=== PATIENT | female | born 1960 | race Two or more races ===

== ENCOUNTER 2016-09-01 18:25 | Emergency (ER) | payer MEDICAID ==
[2016-09-09 12:13] VITALS: BMI 26.9
== END 2016-09-01 22:44 | disposition home or self-care (01) ==
LOC: D.ER 18:25
DX: E11.65 Type 2 diabetes mellitus with hyperglycemia (principal); I10 Essential (primary) hypertension; R53.1 Weakness

== ENCOUNTER 2016-09-08 21:25 | Inpatient (IN) | payer MEDICAID ==
[~2016-09-08] VITALS: Ht 157.5 cm; Wt 62.9 kg
[2016-09-09 00:49] LABS: BASOPHILS 0.2 % (0.0-2.0); HEMATOCRIT 41.3 % (36.0-48.0); IMMATURE GRANULOCYTES 0.2 % (0-5); LYMPHOCYTES 39.2 % (15-50); MCH 30.8 pg (26.0-34.0); MCHC 33.9 g/dL (31.0-37.0); MCV 90.8 fL (80.0-100.0); MEAN PLATELET VOLUME 11.3 fL (7.4-10.4); MONOCYTES 6.6 % (2-11); NEUTROPHILS 52.8 % (40-80); PLATELET COUNT 222 10x3/uL (130-400); RBC 4.55 10x6/uL (4.00-5.40); RDW 13.9 % (11.5-14.5)
[2016-09-09 00:50] LABS: APPEARANCE CLEAR (CLEAR); BILIRUBIN NEGATIVE (NEGATIVE); COLOR YELLOW (YELLOW); GLUCOSE 50 mg/dL (NEGATIVE); KETONE NEGATIVE (NEGATIVE); LEUKOCYTE ESTERASE NEGATIVE (NEGATIVE); NITRITE NEGATIVE (NEGATIVE); PROTEIN NEGATIVE (NEGATIVE); SPECIFIC GRAVITY 1.015 (1.005-1.020); UROBILINOGEN NORMAL (NORMAL)
[2016-09-09 01:07] LABS: APTT 25.7 SECONDS (22.8-39.4); INR 0.89 (0.85-1.17); PROTIME 11.9 SECONDS (11.6-15.0)
[2016-09-09 01:13] LABS: ALBUMIN 3.3 g/dL (3.4-5.0); ALKALINE PHOSPHATASE 108 U/L (46-116); ALT (SGPT) 20 U/L (10-68); CALC OSMOLALITY 284 mosm/kg (275-300); CARBON DIOXIDE 26.5 mmol/L (21.0-32.0); CHLORIDE - SERUM 100 mmol/L (98-107); POTASSIUM - SERUM 3.8 mmol/L (3.5-5.1); PROTEIN - SERUM 7.5 g/dL (6.4-8.2); SODIUM 136 mmol/L (136-145); UREA NITROGEN 29 mg/dL (7-18); eGFR NON AFRICAN AMERICAN 61 mL/min (90-120)
[2016-09-09 01:18] LABS: CKMB 0.1 U/L (0.0-3.6); CREATINE KINASE 66 UL (21-215); GLUCOSE 223 mg/dL (74-106); TROPONIN-I < 0.017 ng/mL (0.000-0.060)
[2016-09-09 01:19] LABS: C-REACTIVE PROTEIN 1.4 mg/dL (0.0-0.9); MAGNESIUM - SERUM 1.9 mg/dL (1.8-2.4); THYROID STIMULATING HORMONE 1.49 uIU/mL (0.36-3.74)
[2016-09-09 02:17] VITALS: BP 153/61; BMI 26.9
[2016-09-09] MEDS ORDERED: NITROSTAT0.4 MG SL (03:18)
[2016-09-09] MEDS ORDERED: GLUCOTROL 5 MG T5 MG PO (03:19)
[2016-09-09] MEDS ORDERED: ZOCOR20 MG PO (03:20)
[2016-09-09] MEDS ORDERED: COREG25 MG PO (03:20)
[2016-09-09] MEDS ORDERED: PLAVIX75 MG PO (03:21)
[2016-09-09] MEDS ORDERED: NORVASC10 MG PO (03:25)
[2016-09-09] MEDS ORDERED: LIPITOR80 MG PO (03:26)
[2016-09-09] MEDS ORDERED: HYDROCHLOROTHIA25 MG PO (03:27)
[2016-09-09] MEDS ORDERED: LANTUS INSULIN10 ML SC (03:28)
[2016-09-09] MEDS ORDERED: NOVOLOG100 U/M1 SC (03:29)
[2016-09-09] MEDS ORDERED: WELLBUTRIN XL150 M1 PO (03:30)
[2016-09-09] MEDS ORDERED: BUPROPION HCL150 M1 PO (03:33)
[2016-09-09 04:57] VITALS: BP 151/61
--- NOTE | 2016-09-09 07:53 | NUR ---
LAYING ON LEFT SIDE, AROUSES EASILY. DENIES NEEDS AT PRESENT TIME. ON HEART MONITOR SHOWING SR, HR 64. LEFT HAND SEEN WITH SALINE LOCK. NPO STATUS FOR MRI. WILL CONTINUE TO MONITOR.
[2016-09-09 08:00] VITALS: BP 126/61
[2016-09-09 11:54] VITALS: BP 136/61
[2016-09-09 12:13] VITALS: Ht 157.5 cm; Wt 62.9 kg
--- NOTE | 2016-09-09 13:48 | NUR ---
TO MRI VIA WHEELCHAIR.
--- NOTE | 2016-09-09 14:26 | NUR ---
RETURNS FROM MRI.
--- NOTE | 2016-09-09 14:35 | NUR ---
RATIONALE FOR SCD'S EXPLAINED. REFUSES SCD'S
[2016-09-09 15:49] VITALS: BP 136/61
--- NOTE | 2016-09-09 19:39 | NUR ---
BEDSIDE REPORT COMPLETED NO DISTRESS OBSERVED PT EYES CLOSED AND PT APPERS TO BE SLEEPING BED LOW AND LOCKED AND CALL LIGHT IN REACH WILL MONITOR
--- NOTE | 2016-09-09 21:33 | NUR ---
PT ASSESSMENT COMPLETED PT LAYING IN BED TV ON PT PHONE IN PT HAND AND NO DISTRESS OBSERVED PT DENIES PAIN, NEEDS OR WANTS AT THIS TIME RESPERATIONS EVEN AND UNLABORED CALL LIGHT IN REACH SRX2 BE LOW AND LOCKED WILL MONITOR
[2016-09-09 22:37] VITALS: BP 150/58
[2016-09-10 01:38] VITALS: BP 146/46
--- NOTE | 2016-09-10 02:34 | NUR ---
PT LAYING IN BED NO DISTRESS OBSERVED CALL LIGHT IN [facility] SRX2 BED LOW AND LOCKED WILL MONITOR
--- NOTE | 2016-09-10 03:30 | NUR ---
PT LAYING IN BED NO DISTRES OBSERVED CALL LIGHT IN REACH SRX2 BED LOW AND LOCKED WILL MONITOR
[2016-09-10 05:55] VITALS: BP 148/47
--- NOTE | 2016-09-10 06:24 | NUR ---
T REFUSING LAB DRAW AT THIS TIME
--- NOTE | 2016-09-10 07:21 | NUR ---
RECEIVED PT REPORT. NO OTHER NEEDS AT THIS TIME. WILL CONTINUE PLAN OF CARE.,
[2016-09-10 07:49] VITALS: BP 146/64
--- NOTE | 2016-09-10 07:57 | NUR ---
PT IS ALERT. ASSESSMENT DONE PER FLOWSHEET. NO CO PAIN AT THIS TIME. WILL CONTINUE TO MNONTIOR
[2016-09-10 08:23] LABS: BASOPHILS 0.2 % (0.0-2.0); EOSINOPHILS 1.1 % (0-7); HEMATOCRIT 39.5 % (36.0-48.0); HEMOGLOBIN 13.1 g/dL (12-16); IMMATURE GRANULOCYTES 0.2 % (0-5); LYMPHOCYTES 31.7 % (15-50); MCH 30.4 pg (26.0-34.0); MCHC 33.2 g/dL (31.0-37.0); MCV 91.6 fL (80.0-100.0); MEAN PLATELET VOLUME 11.3 fL (7.4-10.4); MONOCYTES 9.7 % (2-11); NEUTROPHILS 57.1 % (40-80); PLATELET COUNT 215 10x3/uL (130-400); RBC 4.31 10x6/uL (4.00-5.40); RDW 13.6 % (11.5-14.5); WBC 9.1 10x3/uL (4.8-10.8)
[2016-09-10 08:52] LABS: ANION GAP 12.2 mmol/L (8-16); CALCIUM 9.2 mg/dL (8.5-10.1); CARBON DIOXIDE 26.7 mmol/L (21.0-32.0); CHOL - HDL RATIO 3.9 ratio (2.3-4.1); CREATININE - SERUM 1.2 mg/dL (0.6-1.3); POTASSIUM - SERUM 3.9 mmol/L (3.5-5.1)
[2016-09-10 11:47] VITALS: BP 134/62
--- NOTE | 2016-09-10 13:00 | NUR ---
PT IS ALERT. NO SS OF DISTRESS AT THIS TIME. WILL CONTINUE TO MONITOR.
[2016-09-10 15:54] VITALS: BP 155/57
--- NOTE | 2016-09-10 20:10 | NUR ---
REPORT RECEIVED AND CARE ASSUMED. PATIENT ALERT. ASSESSMENT COMPLETED PER FLOW SHEET. NO S/S OF DISTRESS NOTED. WILL CONTINUE TO MONITOR.
[2016-09-10 20:37] VITALS: BP 139/43
[2016-09-11 00:17] VITALS: BP 134/45
[2016-09-11 04:29] VITALS: BP 150/63
--- NOTE | 2016-09-11 07:27 | NUR ---
RECEIVED PT REPORT. NO OTHER NEEDS AT THIS TIME. WILL CONTINUE PLAN OF CARE. NO OTHER NEEDS AT THIS TIME. WILL CONTINUE TO MONITOR. L
[2016-09-11 07:45] VITALS: BP 123/55
[2016-09-11 11:57] VITALS: BP 125/46
--- NOTE | 2016-09-11 12:19 | NUR ---
PT IS ALERT. ASSESSMENT DONE PER FLOWSHEET. NO CO PAIN AT THIS TIME. WILL CONTINUE TO MONITOR.
[2016-09-11] MEDS ORDERED: BAYER ASPIRIN325 MG PO (12:31)
--- NOTE | 2016-09-11 15:17 | NUR ---
PT IS ALERT. DC TEACHING IS COMPLETE AND IV DC'D NO OTHER NEEDS.
--- NOTE | 2016-09-12 15:45 | EC ---
PATIENT:TJ CRAIG DATE OF SERVICE: 09/10/16 SEX: F MEDICAL RECORD: [id number] DATE OF : 60 LOCATION:D. D.211 AGE OF PATIENT: 56 ADMISSION DATE: 09/10/16 REFERRING PHYSICIAN: INTERPRETING PHYSICIAN: NELIDA DAMICO M.D. ECHOCARDIOGRAM REPORT ECHO CHARGES 4 ECHO COMPLETE CLINICAL DIAGNOSIS: TIA HX HTN ECHOCARDIOGRAPHIC MEASUREMENTS (adult normal given) AC root (d.<3.7cm) 3.1 LV Septum d (<1.2 cm> 1.6 Valve Excursion 1.9 LV Septum (systole) 1.9 Left Atria (s.<4.0cm> 3.6 LVPW d(<1.2cm) 1.5 RV (d.<2.3cm) 2.9 LVPW (sytole) 1.9 LV diastole(<5.6CM) 4.3 MV E-F(>70mm/sec) LV systole 2.8 LVOT Diameter 1.6 MV exc.(>10mm) 1.6 Est.ejection fraction (50-75%) Pericardial Effusion N DOPPLER: LVIT A 87.0 E 73.0 LA RVSP 15 LVOT 93 AOP1/2T Asc. Ao 133 RVOT 71 RA PA 86 AV Gradient Peak 7.04 AV Mean 4.0 AV Area 1.4 MV Gradient Peak 3.05 MV Mean 1.13 MV Area COMMENTS: Larry Car Operator: Mynor MARTINEZ Traffic Incident Management Manager:2 Dr. Damico TAPE# PACS DATE OF SERVICE: 09/10/2016 REFERRING PHYSICIAN: Blake Todd MD INDICATION: TIA. DESCRIPTION: Left ventricle demonstrates left ventricular hypertrophy. No wall motion abnormalities are noted. Estimated ejection fraction is 60%. There is no evidence of any mass or thrombus in the left ventricle apex. Mitral valve is structurally normal. There is no regurgitation or prolapse seen. Left atrium ECHOCARDIOGRAM REPORT [id number] TJ CRAIG is normal in size. The aortic valve is trileaflet. There is no stenosis or regurgitation seen. Right ventricle is mildly dilated. Tricuspid valve is structurally normal. There is trivial regurgitation seen. Right atrium is normal in size. There is no pericardial effusion noted. IMPRESSION: 1. Left ventricular hypertrophy with preserved ejection fraction of 60%. 2. Trivial tricuspid regurgitation. 3. No evidence of any mass or thrombus in the left ventricle apex. 4. No evidence of atrial septal defect, ventricular septal defect or patent foramen ovale. TRANSINT:[id number] Voice Confirmation ID: [id number] DOCUMENT ID: [id number] NELIDA DAMICO M.D. at 1545 CC: [id number] DICTATION DATE: 09/10/16 0959 EGG PACKER: 09/10/16 2144 DIS IN 09/11/16 [id number] [place] [address]
== END 2016-09-11 15:20 | disposition home or self-care (01) | DRG 66 ==
LOC: D.ER 21:25 → D.M2 09-09 01:15 → OBSVTIME 09-09 01:15 → D.M2 09-09 01:15
PROVIDERS: Family Medicine; ADMIT Family Medicine
DX: I63.8 Other cerebral infarction (principal); I65.02 Occlusion and stenosis of left vertebral artery; I25.10 Atherosclerotic heart disease of native coronary artery without angina pectoris; E11.9 Type 2 diabetes mellitus without complications; Z79.4 Long term (current) use of insulin; I10 Essential (primary) hypertension; R51 Headache; E78.5 Hyperlipidemia, unspecified; E86.0 Dehydration; Z95.5 Presence of coronary angioplasty implant and graft; Z72.0 Tobacco use

== ENCOUNTER 2016-12-04 02:56 | Observation (INO) | payer MEDICAID ==
[~2016-12-04] VITALS: Ht 157.5 cm; Wt 64.5 kg
--- NOTE | ~2016-12-04 | OP ---
PATIENT NAME: TJ CRAIG MEDICAL RECORD: [id number] :60 [facility] DATE:12/04/16 SURGEON: REYNOLD JOHNSON MD DATE OF OPERATION: 12/05/2016 PROCEDURE: Left heart catheterization, selective coronary angiography, right femoral artery approach. CATHETERS: A 5-Spanish sheath, 5/4 left and right Óscar, 5/4 pig. The procedure was tolerated. We proceeded with PTCA stenting of the right coronary. FINDINGS: Left ventriculography in the 30-degree CORD[place] view: Normal wall motion and normal systolic function. CORONARY ANATOMY: LEFT MAIN: Left main is free of disease. LAD: LAD has a 50% stenosis before takeoff of the diagonal. CIRCUMFLEX: Circumflex is free of disease. RIGHT CORONARY ARTERY: Has a 90% plus stenosis ____ takeoff of the RV branch. IMPRESSION: Acute coronary syndrome secondary to critical disease of the right coronary. PLAN: Intervention momentarily. DESCRIPTION OF PROCEDURE: A 5-Spanish sheath was exchanged for a 6-Spanish sheath. A hockey stick guiding catheter with side holes provided good guide catheter support followed by a 300 cm [place] XT wire was placed across the occluded right down its course of vessel followed by a 2.5 x 18 mm ____ Resolute drug-eluting stent was inflated up to 14 atmospheres for 45 seconds. Final injection shows excellent resolution of a 90% stenosis. No significant residual, good step down distally. MARY flow was 3 throughout the procedure. Heparin was used in the case. Sheath closed with ExoSeal device. TRANSINT:[id number] Voice Confirmation ID: [id number] DOCUMENT ID: [id number] REYNOLD JOHNSON MD CC: [id number] DICTATION DATE: 12/05/16 1447 TECHNICAL MARKETING CONSULTANT: 12/06/16 0004 DIS IN 12/05/16 [facility] [address] [id number]
--- NOTE | ~2016-12-04 | HEMODYNAMI ---
PATIENT:TJ CRAIG MEDICAL RECORD: [id number] : 60 LOCATION:[facility] [id number] ADMISSION DATE: 12/04/16 Generatedon:12/05/201614:50 Patient name: TJ CRAIG Patient #: [id number] : 1960 Date of study: 12/05/2016 Page: Of Hemodynamic Procedure Report Patient Data Patient Demographics Procedure consent was obtained First Name: TJ Gender: Female Last Name: KIARA : 1960 Patient #: [id number] Age: 56 year(s) Race: Other SSN: [id number] Additional ID: [id number] Contact details Address: [address] [place] [address] State: [place] City: [place] Zip code: [address] Admission Admission Data Admission Date: 12/04/2016 Admission Time: 5:49 Arrival Date: 12/04/2016 Arrival Time: 5:49 Admit Source: Other Insurance Payor: Private Room #: D.1220 health insurance Weight (lbs.): 143.3 Weight (kg.): 65 Lab Results Lab Result Date: 12/05/2016 Lab Result Time: 0:00 Biochemistry Name Units Result Min Max BUN mg/dl 22 --(----)-* 7 18 Creatinine mg/dl 1.2 --(---*)-- 0.6 1.3 CBC Name Units Result Min Max Hemoglobin g/dl 12 *-(----)-- 13.5 17.5 Procedure Procedure Types Cath Procedure Diagnostic Procedure LHC LHC w/Coronaries PCI Procedure Coronary Stent Initial Miscellaneous Procedures Moderate Sedation up to 15 minutes Procedure Description Procedure Date Procedure Date: 12/05/2016 Procedure Start Time: 14:13 Procedure End Time: 14:42 Procedure Staff Name Function Hood Martínez MD Performing Physician Seble Jefferson RT Scrub Carolina Bassett RN Nurse Brionna Rodriguez RT Monitor Indication Angina Procedure Data Cath Procedure Fluoroscopy Diagnostic fluoroscopy Total fluoroscopy Time: 4.9 time: 4.9 min min Diagnostic fluoroscopy Total fluoroscopy dose: 597 dose: 597 mGy mGy Contrast Material Contrast Material Type Amount (ml) Isovue 370 92 Entry Location Entry Primary Successful Side Size Upsize Upsize Entry Closure Succes sful Closure Location (Fr) 1 (Fr) 2 (Fr) Remarks Device Remarks Femoral Right 5 Fr 6 Fr Exoseal artery Short Estimated blood loss: 5 ml Diagnostic catheters Device Type Used For End Catheter Placement Cordis 5Fr JL 4.0 Left Coronary Catheter (MP) Angiography Cordis 5Fr 3DRC Catheter Right Coronary (MP) Angiography Cordis 5Fr Pigtail LV Angiography Catheter (MP) Procedure Complications No complications Procedure Medications Medication Administration Route Dosage Oxygen NC 2 l/min Heparin Flush Bag added to field 2 bags (1000units/500ml NS) 0.9% NaCl I.V. 100 ml/hr Versed I.V. 1 mg Fentanyl I.V. 50 mcg Versed I.V. 1 mg Fentanyl I.V. 50 mcg Versed I.V. 1 mg Fentanyl I.V. 50 mcg Heparin Bolus I.V. 4000 units Nitroglycerin IC/IA I.C. 150 mcg Hemodynamics Rest HGB: 12 (g/dl) Heart Rate: 68 (bpm) Pressure Samples Time Site Value (mmHg) Purpose Heart Use Rate(bpm) 14:25 LV 170/53,57 Snapshot 70 Gradients Valve Time Site Site Mean SEP/DFP Peak To Heart Use 1 2 (mmHg) (sec/min) Peak Rate (mmHg) (bpm) Aortic 14:26 LV AO 69 Snapshots Pre Cath Intra NCS Post Cath Vital Signs Time Heart Resp SPO2 etCO2 OX0zpis NIBP (mmHg) Rhythm Pain Sedation Rate (ipm) (%) (mmHg) (mmHg) Status Level (bpm) 14:06:14 67 17 94 0 0 171/76(125) NSR 0 (11) 10(A) , No pain 14:10:32 65 19 94 0 0 139/71(108) NSR 0 (11) 10(A) , No pain 14:14:52 65 17 93 0 0 138/68(100) NSR 0 (11) 10(A) , No pain 14:19:06 66 20 93 0 0 137/76(104) NSR 0 (11) 10(A) , No pain 14:23:22 66 16 94 0 0 147/69(125) NSR 0 (11) 9(A) , No pain 14:27:30 70 16 93 0 0 137/80(113) NSR 0 (11) 9(A) , No pain 14:31:36 69 17 94 0 0 124/74(117) NSR 0 (11) 9(A) , No pain 14:35:50 70 19 92 0 0 119/70(85) NSR 0 (11) 9(A) , No pain 14:39:59 72 17 94 0 0 127/73(108) NSR 0 (11) 10(A) , No pain Medications Time Medication Route Dose Verified Delivered Reason Notes Effectiveness by by 14:05:31 Oxygen NC 2 Hood Figueroa used for l/min St. Shamar Bassett RN procedure 14:05:48 Heparin Flush added 2 Hood Morataya used for Bag to bags [facility]. Shamar Day (1000units/500ml field MD GONZALEZ NS) 14:05:57 0.9% NaCl I.V. 100 Hood Figueroa Per physician ml/hr St. Shamar Bassett RN, MD 14:08:01 Fentanyl I.V. 50 Hood Figueroa for sedation mcg [facility]. Shamar Bassett RN, MD 14:08:56 Versed I.V. 1 mg Hood Figueroa for sedation St. Shamar Bassett RN, MD 14:14:28 Versed I.V. 1 mg Hood Figueroa for sedation St. Shamar Bassett RN, MD 14:14:32 Fentanyl I.V. 50 Hood Figueroa for sedation mcg St. Shamar Bassett RN, MD 14:23:41 Versed I.V. 1 mg Hood Figueroa for sedation St. Shamar Bassett RN, MD 14:23:46 Fentanyl I.V. 50 Hood Figueroa for sedation mcg St. Shamar Bassett RN, MD 14:27:24 Heparin Bolus I.V. 4000 Hood Figueroa for verifi ed units St. Shamar Bassett RN anticoagulation with dr MD schulte 14:38:22 Nitroglycerin I.C. 150 Hood Morataya for IC/IA mcg St. Shamar Chavis MD, MD Procedure Log Time Note 13:30:44 Diagnostic Cath Status : Elective 13:31:07 Carolina Bassett RN sent for patient. Start room use. 13:31:08 Time tracking: Regular hours 13:31:13 Plan of Care:Hemodynamics will remain stable., Cardiac rhythm will remain stable., Comfort level will be maintained., Respiratory function will remain adequate., Patient/ family verbilizes understanding of procedure., Procedure tolerated without complication., Recovers from procedure without complications.. 13:44:54 Informed consent obtained and on chart 13:45:01 Admit Source: Other 13:45:09 Arrival Date: 12/04/2016 5:49:00 AM 13:45:18 Insurance Payor : Private health insurance 13:47:05 Lab Result : Hemoglobin 12 g/dl 13:47:05 Lab Result : Creatinine 1.2 mg/dl 13:47:05 Lab Result : BUN 22 mg/dl 13:47:35 Indication : Angina 13:56:30 Patient received from Other to CCL 1 Alert and oriented. Tansferred to table in Supine position. 13:56:31 Warm blankets applied, and kingston hugger turned on for patient comfort. 13:56:32 Correct patient and procedure confirmed by team. 13:56:33 ECG and BP/O2 sat monitors applied to patient. 14:04:56 Baseline sample Acquired. 14:04:56 Vital chart was started 14:05:00 Rhythm: sinus rhythm 14:05:01 Full Disclosure recording started 14:05:05 H&P Date Dictated: 12/05/2016 New H&P dictated by physician.. 14:05:07 Pre-procedure instructions explained to patient. 14:05:07 Pre-op teaching completed and patient verbalized understanding. 14:05:08 Family in waiting room. 14:05:11 Patient NPO since Midnight. 14:05:15 Is the patient allergic to Iodine/contrast media? No. 14:05:17 Was the patient premedicated? No 14:05:19 Is patient on blood thinner?Yes 14:05:23 Patient diabetic? Yes. 14:05:24 If diabetic: On Metformin? Yes 14:05:28 If on Metformin: Last Dose? 12/04/2016 14:05:31 Oxygen 2 l/min NC was administered by Carolina Bassett RN; used for procedure; 14:05:33 Previous problem with sedation/anesthesia? No ? 14:05:41 Snore? Yes 14:05:42 Sleep apnea? No 14:05:43 Deviated septum? No 14:05:44 Opens mouth fully? Yes 14:05:45 Sticks out tongue? Yes 14:05:47 Airway obstruction? No ? 14:05:48 Heparin Flush Bag (1000units/500ml NS) 2 bags added to field was administered by Hood Martínez MD; used for procedure; 14:05:50 Dentures? No ? 14:05:56 Pre procedure: right dorsailis pedis pulse 1+ Palpable, but thready & weak; easily obliterated 14:05:57 0.9% NaCl 100 ml/hr I.V. was administered by Carolina Bassett RN; Per physician; 14:05:58 Patient pain scale 0/10 ?. 14:06:05 IV patent on arrival in right antecubital with 0.9% NaCl at [facility]. 14:06:07 Lab results completed and on chart. 14:06:13 Right groin area was prepped with chlora-prep and draped in sterile fashion 14:06:14 Alarms reviewed by R. N. 14:06:14 Sharps counted by scrub and verified by R.N. 14:06:16 Physician arrived 14:06:17 --------ALL STOP TIME OUT------ 14:06:17 Final Timeout: patient, procedure, and site verified with staff and physician. All members of the team are in agreement. 14:06:20 Right groin site verified by team. 14:06:24 Physical assessment completed. ASA score P 2 - A patient with mild systemic disease as per Hood Martínez MD. 14:06:27 Sedation plan: IV Moderate Sedation Versed, Fentanyl 14:06:31 Use device set Femoral Dx 14:06:32 Acist Syringe opened to sterile field. 14:06:33 Bag Decanter opened to sterile field. 14:06:33 Medline Cath Pack opened to sterile field. 14:06:33 Terumo 5Fr Verbena Sheath opened to sterile field. 14:06:34 St Remy 260cm J .035 wire opened to sterile field. 14:06:35 Acist Hand Control opened to sterile field. 14:06:35 Acist Manifold opened to sterile field. 14:06:36 Diagnostic Infinity 5Fr Multipack catheter opened to sterile field. 14:06:36 Tegaderm 4 x 4 opened to sterile field. 14:07:07 Patient Weight : 143.3 kg 14:08:01 Fentanyl 50 mcg I.V. was administered by Carolina Bassett RN; for sedation; 14:08:56 Versed 1 mg I.V. was administered by Carolina Bassett RN; for sedation; 14:13:07 Procedure started. 14:13:10 Local anesthetic to right femoral artery with Lidocaine 2% by Hood Martínez MD.INITIAL ACCESS ONLY 14:13:22 A 5 Fr sheath was inserted into the Right Femoral artery 14:13:32 A Cordis 5Fr JL 4.0 Catheter (MP) was advanced over the wire and used for Left Coronary Angiography. 14:14:28 Versed 1 mg I.V. was administered by Carolina Bassett RN; for sedation; 14:14:32 Fentanyl 50 mcg I.V. was administered by Carolina Bassett RN; for sedation; 14:20:12 LCA angiography performed. 14:20:17 Injector settings: Ml/sec: 3, Volume: 6, 14:23:08 Catheter removed. 14:23:13 A Cordis 5Fr 3DRC Catheter (MP) was advanced over the wire and used for Right Coronary Angiography. 14:23:41 Versed 1 mg I.V. was administered by Carolina Bassett RN; for sedation; 14:23:43 RCA angiography performed. 14:23:46 Fentanyl 50 mcg I.V. was administered by Carolina Bassett RN; for sedation; 14:23:47 Injector settings: Ml/sec: 3, Volume: 6, 14:24:21 Catheter removed. 14:24:30 A Cordis 5Fr Pigtail Catheter (MP) was advanced over the wire and used for LV Angiography. 14:24:43 Bionostratronic Launcher 6Fr HS I SH guide catheter opened to sterile field. 14:25:08 Langhar BasixCompak Inflation Kit opened to sterile field. 14:25:09 Zamudio Whisper J 300cm 0.014 guide wire opened to sterile field. 14:26:11 LV hemodynamics recorded. 14:26:12 LV gram done using CORDOVA 14:26:36 EF : 55 % 14:26:48 Terumo 6Fr Verbena Sheath opened to sterile field. 14:26:48 Zamudio Whisper J 300cm 0.014 guide wire opened to sterile field. 14:27:16 Catheter removed. 14:27:24 Heparin Bolus 4000 units I.V. was administered by Carolina Bassett RN; for anticoagulation; verified with dr schulte 14::24 Sheath upsized to a 6 Fr Short. 14:27:32 6 Fr hs 1 sh guide catheter was inserted over the wire 14:27:38 whisper wire advanced. 14:32:03 Wire advanced across lesion. 14:32:27 Wire removed. 14:32:37 Zamudio [place] 300cm 0.014 guide wire opened to sterile field. 14:33:18 cougar wire advanced. 14:35:03 Wire advanced across lesion. 14:36:47 Inflation Number: 1 A Medtronic Resolute 2.5 X 18 stent was prepped and advanced across the Mid RCA. The stent was deployed at 10 LEA for 0:45 (min:sec). 14:38:22 Nitroglycerin IC/IA 150 mcg I.C. was administered by Hood Martínez MD; for vasodilation; 14:38:38 Stent catheter was removed intact over wire. 14:38:39 Wire removed. 14:38:40 Guide catheter removed. 14:38:54 Cordis 6Fr Exoseal opened to sterile field. 14:39:09 Sheath removed intact; hemostasis achieved with Exoseal to the Right Femoral artery. 14:39:21 Procedure ended.(Physican Out) 14:39:42 Fluoroscopy time 04.90 minutes. 14:39:48 Fluoroscopy dose: 597 mGy 14:39:48 Flurop Dose total: 597 14:40:00 Contrast amount:Isovue 370 92ml. 14:40:03 Sharps counted by scrub and verified by R.N. 14:40:05 Insertion/operative site no bleeding no hematoma. 14:40:09 Post-op/insertion site Right Femoral artery dressed using a 4 x 4 and Tegaderm. 14:40:12 Post right femoral artery:stable 14:40:14 Post Procedure Pulses reassessed and unchanged 14:40:18 Post procedure rhythm: unchanged. 14:40:21 Estimated blood loss: 5 ml 14:40:23 Post procedure instruction explained to patient.Patient verbalizes understanding. 14:40:24 Patient needs reinforcement of post procedure teaching. 14:40:38 Procedure type changed to Cath procedure, Diagnostic procedure, LHC, LHC w/Coronaries, PCI procedure, Coronary Stent Initial, Miscellaneous Procedures, Moderate Sedation up to 15 minutes 14:41:42 Procedure and supply charges have been captured, reviewed, submitted and are correct. 14:41:54 Procedure Complication : No complications 14:42:02 Vital chart was stopped 14:42:03 See physician's report for complete and final results. 14:42:08 Report given to Other. 14:42:12 Patient transfered to Other with Stretcher. 14:42:15 Procedure ended. 14:42:15 Full Disclosure recording stopped 14:42:46 ACC-PCI Only Patient was given prescriptions, or instructed by Hood Martínez MD to start/continue the following medications upon discharge: Plavix 14:42:48 End room use (Document Last) Intervention Summary Intervention Notes Time ActionType Lesion and Equipment Action# Pressure Duration Attributes Used 14:36:47 Place stent Mid RCA Medtronic 1 10 00:45 Resolute 2.5 X 18 stent Device Usage Item Name Manufacture Quantity Catalog Hospital Part Current Minimal Lot# / Number Charge Number Stock Stock Serial# Code Acist Acist 1 49002 195749 134710 009734 20 Syringe Medical Systems Inc Bag Microtek 1 2002S 211752 45036 513793 5 [employer] Medline Cardinal 1 [id number] 047956 10623 044911 5 Cath Pack Health Terumo 5Fr Terumo 1 [id number] 535425 043327 719102 [address] Remy St Remy 1 200934 241535 936168 623422 30 260cm J .035 wire Acist Hand Acist 1 64600 624660 334386 271029 5 Control Medical Systems Inc Acist Acist 1 77999 638197 103389 542903 5 Manifold Medical Systems Inc Diagnostic Cardinal 1 [id number] 893140 14154 967326 30 Infinity Health 5Fr Multipack catheter Tegaderm 4 3M 1 1626W 990776 564295 098552 5 x 4 Cordis 5Fr Cardinal 1 113034 5 JL 4.0 Health Catheter (MP) Cordis 5Fr Cardinal 1 519051 5 3DRC Health Catheter (MP) Cordis 5Fr Cardinal 1 899947 5 Pigtail Health Catheter (MP) Medtronic Medtronic 1 [id number] 623100 74826 958634 1 Launcher 6Fr HS I SH guide catheter Merit Merit 1 [id number] 202472 884201 449559 15 BasixCompak Medical Inflation Kit Zamudio Zamudio 2 [id number] 538555 795624 316950 5 Whisper J Vascular 300cm 0.014 guide wire Terumo 6Fr Terumo 1 [id number] 839116 874235 064464 40 Verbena Sheath Zamudio Zamudio 1 [id number] 021458 169861 769702 1 [place] Vascular 300cm 0.014 guide wire Medtronic Medtronic 1 [id number] 808765 862659 5 [id number] Resolute 2.5 X 18 stent Cordis 6Fr Cardinal 1 [id number] 321642 031469 317713 10 [facility] Signature Audit [place] Stage Time Signature Unsigned Intra-Procedure 12/05/2016 Brionna Rodriguez 2:50:26 PM RT(R) Signatures Monitor : Brionna Rodriguez RT Signature : Date : Time : [facility] [address] [place] [place] [address]
[~2016-12-04 02:56] MED LIST: BAYER ASPIRIN325 MG PO; BUPROPION HCL150 M1 PO; COREG25 MG PO; GLUCOTROL 5 MG T5 MG PO; HYDROCHLOROTHIA25 MG PO; LANTUS INSULIN10 ML SC; LIPITOR80 MG PO; NITROSTAT0.4 MG SL; NORVASC10 MG PO; NOVOLOG100 U/M1 SC; PLAVIX75 MG PO; WELLBUTRIN XL150 M1 PO; ZOCOR20 MG PO
[2016-12-04 03:36] LABS: BASOPHILS 0.2 % (0.0-2.0); EOSINOPHILS 3.5 % (0-7); HEMATOCRIT 39.2 % (36.0-48.0); HEMOGLOBIN 13.1 g/dL (12-16); IMMATURE GRANULOCYTES 0.2 % (0-5); LYMPHOCYTES 36.5 % (15-50); MCH 30.8 pg (26.0-34.0); MCHC 33.4 g/dL (31.0-37.0); MEAN PLATELET VOLUME 11.3 fL (7.4-10.4); MONOCYTES 6.6 % (2-11); PLATELET COUNT 259 10x3/uL (130-400); RBC 4.26 10x6/uL (4.00-5.40); RDW 14.5 % (11.5-14.5); WBC 10.3 10x3/uL (4.8-10.8)
[2016-12-04 03:44] LABS: INR 0.87 (0.85-1.17); PROTIME 11.7 SECONDS (11.6-15.0)
[2016-12-04 03:45] LABS: APTT 28.7 SECONDS (22.8-39.4)
[2016-12-04 03:50] LABS: ALBUMIN 3.5 g/dL (3.4-5.0); ALKALINE PHOSPHATASE 123 U/L (46-116); ALT (SGPT) 20 U/L (10-68); CALC OSMOLALITY 288 mosm/kg (275-300); CALCIUM 8.9 mg/dL (8.5-10.1); CARBON DIOXIDE 27.7 mmol/L (21.0-32.0); CHLORIDE - SERUM 102 mmol/L (98-107); CREATININE - SERUM 1.5 mg/dL (0.6-1.3); GLUCOSE 247 mg/dL (74-106); POTASSIUM - SERUM 3.7 mmol/L (3.5-5.1); PROTEIN - SERUM 7.9 g/dL (6.4-8.2); SODIUM 139 mmol/L (136-145); UREA NITROGEN 20 mg/dL (7-18); eGFR NON AFRICAN AMERICAN 38 mL/min (90-120)
[2016-12-04 03:53] LABS: BILIRUBIN - TOTAL 0.09 mg/dL (0.2-1.3)
[2016-12-04 04:01] LABS: CHOL - HDL RATIO 5.9 ratio (2.3-4.1); CHOLESTEROL, TOTAL 223 mg/dL (0-200); CKMB 0.6 U/L (0.0-3.6); CREATINE KINASE 49 UL (21-215); HDL CHOLESTEROL 38 mg/dL (32-96); LDL CHOLESTEROL 112 mg/dL (0-100); LDL-HDL RATIO 2.9 ratio (1.5-3.5); TRIGLYCERIDE 365 mg/dL (30-200)
[2016-12-04 04:06] LABS: TROPONIN-I < 0.017 ng/mL (0.000-0.060)
--- NOTE | 2016-12-04 08:17 | NUR ---
RECEIVED PT VIA STRETCHER FROM ED, PT TRANSFERS SELF TO BED WITH NO DIFFICULTY, ADMITTING ASSESSMENT AND HISTORY STARTED, SEE FLOW SHEET
[2016-12-04 08:38] VITALS: BP 150/67; Ht 157.5 cm; Wt 64.5 kg
--- NOTE | 2016-12-04 09:03 | NUR ---
ADMITTING ASSESSMENT AND HISTORY COMPLETED, SALINE LOCK IN RIGHT AC INTACT, CONVERTED TO IV, NS HUNG IV INFUSING VIA PUMP AT 50 ML/HR, SEE EMAR, PT ORIENTED TO ROOM, BED IN LOW POSITION, SIDE RAILS X 2, CALL LIGHT IN REACH, PT DENIES NEEDS AT THIS TIME
--- NOTE | 2016-12-04 09:40 | NUR ---
DR LEDBETTER TO ROOM FOR EVALUATION
--- NOTE | 2016-12-04 10:04 | NUR ---
LAB TO ROOM FOR BLOOD DRAW
--- NOTE | 2016-12-04 10:30 | NUR ---
PT RESTING WITH EYES CLOSED, RESP QUIET, NO DISTRESS NOTED, LEFT UNDISTURBED AT THIS TIME
--- NOTE | 2016-12-04 11:03 | NUR ---
PT RESTING WITH EYES CLOSED, AROUSES WITH SOFT VERBAL STIMULATION, TELEMETRY PLACED ON, PT DENIES NEEDS OR PAIN AT THIS TIME
--- NOTE | 2016-12-04 12:13 | NUR ---
PT JUST FINISHED LUNCH, DENIES NEEDS OR PAIN AT THIS TIME, REPORTS "FEELING BETTER", LUNCH TRAY REMOVED
[2016-12-04 13:00] VITALS: BP 166/71
--- NOTE | 2016-12-04 13:00 | NUR ---
PT VISITING WITH SPOUSE, VS OBTAINED, DENIES NEEDS OR PAIN
--- NOTE | 2016-12-04 13:13 | NUR ---
DR JOHNSON NOTIFIED FOR CONSULTATION
--- NOTE | 2016-12-04 15:12 | NUR ---
PT RESTING WITH EYES CLOSED, RESP QUIET, NO DISTRESS NOTED, LEFT UNDISTURBED AT THIS TIME, S/O AT BEDSIDE
[2016-12-04 16:15] VITALS: BP 178/79
--- NOTE | 2016-12-04 16:15 | NUR ---
PT AWAKE, VISITING WITH S/O, VS OBTAINED, PT REQUESTED AND SERVED DIET COLA, PT DENIES FURTHER NEEDS OR PAIN AT THIS TIME
--- NOTE | 2016-12-04 17:24 | NUR ---
PT FINISHED EATING DINNER, DINNER TRAY REMOVED, PUMP CLEARED, PT REPORTS VOIDING ONCE TODAY, ENC PT TO DRINK MORE FLUIDS AND VOID AT LEAST EVERY 2-3 HOURS, PT VERBALIZES UNDERSTANDING, REQUESTED REGULAR COLA, BUT INFORMED PT SINCE SHE IS DIABETIC, I HAD TO SERVE DIET TO HER, PT VERBALIZES UNDERSTANDING, DENIES FURTHER NEEDS, S/O AT BEDSIDE
--- NOTE | 2016-12-04 19:00 | NUR ---
SHIFT REPORT TO GABRIEL MALIN RN
[2016-12-04 19:43] VITALS: BP 139/67
--- NOTE | 2016-12-04 19:43 | NUR ---
PT RECEIVED LYING IN BED RESTING QUIETLY WITH EYES CLOSED AT THIS TIME. AROUSED EASILY. VSS. IV NOTED TO RIGHT A/C INFUSING NS @ 50 CC/HR. PATENT. DRESSING CDI. HEART RRR PT 72 SINUS RHYTHM WITH PVCS ON TELEMETRY AT THIS TIME. LUNG SOUNDS CLEAR BILATERALLY. BOWEL SOUNDS ACTIVE X4 QUADRENTS. PT STATES SHE HAS A HEADACHE AT THIS TIME THAT SHE RATES 10/10. PEDAL PULSES EQUAL BILATERALLY. PT REQUESTS MEDICATION FOR HEADACHE AT THIS TIME. DENIES OTHER NEEDS. BED LOW. PHONE AND CALL LIGHT IN REACH. SRX2.
--- NOTE | 2016-12-04 20:53 | NUR ---
SPOKE WITH DR. LEDBETTER CONCERNING PT HOME MEDS AND PT WANTING MEDICATION FOR HEADACHE AT THIS TIME. DR. LEDBETTER STATES SHE WILL RESTART HOME MEDS AT THIS TIME AND PUT IN MEDICATION FOR PAIN.
--- NOTE | 2016-12-04 21:12 | NUR ---
PT RESTING QUIETLY AT THIS TIME WITH EYES CLOSED. AROUSED EASILY. PT FSBS 93 AT THIS TIME. PT DENIES NEEDS. BED LOW. PHONE AND CALL LIGHT IN REACH. SRX2.
--- NOTE | 2016-12-04 22:24 | NUR ---
NORCO PO PER ORDER GIVEN AT THIS TIME FOR PAIN PT RATES 10/10. STATES IT IS A BAD HEADACHE. PT DENIES OTHER NEEDS. BED LOW. PHONE AND CALL LIGHT IN REACH. SRX2.
[2016-12-04 23:27] VITALS: BP 147/83
--- NOTE | 2016-12-04 23:27 | NUR ---
PT SITTING UP IN BED WATCHING TV AT THIS TIME. PM MEDS GIVEN. PT GIVEN SANDWICH TRAY AT THIS TIME AND REQUESTS ICE WATER. DENIES OTHER NEEDS. VSS. BED IN LOWEST. PHONE AND CALL LIGHT IN REACH. SRX2.
--- NOTE | 2016-12-05 00:39 | NUR ---
PT RESTING QUIETLY AT THIS TIME WITH EYES CLOSED. RESPIRATIONS EVEN, NON-LABORED. NO ACUTE DISTRESS NOTED AT THIS TIME. BED IN LOWEST. PHONE AND CALL LIGHT IN REACH. SRX2.
--- NOTE | 2016-12-05 02:05 | NUR ---
PT RESTING QUIETLY AT THIS TIME WITH EYES CLOSED. RESPIRATIONS EVEN, NON-LABORED. NO ACUTE DISTRESS NOTED AT THIS TIME. BED LOW. PHONE AND CALL LIGHT IN REACH. SRX2.
[2016-12-05 03:41] VITALS: BP 122/70
--- NOTE | 2016-12-05 03:41 | NUR ---
PT RESTING QUIETLY AT THIS TIME WITH EYES CLOSED. AROUSED EASILY. VSS. PT DENIES NEEDS AT THIS TIME. BED LOW. PHONE AND CALL LIGHT IN REACH. SRX2.
--- NOTE | 2016-12-05 05:55 | NUR ---
PT REEL SLITTER LIGHT AT THIS TIME. C/O DIAPHORESIS. FSBS AT THIS TIME IS 64. GAVE PT A COKE TO DRINK AND PEANUT BUTTER WITH JOHN [employer]ERS. WILL CONTINUE TO MONITOR.
--- NOTE | 2016-12-05 06:03 | NUR ---
RECHECKED PT BLOOD SUGAR AT THIS TIME. FSBS 79.
--- NOTE | 2016-12-05 06:14 | NUR ---
RECHECKED PT BLOOD SUGAR AT THIS TIME. FSBS 128.
--- NOTE | 2016-12-05 06:42 | NUR ---
PT RESTING QUIETLY AT THIS TIME WATCHING TV. STATES SHE FEELS MUCH BETTER. DENIES NEEDS AT THIS TIME. BED LOW. PHONE AND CALL LIGHT IN REACH. SRX2.
--- NOTE | 2016-12-05 07:58 | NUR ---
CHERELLE WAS RESTING ON HER RIGHT SIDE WITH DEEP EVEN RESPIRATIONS. TV ON AND LIGHTS OUT. BREAKFAST IS ON THE BEDSIDE TABLE. SHE AWOKE EASILY TO VOICE. STATED THAT SHE FORGOT HER TRAY IS HERE. ASSISTED WITH POSITION FOR COMFORT/ EATING.
[2016-12-05 08:00] VITALS: BP 159/71
[2016-12-05 10:10] LABS: ANION GAP 12.9 mmol/L (8-16); CALCIUM 8.3 mg/dL (8.5-10.1); CARBON DIOXIDE 25.1 mmol/L (21.0-32.0); CREATININE - SERUM 1.2 mg/dL (0.6-1.3)
--- NOTE | 2016-12-05 10:30 | NUR ---
MALE VISITOR AT [facility] BEDSIDE. SHE DENIES NEEDS.
[2016-12-05 10:39] LABS: BASOPHILS 0.2 % (0.0-2.0); HEMATOCRIT 36.3 % (36.0-48.0); IMMATURE GRANULOCYTES 0.1 % (0-5); LYMPHOCYTES 23.7 % (15-50); MCH 30.5 pg (26.0-34.0); MCHC 33.1 g/dL (31.0-37.0); MCV 92.4 fL (80.0-100.0); MEAN PLATELET VOLUME 11.6 fL (7.4-10.4); MONOCYTES 8.1 % (2-11); NEUTROPHILS 65.9 % (40-80); PLATELET COUNT 233 10x3/uL (130-400); RBC 3.93 10x6/uL (4.00-5.40); RDW 14.7 % (11.5-14.5); WBC 8.5 10x3/uL (4.8-10.8)
--- NOTE | 2016-12-05 12:15 | NUR ---
DISCUSSED THE PLANNED PROCEED AND BLOOD CONSENT WITH THE PATIENT. SHE STATES HTAT SHE HAS HAD AN ANGIOGRAM BEFORE AND IS FAMILIAR WITH PRE AND POST PROCEDURE CARE. SHE HAS REMOVED HER JEWELRY AND WILL PLACE IT IN HER PURSE. SHE DECLINES OFFER TO PLACE THESE THINGS IN THE SAFE. INFORMED HER OF NEED TO REMOVE UNDERWEAR WHEN SHE GOES TO THE RESTROOM NEXT. SHE VOICED UNDERSTANDING AND IS CALLING FAMILY ON HER PERSONAL PHONE. SHE EXPECTS SOME TO COME UP FOR A VISIT.
--- NOTE | 2016-12-05 12:30 | NUR ---
ASSISTED OOB. TO THE RESTROOM. DENIED OTHER NEEDS.
--- NOTE | 2016-12-05 12:53 | NUR ---
PATIENT RESTING QUIETLY WITH EYES CLOSED, HOB UP 45 DEGREES.
--- NOTE | 2016-12-05 12:59 | NUR ---
PATIENT GIVEN HER MORNING MEDICATONS. HELD HER LANTUS SINCE SHE WILL BE NPO THROUGH LUNCH. SHE VOICES UNDERSTANDING. SHE WAS ASLEEP WHEN I ENTERED BUT AWOKE EASILY. SHE FELL BACK TO SLEEP WHILE I PREPARED HER MEDICATIONS AND COVERED HER HEAD WHEN I LEFT.
--- NOTE | 2016-12-05 13:20 | NUR ---
PATIENT PREOPED FOR HEART CATH. MALE VISITOR AT THE [facility]. WE DO NOT HAVE TOPICAL NOTRO ON THIS UNIT. WILL REPORT TO TRANSPORTER.
--- NOTE | 2016-12-05 14:02 | NUR ---
patient off the unit to laborer wood preserving plant. transporter aware of patient not having nitro to wrist.
--- NOTE | 2016-12-05 15:20 | NUR ---
RECEIVED REPORT THAT SHE WILL NOT BE RETURNING TO THIS UNIT.
--- NOTE | 2016-12-05 15:50 | NUR ---
1515-right groin-cdi, no hematoma or bleeding noted at site.
--- NOTE | 2016-12-05 15:55 | NUR ---
1545-NO CHANGES, RIGHT GROIN CDI, DENIES CHEST PAIN
--- NOTE | 2016-12-05 18:11 | NUR ---
181-UP TO REST ROOM TO VOID- NO DIFFICULTY, FRIEND AT SIDE, RIGHT GROIN-CDI AFTER, NO HEMATOMA OR BLEEDING NOTED CONTINUES SOFT TO TOUCH.
--- NOTE | 2016-12-05 19:01 | NUR ---
1850-IV D'C WITH CATH TIP INTACT, WRITTEN AND VERBAL INSTRUCTIONS GIVEN TO PT, DENIES CHEST PAIN, RIGHT GROIN- NO HEMATOMA OR BLEEDING NOTED, D'C VIA WC TO FRONT DOOR OF HOSPITAL WITH FRIEND.
== END 2016-12-05 19:00 | disposition home or self-care (01) ==
LOC: D.ER 02:56 → OBSVTIME 05:49 → D.WS 05:49
PROVIDERS: Emergency Medicine; Internal Medicine Interventional Cardiology; ADMIT Emergency Medicine
DX: I25.119 Atherosclerotic heart disease of native coronary artery with unspecified angina pectoris (principal); Z95.5 Presence of coronary angioplasty implant and graft; I10 Essential (primary) hypertension; E11.9 Type 2 diabetes mellitus without complications; Z79.4 Long term (current) use of insulin; Z86.73 Personal history of transient ischemic attack (TIA), and cerebral infarction without residual deficits; E78.5 Hyperlipidemia, unspecified; I73.9 Peripheral vascular disease, unspecified; Z72.0 Tobacco use

== ENCOUNTER 2016-12-15 23:46 | Observation (INO) | payer MEDICAID ==
[2016-12-16 00:24] LABS: BASOPHILS 0.2 % (0-2); EOSINOPHILS 2.5 % (0-7); HEMATOCRIT 37.4 % (36.0-48.0); HEMOGLOBIN 12.3 g/dL (12-16); IMMATURE GRANULOCYTES 0.2 % (0-5); LYMPHOCYTES 31.2 % (15-50); MCH 30.4 pg (26.0-34.0); MCHC 32.9 g/dL (31.0-37.0); MCV 92.6 fL (80.0-100.0); MEAN PLATELET VOLUME 10.7 fL (7.4-10.4); MONOCYTES 6.3 % (2-11); NEUTROPHILS 59.6 % (40-80); PLATELET COUNT 248 10x3/uL (130-400); RBC 4.04 10x6/uL (4.00-5.40); RDW 14.4 % (11.5-14.5); WBC 11.8 10x3/uL (4.8-10.8)
[2016-12-16 00:35] LABS: ALBUMIN 3.4 g/dL (3.4-5.0); ALKALINE PHOSPHATASE 110 U/L (46-116); ALT (SGPT) 23 U/L (10-68); BILIRUBIN - TOTAL 0.15 mg/dL (0.2-1.3); CALC OSMOLALITY 289 mosm/kg (275-300); CALCIUM 8.6 mg/dL (8.5-10.1); CARBON DIOXIDE 28.9 mmol/L (21.0-32.0); CHLORIDE - SERUM 104 mmol/L (98-107); CREATININE - SERUM 1.3 mg/dL (0.6-1.3); GLUCOSE 238 mg/dL (74-106); POTASSIUM - SERUM 3.8 mmol/L (3.5-5.1); PROTEIN - SERUM 7.6 g/dL (6.4-8.2); SODIUM 139 mmol/L (136-145); UREA NITROGEN 23 mg/dL (7-18); eGFR NON AFRICAN AMERICAN 45 mL/min (90-120)
[2016-12-16 00:47] LABS: CKMB 0.6 U/L (0.0-3.6); CREATINE KINASE 59 UL (21-215)
[2016-12-16 00:49] LABS: TROPONIN-I < 0.017 ng/mL (0.000-0.060)
[2016-12-16 06:53] LABS: CREATINE KINASE 48 UL (21-215); TROPONIN-I < 0.017 ng/mL (0.000-0.060)
== END 2016-12-16 14:55 | disposition home or self-care (01) ==
LOC: D.ER 23:46 → D.M2 12-16 02:32
PROVIDERS: Emergency Medicine; ADMIT Internal Medicine Interventional Cardiology
DX: I25.110 Atherosclerotic heart disease of native coronary artery with unstable angina pectoris (principal); Z95.5 Presence of coronary angioplasty implant and graft; I73.9 Peripheral vascular disease, unspecified; T82.856A Stenosis of peripheral vascular stent, initial encounter; Y83.8 Other surgical procedures as the cause of abnormal reaction of the patient, or of later complication, without mention of misadventure at the time of the procedure; I10 Essential (primary) hypertension; E78.5 Hyperlipidemia, unspecified; E11.9 Type 2 diabetes mellitus without complications; Z79.4 Long term (current) use of insulin

== ENCOUNTER 2016-12-18 00:11 | Emergency (ER) | payer MEDICAID ==
[2016-12-16 13:22] VITALS: BMI 25.6
== END 2016-12-18 01:35 | disposition home or self-care (01) ==
LOC: D.ER 00:11
DX: E11.40 Type 2 diabetes mellitus with diabetic neuropathy, unspecified (principal); Z79.4 Long term (current) use of insulin; I10 Essential (primary) hypertension; I73.9 Peripheral vascular disease, unspecified; Z86.73 Personal history of transient ischemic attack (TIA), and cerebral infarction without residual deficits

== ENCOUNTER 2016-12-21 07:24 | Outpatient (CLI) | payer MEDICAID ==
[~2016-12-21] VITALS: Ht 157.5 cm; Wt 64.5 kg
--- NOTE | ~2016-12-21 | OP ---
PATIENT NAME: TJ CRAIG MEDICAL RECORD: [id number] :60 LOCATION:D.CAT ADMISSION DATE: SURGEON: TRAE FORD MD DATE OF OPERATION: 12/21/2016 PROCEDURES: 1. PTCA stent LAD. 2. Selective coronary angiography. INDICATIONS: Angina and coronary artery disease. PROCEDURE IN DETAIL: After informed consent was obtained and after detailed explanation of risks, benefits as well as alternative therapies, the patient elected to proceed with angiogram and angioplasty. The right femoral area was prepped and draped in normal sterile fashion. The right femoral artery was cannulated via modified Seldinger technique with placement of 6-Guatemalan sheath. All catheters exchanged through this sheath. FINDINGS: The left anterior descending has a long area of 70%-80% stenosis proximally. This was addressed with a 3.0 x 38 mm Resolute stent. Result was 0% residual stenosis. OVERALL IMPRESSION: Successful percutaneous transluminal coronary angioplasty stent of the left anterior descending going from 70% to 80% initial stenosis to 0% residual. TRANSINT:[id number] Voice Confirmation ID: [id number] DOCUMENT ID: [id number] TRAE FORD MD CC: [id number] DICTATION DATE: 12/21/16 1141 REGIONAL TRAINER: 12/21/16 1537 [facility] [address] [place] [address]
--- NOTE | ~2016-12-21 | OP ---
PATIENT NAME: TJ CRAIG MEDICAL RECORD: [id number] :60 LOCATION:D.CAT ADMISSION DATE: SURGEON: TRAE FORD MD DATE OF OPERATION: 12/21/2016 PROCEDURES: 1. Stent placement left SFA. 2. TRANSITION ASSISTANT left SFA. 3. Unilateral extremity angiography. INDICATIONS: Claudication and peripheral vascular disease. PROCEDURE IN DETAIL: After informed consent was obtained and after detailed explanation of risks, benefits as well as alternative therapies, the patient elected to proceed with angiogram and angioplasty. The right femoral area was prepped and draped in normal sterile fashion. The right femoral artery was cannulated via modified Seldinger technique with placement of 6-Tristanian [id number] sheath. All catheters exchanged through this sheath. FINDINGS: The left SFA has a 99% stenosis in the mid vessel. This was addressed with a 5.0 balloon yielding suboptimal result with severe intimal dissection. Stenting was undertaken with a 6 x 40 SMART stent. Result was 0% residual stenosis, no further dissection, sabianism of brisk distal flow. IMPRESSION: Successful percutaneous transluminal angioplasty stent of the left superficial femoral artery going from 99% initial stenosis to 0% residual. TRANSINT:[id number] Voice Confirmation ID: [id number] DOCUMENT ID: [id number] TRAE FORD MD CC: [id number] DICTATION DATE: 12/21/16 1141 DESTATICIZER FEEDER: 12/21/16 1537 [facility] [address] [place] [id number]
--- NOTE | ~2016-12-21 | HEMODYNAMI ---
PATIENT:TJ CRAIG MEDICAL RECORD: [id number] : 60 LOCATION:D.CAT ADMISSION DATE: 12/21/16 Generatedon:12/21/201611:47 Patient name: TJ CRAIG Patient #: [id number] : 1960 Date of study: 12/21/2016 Page: Of Hemodynamic Procedure Report Patient Data Patient Demographics Procedure consent was obtained First Name: TJ Gender: Female Last Name: KIARA : 1960 Patient #: [id number] Age: 56 year(s) Race: Other SSN: [id number] Additional ID: [id number] Contact details [address]: [address] [place] [address] State: [place] City: [place] Zip code: [address] Past Medical History Allergies Allergen Reaction Date Comments Reported Other allergy 12/21/2016 steroids Admission Admission Data Admission Date: 12/21/2016 Admission Time: 7:24 Arrival Date: 12/21/2016 Arrival Time: 10:00 Admit Source: Other Insurance Payor: Private health insurance Height (in.): 62 BSA: 1.65 (m2) Height (cm.): 157.48 BMI: 25.97 (kg/m2) Weight (lbs.): 142 Weight (kg.): 64.41 Lab Results Lab Result Date: 12/16/2016 Lab Result Time: 0:00 Biochemistry Name Units Result Min Max CK-MB ng/ml 0.6 --(*---)-- 0 3.6 Creatinine mg/dl 1.3 --(---*)-- 0.6 1.3 Creatinine l 48 --(*---)-- 21 215 Kinase Troponin l ng/ml 0.017 --(-*--)-- 0 0.06 CBC Name Units Result Min Max Hemoglobin g/dl 12.3 *-(----)-- 13.5 17.5 Procedure Procedure Types Cath Procedure PCI Procedure Coronary Stent Initial Miscellaneous Procedures Peripheral Cath Diagnostic Procedure Abd/Extremity Extremities Left Lower Ext Arterio Peripheral vascular Intervention Stent Stent-Fem/Popw/plasty Procedure Description Procedure Date Procedure Date: 12/21/2016 Procedure Start Time: 11:11 Procedure End Time: 11:43 Procedure Staff Name Function Pelon Sy MD Performing Physician Brionna Rodriguez RT Scrub Carolina Bassett RN Nurse Seble Jefferson RT Monitor Procedure Data Cath Procedure Fluoroscopy Diagnostic fluoroscopy Total fluoroscopy Time: 6.1 time: 6.1 min min Diagnostic fluoroscopy Total fluoroscopy dose: 323 dose: 323 mGy mGy Contrast Material Contrast Material Type Amount (ml) Isovue 300 91 Entry Location Entry Primary Successful Side Size Upsize Upsize Entry Closure Succes sful Closure Location (Fr) 1 (Fr) 2 (Fr) Remarks Device Remarks Femoral Right 6 Fr 6 Fr Exoseal artery Short Long Estimated blood loss: 10 ml Diagnostic catheters Device Type Used For End Catheter Placement Diagnostic 5Fr IMT Procedure Catheter Procedure Complications No complications Procedure Medications Medication Administration Route Dosage Oxygen NC 2 l/min Lidocaine 2% added to field 20 Heparin Flush Bag added to field 2 bags (1000units/500ml NS) 0.9% NaCl I.V. 100 ml/hr Versed I.V. 2 mg Fentanyl I.V. 100 mcg Heparin Bolus I.V. 4000 units Fentanyl I.V. 100 mcg Plavix P.O. 75 mg Hemodynamics Rest BSA: 1.65 (m2) HGB: 12.3 (g/dl) O2 Consumption: Estimated: 162.68 (ml/min) O2 Co nsumption indexed: Estimated:98.59 (ml/min/m) Heart Rate: 77 (bpm) Snapshots Pre Cath Intra NCS Post Cath Vital Signs Time Heart Resp SPO2 NIBP (mmHg) Rhythm Pain Sedation Rate (ipm) (%) Status Level (bpm) 10:43:26 76 19 100 166/77(113) NSR 0 (11) 10(A) , No pain 10:47:53 73 16 100 171/65(113) NSR 0 (11) 10(A) , No pain 10:52:13 74 19 100 152/65(106) NSR 0 (11) 10(A) , No pain 10:56:31 76 16 100 149/70(108) NSR 0 (11) 10(A) , No pain 11:00:43 78 17 100 129/75(103) NSR 0 (11) 10(A) , No pain 11:04:57 77 18 100 132/71(106) NSR 0 (11) 10(A) , No pain 11:10:06 76 17 100 124/70(112) NSR 0 (11) 10(A) , No pain 11:15:05 82 17 98 Measuring NSR 0 (11) 9(A) , No pain 11:21:26 88 18 98 178/76(0) NSR 0 (11) 9(A) , No pain 11:25:21 89 15 100 162/79(119) NSR 0 (11) 9(A) , No pain 11:29:44 87 16 100 178/86(139) NSR 0 (11) 9(A) , No pain 11:34:12 88 17 100 194/87(137) NSR 0 (11) 9(A) , No pain 11:39:44 89 19 100 212/92(143) NSR 0 (11) 10(A) , No pain Medications Time Medication Route Dose Verified Delivered Reason Notes Effectiveness by by 10:13:19 0.9% NaCl I.V. 100 Pelon Buffie Per physician ml/hr Yossi Bassett RN 10:44:00 Oxygen NC 2 Pelon Buffie used for l/min Yossi Bassett RN procedure 10:44:06 Lidocaine 2% added 20ml Pelon Buffie used for to vial Yossi Bassett RN procedure field 10:44:11 Heparin Flush added 2 Pelon Buffie used for Bag to bags Yossi Bassett RN procedure (1000units/500ml field NS) 11:12:26 Versed I.V. 2 mg Pelon Buffie for sedation Yossi Bassett RN 11:12:32 Fentanyl I.V. 100 Pelon Buffie for sedation mcg Yossi Bassett RN 11:15:30 Heparin Bolus I.V. 4000 Pelon Buffie for units Yossi Bassett RN anticoagulation 11:22:28 Fentanyl I.V. 100 Pelon Buffie for sedation mcg Yossi Bassett RN 11:45:48 Plavix P.O. 75 mg Pelon Buffie for Yossi Bassett RN antiplatelet therapy Procedure Log Time Note 10:13:19 0.9% NaCl 100 ml/hr I.V. was administered by Carolina Bassett RN; Per physician; 10:20:09 Carolina Bassett RN sent for patient. Start room use. 10:22:38 Informed consent obtained and on chart 10:25:25 Diagnostic Cath Status : Elective 10:30:24 Admit Source: Other 10:30:26 Arrival Date: 12/21/2016 10:00:00 AM 10:30:58 Insurance Payor : Private health insurance 10:35:16 Time tracking: Regular hours 10:35:19 Plan of Care:Hemodynamics will remain stable., Cardiac rhythm will remain stable., Comfort level will be maintained., Respiratory function will remain adequate., Patient/ family verbilizes understanding of procedure., Procedure tolerated without complication., Recovers from procedure without complications.. 10:35:28 Patient received from Pre/Post Procedure Room to [facility] 2 Alert and oriented. Tansferred to table in Supine position. 10:35:29 Warm blankets applied, and kingston hugger turned on for patient comfort. 10:35:29 Correct patient and procedure confirmed by team. 10:35:30 ECG and BP/O2 sat monitors applied to patient. 10:42:06 Vital chart was started 10:42:07 Baseline sample Acquired. 10:42:10 Rhythm: sinus rhythm 10:42:11 Full Disclosure recording started 10:42:15 H&P Date Dictated: 12/21/2016 Within 30 days and on chart., H&P Addendum completed by physician on day of procedure. (MUST COMPLETE FOR ALL OUTPATIENTS). 10:42:17 Pre-procedure instructions explained to patient. 10:42:17 Pre-op teaching completed and patient verbalized understanding. 10:42:19 Family in waiting room. 10:42:20 Patient NPO since Midnight. 10:43:55 Patient allergic to Other allergysteroids 10:43:59 Is the patient allergic to Iodine/contrast media? No. 10:44:00 Oxygen 2 l/min NC was administered by Carolina Bassett RN; used for procedure; 10:44:06 Lidocaine 2% 20ml vial added to field was administered by Carolina Bassett RN; used for procedure; 10:44:11 Heparin Flush Bag (1000units/500ml NS) 2 bags added to field was administered by Carolina Bassett RN; used for procedure; 10:44:49 Was the patient premedicated? Yes 10:44:52 Is patient on blood thinner?Yes 10:44:58 ACC The patient was administered the following blood thiners within the last 24 hours: ACCPlavix 10:45:00 Patient diabetic? Yes. 10:45:02 If diabetic: On Metformin? Yes 10:45:05 If on Metformin: Last Dose? 12/20/2016 10:45:10 Snore? No 10:45:12 Sleep apnea? No 10:45:15 Sticks out tongue? Yes 10:45:25 Patient pain scale 0/10 ?. 10:45:32 IV patent on arrival in left forearm with 0.9% NaCl at [facility]. 10:45:51 Lab results completed and on chart. 10:45:58 Bilateral groins area was prepped with chlora-prep and draped in sterile fashion 10:45:59 Alarms reviewed by R. N. 10:45:59 Sharps counted by scrub and verified by R.N. 10:46:01 Physician paged 10:47:22 Use device set Femoral PCI 10:47:25 Acist Syringe opened to sterile field. 10:47:26 Acist Hand Control opened to sterile field. 10:47:26 Bag Decanter opened to sterile field. 10:47:27 Medline Cath Pack opened to sterile field. 10:47:27 Terumo 6Fr [place] Sheath opened to sterile field. 10:47:28 St Remy 260cm J .035 wire opened to sterile field. 10:47:28 Merit BasixCompak Inflation Kit opened to sterile field. 10:47:29 Acist Manifold opened to sterile field. 10:47:29 Tegaderm 4 x 4 opened to sterile field. 10:54:09 Dentures? No ? 10:55:55 Patient Height : 157.48 cm 10:56:11 Patient Weight : 64.41 kg 11:11:03 Physician arrived 11:11:03 --------ALL STOP TIME OUT------ 11:11:04 Final Timeout: patient, procedure, and site verified with staff and physician. All members of the team are in agreement. 11:11:08 Bilateral groins site verified by team. 11:11:14 Sedation plan: IV Moderate Sedation Versed, Fentanyl 11:11:22 Procedure started. 11:11:42 Local anesthetic to right femoral artery with Lidocaine 2% by Pelon Sy MD.INITIAL ACCESS ONLY 11:11:53 A 6 Fr Short sheath was inserted into the Right Femoral artery 11:12:26 Versed 2 mg I.V. was administered by Carolina Bassett RN; for sedation; 11:12:32 Fentanyl 100 mcg I.V. was administered by Carolina Bassett RN; for sedation; 11:15:30 Heparin Bolus 4000 units I.V. was administered by Carolina Bassett RN; for anticoagulation; 11:15:49 6 Fr XBLAD 3.5 guide catheter was inserted over the wire 11:16:03 Cordis 6FR XBLAD 3.5 guide catheter opened to sterile field. 11:16:31 Zamudio Whisper J 300cm 0.014 guide wire opened to sterile field. 11:16:49 Whisper wire advanced. 11:18:34 Inflation Number: 1 A J2D BioMedicaltronic Resolute 3.0 X 38 stent was prepped and advanced across the Mid LAD. The stent was deployed at 17 LEA for 0:24 (min:sec). 11:18:45 Stent catheter was removed intact over wire. 11:18:46 Wire removed. 11:18:46 Guide catheter removed. 11:20:00 A Diagnostic 5Fr IMT Catheter was advanced over the wire and used for Procedure.advanced over glide wire. 11:20:11 A 5 FrFr IM catheter was inserted over the wire. 11:21:09 IMT removed 11:21:13 Terumo ANGLE 260cm glide wire opened to sterile field. 11:21:14 Terumo TORQUE DEVICE PLASTIC .038 opened to sterile field. 11:21:17 Terumo 6Fr [place] Destination Sheath opened to sterile field. 11:21:53 Sheath upsized to a 6 Fr Long. 11:22:28 Fentanyl 100 mcg I.V. was administered by Carolina Bassett RN; for sedation; 11:23:09 [place] Sci Choice PT Extra Support J 300cm .014 gu opened to sterile field. 11:29:49 PT extra support across lesion. 11:30:43 Left leg runoff performed. 11:32:19 Inflation number: 1 A Saber 5.0 X 4 X 150 balloon was prepped and advanced across the Distal Femoral, Left, then inflated to 13 LEA for 0:14 (min:sec). 11:34:00 Balloon removed 11:35:23 Cordis SMART 6 X 40 X 120 stent was deployed across Distal Femoral, Left . 11:36:57 Cordis 6Fr Exoseal opened to sterile field. 11:37:29 stent removed 11:37:44 Sheath removed intact; hemostasis achieved with Exoseal to the Right Femoral artery. 11:37:52 Procedure ended.(Physican Out) 11:39:43 Fluoroscopy time 06.10 minutes. 11:39:51 Fluoroscopy dose: 323 mGy 11:39:51 Flurop Dose total: 323 11:39:56 Contrast amount:Isovue 300 91ml. 11:39:58 Sharps counted by scrub and verified by R.N. 11:40:00 Insertion/operative site no bleeding no hematoma. 11:40:07 Post right femoral artery:stable 11:40:09 Post Procedure Pulses reassessed and unchanged 11:40:13 Post procedure rhythm: unchanged. 11:40:38 Estimated blood loss: 10 ml 11:40:40 Post procedure instruction explained to patient.Patient verbalizes understanding. 11:41:44 Procedure type changed to Cath procedure, PCI procedure, Coronary Stent Initial, Miscellaneous Procedures, Peripheral Cath Diagnostic Procedure, Abd/Extremity, Extremities, Left Lower Ext Arterio, Peripheral vascular Intervention, Stent, Stent-Fem/Popw/plasty 11:41:49 Procedure and supply charges have been captured, reviewed, submitted and are correct. 11:42:51 Procedure Complication : No complications 11:42:53 Vital chart was stopped 11:42:54 See physician's report for complete and final results. 11:42:56 Report given to Pre/Post Procedure Room. 11:43:00 Patient transfered to Pre/Post Procedure Room with Stretcher. 11:43:02 Procedure ended. 11:43:02 Full Disclosure recording stopped 11:43:07 End room use (Document Last) 11:45:48 Plavix 75 mg P.O. was administered by Carolina Bassett RN; for antiplatelet therapy; Intervention Summary Intervention Notes Time ActionType Lesion and Equipment Action# Pressure Duration Attributes Used 11:18:34 Place stent Mid LAD Medtronic 1 17 00:24 Resolute 3.0 X 38 stent 11:32:19 Inflate Distal Saber 5.0 1 13 00:15 balloon Femoral, X 4 X 150 Left balloon 11:35:23 Deploy self Distal Cordis 1 15 expanding Femoral, SMART 6 X stent Left 40 X 120 stent Device Usage Item Name Manufacture Quantity Catalog Number Hospital Part Current Minim al Lot# / Charge Number Stock Stock Serial# Code Acist Acist 1 [id number] 319483 [id number] 20 Syringe Medical Systems Inc Acist Hand Acist 1 10373 019015 283249 134694 5 Control Medical Systems Inc Bag Microtek 1 2002S 443643 46534 373569 5 DecEmtrics Medical Inc. Medline Cardinal 1 [id number] 213874 60617 296766 5 Cath Pack Health Terumo 6Fr Terumo 1 [id number] 039722 300418 453514 [address] [place] [address] Remy 1 456622 596377 472605 282852 30 260cm J .035 wire Merit Merit 1 [id number] 108944 369252 353214 15 BasixSilver Tail Systemsk Medical Inflation Kit Acist Acist 1 15281 798130 924746 891851 5 Wise[employer] Inc Tegaderm 4 3M 1 1626W 602837 338263 907391 5 x 4 Cordis 6FR Cardinal 1 [id number] 757096 039008 821122 10 XBLAD 3.5 Health guide catheter Zamudio Zamudio 1 [id number] 431849 415590 960037 5 Whisper J Vascular 300cm 0.014 guide wire Medtronic Medtronic 1 [id number] 145153 734713 0 [id number] Resolute 3.0 X 38 stent Diagnostic [place] 1 [id number] 249427 237156 45777 5 5Fr IMT Scientific Catheter Terumo Terumo 1 [id number] 729326 315479 180005 5 ANGLE 260cm glide wire Terumo [place] 1 TD01 473687 460222 043667 5 TORQUE Scientific DEVICE PLASTIC .038 Terumo 6Fr Terumo 1 [id number] 248071 92442 475602 5 [place] Destination Sheath [place] Sci [place] 1 [id number] 914223 279516 994383 5 Choice PT Scientific Extra Support J 300cm .014 gu Saber 5.0 X Cardinal 1 [id number] 611519 280482 5 4 X 150 Health balloon Cordis Cardinal 1 [id number] 360337 841526 415440 0 [id number] SMART 6 X Health 40 X 120 stent Cordis 6Fr Cardinal 1 [id number] 383762 595197 252403 10 [facility] Signature Audit [place] Stage Time Signature Unsigned Intra-Procedure 12/21/2016 Seble Jefferson 11:47:02 AM RT(R) Signatures Monitor : Seble Jefferson Signature : RT Date : Time : [place] [id number] [place] [address]
--- NOTE | ~2016-12-21 | HP ---
PATIENT: TJ CRAIG MEDICAL RECORD: [id number] ACCOUNT: [id number] LOCATION:[facility] : 60 ADMISSION DATE: 12/21/16 HISTORY AND PHYSICAL EXAMINATION ADMITTING DIAGNOSES: 1. Angina. 2. Coronary artery disease. 3. Recent percutaneous transluminal coronary angioplasty stent of the right coronary artery with concomitant disease in left anterior descending. 4. Claudication. 5. Peripheral vascular disease. HISTORY OF PRESENT ILLNESS: Mrs. Craig presents with continued anginal symptomatology. She has significant disease of the LAD. She as well has claudication in both legs. She has significant disease in both legs. She is now being brought back for PTCA stent of the LAD and left SFA. PHYSICAL EXAMINATION: GENERAL APPEARANCE: Well-nourished, well-developed, appears stated age. Level of distress, comfortable. PSYCHIATRIC: Mental status, alert, normal affect. Orientation, oriented to time, place and person. EYES: Lids and conjunctiva, noninjected. No discharge, no pallor. ENT: Lips, teeth, gums, normal dentition. Oropharynx, no cyanosis, no pallor. NECK: Carotid arteries, bilateral normal upstroke, no bruits, no thrills. JUGULAR VEINS: No jugular venous pressure or distention. CERVICAL LYMPH NODES: Nontender, nonenlarged. THYROID: Not enlarged. Nontender. No nodules. LUNGS: Respiratory effort, unlabored. CHEST: Normal curvature. No thoracic deformity. No chest wall tenderness. Percussion, resonant. Auscultation, clear. No wheezes, no rales, no rhonchi. CARDIOVASCULAR: Precordial exam, nondisplaced. No heaves or pericardial thrills. Rate and rhythm, regular. Heart sounds, normal S1, normal S2. No S3, no gallop, no rub. Systolic murmur, not heard. Diastolic murmur, not heard. EXTREMITIES: No cyanosis, no edema. Peripheral pulses, full and equal in all extremities, except as noted. No bruits appreciated. ABDOMEN: Soft, nondistended. Normal aorta. No bruit. Nontender. No masses. Liver, nontender, no hepatomegaly. Spleen, nontender, no splenomegaly. MUSCULOSKELETAL: No joint tenderness. No joint swelling. No erythema. NEUROLOGICAL: Normal gait, normal strength, normal tone. SKIN: Warm and dry. REVIEW OF SYSTEMS: The patient reports easy bruising but reports no swollen glands. The patient reports no fever, no night sweats, no significant weight gain, no significant weight loss. No significant exercise tolerance. The patient reports no dry eyes, no irritation, no vision change. Patient reports no difficulty hearing and no ear pain. Patient reports no frequent nose bleeds or nose and sinus problems. Patient reports on arm pain on exertion. No shortness of breath while lying down. No history of heart murmur. Patient reports no cough, no wheezing or coughing up blood. Patient reports no abdominal pain, no vomiting. Normal appetite. No diarrhea and not vomiting blood. No nausea and no constipation. Patient reports no incontinence. No difficulty urinating. No hematuria. No increased frequency. Patient reports no muscle aches. No weakness, no arthralgias, no back pain. No swelling of the HISTORY AND PHYSICAL [id number] CRAIG,TJ extremities. Patient reports no abnormal mole, no jaundice, no rashes. Reports no loss of consciousness. No weakness and no numbness. No seizures, dizziness, or headaches. The patient reports no depression, no sleep disturbance, feeling safe in a relationship and no alcohol abuse. Patient reports on fatigue. Reports no runny nose or sinus pressure. No itching, no hives, and no frequent sneezing. OVERALL IMPRESSION: Chest pain compatible with angina, claudication, probable peripheral vascular disease. We will proceed with transcatheter revascularization of the LAD and left SFA. TRANSINT:[id number] Voice Confirmation ID: [id number] DOCUMENT ID: [id number] TRAE FORD MD CC: [id number] DICTATION DATE: 12/21/16 114 PROCUREMENT SPECIALIST: 12/21/16 1222 [facility] [address] [place] [address]
[2016-12-21] MEDS ORDERED: NEURONTIN 300300 MG PO (08:19)
[2016-12-21 08:22] VITALS: BP 176/68; Ht 157.5 cm; Wt 64.5 kg
[2016-12-21 08:25] LABS: BASOPHILS 0.4 % (0-2); EOSINOPHILS 3.4 % (0-7); HEMATOCRIT 37.7 % (36.0-48.0); HEMOGLOBIN 12.4 g/dL (12-16); IMMATURE GRANULOCYTES 0.2 % (0-5); LYMPHOCYTES 29.5 % (15-50); MCH 30.4 pg (26.0-34.0); MCHC 32.9 g/dL (31.0-37.0); MCV 92.4 fL (80.0-100.0); MEAN PLATELET VOLUME 10.8 fL (7.4-10.4); MONOCYTES 7.1 % (2-11); NEUTROPHILS 59.4 % (40-80); PLATELET COUNT 288 10x3/uL (130-400); RBC 4.08 10x6/uL (4.00-5.40); RDW 14.3 % (11.5-14.5); WBC 11.1 10x3/uL (4.8-10.8)
[2016-12-21 08:42] LABS: ANION GAP 13.3 mmol/L (8-16); CARBON DIOXIDE 21.7 mmol/L (21.0-32.0); CREATININE - SERUM 1.1 mg/dL (0.6-1.3)
--- NOTE | 2016-12-21 14:59 | NUR ---
1215-CONTINUES TO C/O PAIN- MORPHINE 4MG SIVP GIVEN, LEFT HAND IV CDI, RIGHT GROIN CDI, NO HEMATOMA OR BLEEDING 1245-RIGHT GROIN CDI, PAIN BETTER- RESTING
--- NOTE | 2016-12-21 16:30 | NUR ---
1545-IV D'C WITH CATH TIP INTACT,WRITTEN AND VERBAL INSTRUCTIONS GIVEN TO PT, AT SIDE-DOES NOT SPEAK GUYANESE, DENIES FURTHUR NEEDS AT THIS TIME. PAIN IN ARM AND NECK BETTER
== END 2016-12-21 16:00 | disposition home or self-care (01) ==
LOC: D.CATH 07:24
PROVIDERS: Internal Medicine Interventional Cardiology
DX: I25.119 Atherosclerotic heart disease of native coronary artery with unspecified angina pectoris (principal); Z95.5 Presence of coronary angioplasty implant and graft; I70.212 Atherosclerosis of native arteries of extremities with intermittent claudication, left leg
CPT/HCPCS: 37226; C9600

== ENCOUNTER 2016-12-22 00:38 | Observation (INO) | payer MEDICAID ==
[~2016-12-22] VITALS: Ht 157.5 cm; Wt 64.4 kg
[2016-12-22] VITALS (7 sets, daily range): BP systolic 143–172; BP diastolic 53–64; BMI 26.0
--- NOTE | ~2016-12-22 | HEMODYNAMI ---
PATIENT:TJ CRAIG MEDICAL RECORD: [id number] : 60 LOCATION:[address] ADMISSION DATE: 12/22/16 Generatedon:12/23/201610:06 Patient name: TJ CRAIG Patient #: [id number] : 1960 Date of study: 12/23/2016 Page: Of Hemodynamic Procedure Report Patient Data Patient Demographics Procedure consent was obtained First Name: TJ Gender: Female Last Name: KIARA : 1960 Patient #: [id number] Age: 56 year(s) Race: Other SSN: [id number] Additional ID: [id number] Contact details [address]: [address] [place] [address] State: [place] City: [place] Zip code: [address] Past Medical History Allergies Allergen Reaction Date Comments Reported Other allergy 12/21/2016 steroids Admission Admission Data Admission Date: 12/22/2016 Admission Time: 2:35 Room #: 2117 Procedure Procedure Types Cath Procedure Diagnostic Procedure [facility] w/Coronaries PCI Procedure Coronary Stent Initial Miscellaneous Procedures Moderate Sedation up to 45 minutes Procedure Description Procedure Date Procedure Date: 12/23/2016 Procedure Start Time: 9:07 Procedure End Time: 10:04 Procedure Staff Name Function Akin Hua MD Performing Physician Nelia López RN Nurse Mazin Villalobos RT Monitor Gurpreet Waterman RT Scrub Procedure Data Cath Procedure Fluoroscopy Diagnostic fluoroscopy Total fluoroscopy Time: time: 11.4 min 11.4 min Diagnostic fluoroscopy Total fluoroscopy dose: dose: 1229 mGy 1229 mGy Contrast Material Contrast Material Type Amount (ml) Isovue 300 162 Entry Location Entry Primary Successful Side Size Upsize Upsize Entry Closure Succes sful Closure Location (Fr) 1 (Fr) 2 (Fr) Remarks Device Remarks Femoral Left 5 Fr 6 Fr Exoseal artery Short Estimated blood loss: 10 ml Diagnostic catheters Device Type Used For End Catheter Placement Cordis 5Fr JL 4.0 Procedure Catheter (MP) Cordis 5Fr 3DRC Catheter Procedure (MP) Cordis 5Fr Pigtail Procedure Catheter (MP) Procedure Complications No complications Procedure Medications Medication Administration Route Dosage Oxygen NC 2 l/min Heparin Flush Bag added to field 2 bags (1000units/500ml NS) Lidocaine 2% added to field 20 Versed I.V. 1 mg Fentanyl I.V. 50 mcg Versed I.V. 0.5 mg Fentanyl I.V. 25 mcg Versed I.V. 0.5 mg Fentanyl I.V. 25 mcg Fentanyl I.V. 50 mcg Heparin Bolus I.V. 6500 units Fentanyl I.V. 50 mcg Nitroglycerin IC/IA I.C. 100 mcg Hemodynamics Rest HGB: 12.3 (g/dl) Heart Rate: 75 (bpm) Pressure Samples Time Site Value (mmHg) Purpose Heart Use Rate(bpm) 9:38 LV 147/2,22 Snapshot 82 9:39 AO 161/59(96) Pullback 78 9:39 LV 150/2,22 Pullback 78 9:43 AO 125/53(77) Snapshot 79 Gradients Valve Time Site 1 Site 2 Mean SEP/DFP Peak To Heart Use (mmHg) (sec/min) Peak Rate (mmHg) (bpm) Aortic 9:39 LV AO 0 7 0 78 150/2,22 161/59(96) Calculations Valve P-P Mean Valve Index Valve Source Name Gradient Area Flow (cm2) Aortic 0 0 0 0 Snapshots Pre Cath Intra NCS Post Cath Vital Signs Time Heart Resp SPO2 etCO2 [id number] NIBP (mmHg) Rhythm Pain Sedation Rate (ipm) (%) (mmHg) (mmHg) Status Level (bpm) 8:50:46 75 18 96 0 0 151/66(100) NSR 0 (11) 10(A) , No pain 8:55:45 75 14 96 0 0 Measuring NSR 0 (11) 10(A) , No pain 8:56:04 75 16 96 0 0 152/62(100) NSR 0 (11) 10(A) , No pain 9:00:28 75 19 98 0 0 147/63(102) NSR 0 (11) 10(A) , No pain 9:04:44 76 17 98 0 0 142/75(116) NSR 0 (11) 9(A) , No pain 9:09:04 75 18 98 0 0 146/74(100) NSR 0 (11) 9(A) , No pain 9:14:03 77 18 97 0 0 Measuring NSR 0 (11) 9(A) , No pain 9:14:23 75 18 97 0 0 147/58(109) NSR 0 (11) 9(A) , No pain 9:19:23 77 19 97 0 0 Measuring NSR 0 (11) 9(A) , No pain 9:19:49 77 19 98 0 0 127/70(93) NSR 0 (11) 9(A) , No pain 9:24:48 78 18 98 0 0 Measuring NSR 0 (11) 9(A) , No pain 9:25:03 77 18 98 0 0 132/66(93) NSR 0 (11) 9(A) , No pain 9:30:02 73 19 98 0 0 Measuring NSR 0 (11) 9(A) , No pain 9:30:16 80 19 98 0 0 144/57(114) NSR 0 (11) 9(A) , No pain 9:34:38 79 19 98 0 0 144/63(97) NSR 0 (11) 9(A) , No pain 9:39:37 85 18 100 0 0 Measuring NSR 0 (11) 9(A) , No pain 9:39:58 83 18 100 0 0 131/61(94) NSR 0 (11) 9(A) , No pain 9:44:14 79 19 95 0 0 132/59(104) NSR 0 (11) 9(A) , No pain 9:48:30 79 18 98 0 0 132/67(105) NSR 0 (11) 9(A) , No pain 9:52:50 79 18 98 0 0 147/67(101) NSR 0 (11) 9(A) , No pain 9:57:12 82 18 98 0 0 138/61(100) NSR 0 (11) 9(A) , No pain 9:59:39 80 18 98 0 0 132/69(98) NSR 0 (11) 9(A) , No pain 10:03:57 79 7 98 0 0 139/71(100) NSR 0 (11) 9(A) , No pain Medications Time Medication Route Dose Verified Delivered Reason Notes Effectiveness by by 8:49:36 Oxygen NC 2 Akin Nelia Per physician l/min Mookie López RN 8:49:43 Heparin Flush added 2 Akin Akin used for Bag to bags Mookie Hua MD procedure (1000units/500ml field NS) 8:50:06 Lidocaine 2% added 20ml Akin Akin used for to vial Mookie Hua MD procedure field 8:56:37 Versed I.V. 1 mg Akin Nelia for sedation Mookie López RN 8:56:42 Fentanyl I.V. 50 Akin Nelai for sedation mcg Mookie López RN 9:00:44 Versed I.V. 0.5 Akin Nelia for sedation mg Mookie López RN 9:00:53 Fentanyl I.V. 25 Akin Nelia for sedation mcg Mookie López RN 9:03:37 Versed I.V. 0.5 Akin Nelia for sedation mg Mookie López RN 9:03:59 Fentanyl I.V. 25 Akin Nelia for sedation mcg Mookie López RN 9:40:47 Fentanyl I.V. 50 Akin Nelia for sedation mcg Mookie López RN 9:43:50 Heparin Bolus I.V. 6500 Akin Nelia for dose units Mookie López RN anticoagulation verified wtih dr hua 9:47:16 Fentanyl I.V. 50 Akin Nelia for sedation mcg Mookie López RN 9:53:45 Nitroglycerin I.C. 100 Akin Akin for IC/IA mcg Mookie Hua MD vasodilation Procedure Log Time Note 8:30:29 Time tracking: Regular hours 8:30:33 Plan of Care:Hemodynamics will remain stable., Cardiac rhythm will remain stable., Comfort level will be maintained., Respiratory function will remain adequate., Patient/ family verbilizes understanding of procedure., Procedure tolerated without complication., Recovers from procedure without complications.. 8:30:45 Gurpreet Waterman RT(R) sent for patient. Start room use. 8:41:24 Patient received from PCU to CCL 1 Alert and oriented. Tansferred to table in Supine position. 8:41:26 Warm blankets applied, and kingston hugger turned on for patient comfort. 8:41:26 Correct patient and procedure confirmed by team. 8:41:27 Signed procedure consent form obtained from patient. 8:41:28 ECG and BP/O2 sat monitors applied to patient. 8:49:24 Vital chart was started 8:49:36 Oxygen 2 l/min NC was administered by Nelia López RN; Per physician; 8:49:43 Heparin Flush Bag (1000units/500ml NS) 2 bags added to field was administered by Akin Hua MD; used for procedure; 8:50:06 Lidocaine 2% 20ml vial added to field was administered by Akin Hua MD; used for procedure; 8:50:30 Baseline sample Acquired. 8:50:44 Rhythm: sinus rhythm 8:50:46 Full Disclosure recording started 8:50:53 H&P Date Dictated: 12/22/2016 Within 30 days and on chart.. 8:50:54 Pre-procedure instructions explained to patient. 8:50:55 Pre-op teaching completed and patient verbalized understanding. 8:50:56 Family in waiting room. 8:50:58 Patient NPO since Midnight. 8:50:59 Is the patient allergic to Iodine/contrast media? No. 8:51:01 Is patient on blood thinner?Yes 8:51:03 ACC The patient was administered the following blood thiners within the last 24 hours: ACCPlavix 8:51:06 Patient diabetic? Yes. 8:51:07 If diabetic: On Metformin? Yes 8:51:09 If on Metformin: Last Dose? 12/19/2016 8:51:29 Patient not . Patient is over age 55. 8:51:32 Previous problem with sedation/anesthesia? No ? 8:51:33 Snore? Yes 8:51:34 Sleep apnea? No 8:51:34 Deviated septum? No 8:51:35 Opens mouth fully? Yes 8:51:36 Sticks out tongue? Yes 8:51:37 Airway obstruction? No ? 8:51:39 Dentures? No ? 8:51:43 Pre procedure: left dorsailis pedis pulse 1+ Palpable, but thready & weak; easily obliterated 8:51:45 Patient pain scale 0/10 ?. 8:51:48 Heparin Dc'd upon arrival to [facility]. 8:51:49 IV patent on arrival in left antecubital with 0.9% NaCl at [facility]. 8:51:50 Lab results completed and on chart. 8:51:55 Left groin area was prepped with chlora-prep and draped in sterile fashion 8:51:57 Alarms reviewed by R. N. 8:51:57 Sharps counted by scrub and verified by R.N. 8:52:00 Use device set Femoral Dx 8:52:02 Tegaderm 4 x 4 opened to sterile field. 8:52:03 Acist Hand Control opened to sterile field. 8:52:03 Acist Manifold opened to sterile field. 8:52:04 Acist Syringe opened to sterile field. 8:52:04 Bag Decanter opened to sterile field. 8:52:05 Medline Cath Pack opened to sterile field. 8:52:05 Terumo 5Fr [place] Sheath opened to sterile field. 8:52:06 St Remy 260cm J .035 wire opened to sterile field. 8:52:07 Diagnostic Infinity 5Fr Multipack catheter opened to sterile field. 8:55:33 --------ALL STOP TIME OUT------ 8:55:34 Final Timeout: patient, procedure, and site verified with staff and physician. All members of the team are in agreement. 8:55:36 Left groin site verified by team. 8:55:40 Physical assessment completed. ASA score P 2 - A patient with mild systemic disease as per Akin Hua MD. 8:55:45 Sedation plan: IV Moderate Sedation Versed, Fentanyl 8:56:37 Versed 1 mg I.V. was administered by Nelia López RN; for sedation; 8:56:42 Fentanyl 50 mcg I.V. was administered by Nelia López RN; for sedation; 9:00:44 Versed 0.5 mg I.V. was administered by Nelia López RN; for sedation; 9:00:53 Fentanyl 25 mcg I.V. was administered by Nelia López RN; for sedation; 9:03:37 Versed 0.5 mg I.V. was administered by Nelia López RN; for sedation; 9:03:59 Fentanyl 25 mcg I.V. was administered by Nelia López RN; for sedation; 9:07:05 Procedure started. 9:07:18 Local anesthetic to left femerol artery with Lidocaine 2% by Akin Hua MD.INITIAL ACCESS ONLY 9:09:12 Zero performed for pressure channel P1 9:19:21 A 5 Fr sheath was inserted into the Left Femoral artery 9:25:04 A Cordis 5Fr JL 4.0 Catheter (MP) was advanced over the wire and used for Procedure. 9:26:12 LCA angiography performed. 9:28:01 Catheter exchanged over wire. 9:28:06 A Cordis 5Fr 3DRC Catheter (MP) was advanced over the wire and used for Procedure. 9:28:33 RCA angiography performed. 9:36:48 Catheter exchanged over wire. 9:36:59 A Cordis 5Fr Pigtail Catheter (MP) was advanced over the wire and used for Procedure. 9:38:05 Terumo 6Fr [place] Sheath opened to sterile field. 9:38:05 [employer] BMW [place] 2 J-tip 300cm 0.014 guide wir opened to sterile field. 9:38:05 High Pressure Extension Tubing (Mookie) opened to sterile field. 9:38:06 [employer] Launcher 6Fr AR 1.0 guide catheter opened to sterile field. 9:38:14 [employer] BasixCompak Inflation Kit opened to sterile field. 9:40:12 LV angiography performed. 9:40:13 LV gram done using CORDOVA 9:40:19 EF : 55 % 9:40:20 LV hemodynamics recorded. 9:40:24 Injector settings: Ml/sec: 10, Volume: 20, 9:40:26 Catheter exchanged over wire. 9:40:36 Sheath upsized to a 6 Fr Short. 9:40:47 Fentanyl 50 mcg I.V. was administered by Nelia López RN; for sedation; 9:41:50 6 Fr AR 1 guide catheter was inserted over the wire 9:43:50 Heparin Bolus 6500 units I.V. was administered by Nelia López RN; for anticoagulation; dose verified wtih dr hua 9:44:27 BMW wire advanced. 9:45:49 Wire advanced across lesion. 9:47:16 Fentanyl 50 mcg I.V. was administered by Nelia López RN; for sedation; 9:50:31 Inflation Number: 1 A Medtronic Integrity 2.25 X 12 stent was prepped and advanced across the Dist RCA. The stent was deployed at 10 LEA for 0:10 (min:sec). 9:51:35 Inflation number: 2 The stent balloon was then re-inflated across the Dist RCA to 14 LEA for 0:10 (min:sec). 9:53:45 Nitroglycerin IC/IA 100 mcg I.C. was administered by Akin Hua MD; for vasodilation; 9:55:34 Stent catheter was removed intact over wire. 9:55:35 Wire removed. 9:55:36 Guide catheter removed. 9:55:46 Cordis 6Fr Exoseal opened to sterile field. 9:56:59 Sheath removed intact; hemostasis achieved with Exoseal to the Left Femoral artery. 9:57:01 Procedure ended.(Physican Out) 9:57:45 Fluoroscopy time 11.40 minutes. 9:57:49 Fluoroscopy dose: 1229 mGy 9:57:49 Flurop Dose total: 1229 9:57:54 Contrast amount:Isovue 300 162ml. 9:57:56 Sharps counted by scrub and verified by R.N. 9:57:58 Insertion/operative site no bleeding no hematoma. 9:58:01 Post-op/insertion site Right Femoral artery dressed using a 4 x 4 and Tegaderm. 9:58:02 Post Procedure Pulses reassessed and unchanged 9:58:05 Post-procedure physical assessment completed. ASA score P 2 - A patient with mild systemic disease as per Akin Hua MD. 9:58:08 Post procedure rhythm: unchanged. 9:58:11 Estimated blood loss: 10 ml 9:58:12 Post procedure instruction explained to patient.Patient verbalizes understanding. 9:58:13 Patient needs reinforcement of post procedure teaching. 9:58:29 Procedure type changed to Cath procedure, Diagnostic procedure, LHC, LHC w/Coronaries, PCI procedure, Coronary Stent Initial, Miscellaneous Procedures, Moderate Sedation up to 45 minutes 9:59:02 Procedure and supply charges have been captured, reviewed, submitted and are correct. 9:59:04 Procedure Complication : No complications 10:03:38 Vital chart was stopped 10:03:39 See physician's report for complete and final results. 10:04:00 Report given to PCU. 10:04:05 Patient transfered to PCU with Bed. 10:04:07 Procedure ended. 10:04:07 Full Disclosure recording stopped 10:04:27 End room use (Document Last) Intervention Summary Intervention Notes Time ActionType Lesion and Equipment Action# Pressure Duration Attributes Used 9:50:31 Place stent Dist RCA Medtronic 1 10 00:10 Integrity 2.25 X 12 stent 9:51:35 Reinflate Dist RCA Medtronic 2 14 00:10 stent Integrity balloon 2.25 X 12 stent Device Usage Item Name Manufacture Quantity Catalog Hospital Part Current Minimal L ot# / Number Charge Number Stock Stock Serial# Code Tegaderm 4 1 [id number] [id number] [id number] 633858 5 x 4 Acist Hand Acist 1 47963 984282 735174 177601 5 Control Medical Systems [employer] Acist Acist 1 60005 568184 185326 998156 5 Manifold Medical Systems Inc Acist Acist 1 11031 978319 045545 300806 20 Syringe Medical Systems [employer] Bag Microtek 1 2002S 452040 16399 008958 5 [employer] Medline Cardinal 1 [id number] 823285 01540 274584 5 Cath Pack Health Terumo 5Fr Terumo 1 [id number] 646827 197807 939241 [address] Remy 1 814875 624855 675555 329464 30 260cm J .035 wire Diagnostic Cardinal 1 [id number] 977275 74828 541292 30 Infinity Health 5Fr Multipack catheter Cordis 5Fr Cardinal 1 [id number] 5 JL 4.0 Health Catheter (MP) Cordis 5Fr Cardinal 1 495219 5 3DRC Health Catheter (MP) Cordis 5Fr Cardinal 1 995222 5 Pigtail Health Catheter (MP) Terumo 6Fr Terumo 1 [id number] 888520 472377 261770 40 [place] Sheath Zamudio BMW Zamudio 1 [id number] 380086 211953 648902 5 [place] 2 Vascular J-tip 300cm 0.014 guide wir High Merit 1 [id number] 944497 14581 690289 10 Pressure Medical Extension Tubing (Hua) Medtronic Medtronic 1 [id number] 120547 28703 080993 1 Launcher 6Fr AR 1.0 guide catheter Merit Merit 1 TZ3891 366296 582727 868223 15 [employer] Medical Inflation Kit Medtronic Medtronic 1 [id number] 566931 951432 996054 1 0 [id number] Integrity 2.25 X 12 stent Cordis 6Fr Cardinal 1 [id number] 788692 237183 659463 10 [employer] Signature Audit [place] Stage Time Signature Unsigned Intra-Procedure 12/23/2016 Mazin Villalobos 10:06:35 AM RT(R) Signatures Monitor : Mazin Villalobos RT Signature : Date : Time : [id number] [place] [address]
[~2016-12-22 00:38] MED LIST changes: +NEURONTIN 300300 MG PO
[2016-12-22 01:11] LABS: BASOPHILS 0.2 % (0-2); EOSINOPHILS 2.3 % (0-7); HEMATOCRIT 36.3 % (36.0-48.0); HEMOGLOBIN 11.9 g/dL (12-16); IMMATURE GRANULOCYTES 0.3 % (0-5); LYMPHOCYTES 21.4 % (15-50); MCH 30.5 pg (26.0-34.0); MCHC 32.8 g/dL (31.0-37.0); MCV 93.1 fL (80.0-100.0); MONOCYTES 6.4 % (2-11); NEUTROPHILS 69.4 % (40-80); PLATELET COUNT 271 10x3/uL (130-400); RDW 14.5 % (11.5-14.5); WBC 10.4 10x3/uL (4.8-10.8)
[2016-12-22 01:25] LABS: ALBUMIN 3.1 g/dL (3.4-5.0); ALKALINE PHOSPHATASE 174 U/L (46-116); ALT (SGPT) 99 U/L (10-68); BILIRUBIN - TOTAL 0.19 mg/dL (0.2-1.3); CALC OSMOLALITY 285 mosm/kg (275-300); CALCIUM 8.5 mg/dL (8.5-10.1); CARBON DIOXIDE 27.4 mmol/L (21.0-32.0); CHLORIDE - SERUM 104 mmol/L (98-107); CREATININE - SERUM 1.2 mg/dL (0.6-1.3); GLUCOSE 251 mg/dL (74-106); POTASSIUM - SERUM 4.3 mmol/L (3.5-5.1); PROTEIN - SERUM 7.6 g/dL (6.4-8.2); SODIUM 138 mmol/L (136-145); UREA NITROGEN 17 mg/dL (7-18); eGFR NON AFRICAN AMERICAN 49 mL/min (90-120)
[2016-12-22 01:41] LABS: CHOL - HDL RATIO 6.4 ratio (2.3-4.1); CHOLESTEROL, TOTAL 225 mg/dL (0-200); CKMB 30.1 U/L (0.0-3.6); CREATINE KINASE 228 UL (21-215); HDL CHOLESTEROL 35 mg/dL (32-96); LDL CHOLESTEROL 136 mg/dL (0-100); LDL-HDL RATIO 3.9 ratio (1.5-3.5); TRIGLYCERIDE 271 mg/dL (30-200)
[2016-12-22 01:42] LABS: TROPONIN-I 4.096 ng/mL (0.000-0.060)
[2016-12-22 10:48] LABS: TROPONIN-I 6.584 ng/mL (0.000-0.060)
--- NOTE | 2016-12-22 19:42 | NUR ---
RAPID RESPONSE CALLED FOR STROKE LIKE SYMPTOMS. DIFFICULTY SPEAKING, WEAKENED VOICER FROM PREVIOUS ASSESSMENT. CT OF HEAD ORDERED, AWAITING RESULTS. 172/63, 80 SR. FAMILY AT BEDSIDE, CALL LIGHT IN REACH. WILL CONTINUE TO MONITOR.
--- NOTE | 2016-12-22 20:36 | NUR ---
BACK FROM CT, AWAITING RESULTS.
--- NOTE | 2016-12-22 21:07 | NUR ---
CT RESULTS CALLED TO DR. ZAMAN, NO NEW ORDERS RECEIVED. WILL CONTINUE TO MONITOR.
--- NOTE | 2016-12-23 05:49 | NUR ---
NO CHANGES FROM PREVIOUS ASSESSMENT, REMAINS NPO. CALL LIGHT IN REACH. WILL CONTINUE TO MONITOR.
[2016-12-23 06:42] VITALS: BP 145/54
[2016-12-23 08:05] LABS: BASOPHILS 0.3 % (0-2); EOSINOPHILS 3.3 % (0-7); HEMATOCRIT 33.6 % (36.0-48.0); HEMOGLOBIN 10.8 g/dL (12-16); IMMATURE GRANULOCYTES 0.1 % (0-5); LYMPHOCYTES 33.6 % (15-50); MCH 30.4 pg (26.0-34.0); MCHC 32.1 g/dL (31.0-37.0); MCV 94.6 fL (80.0-100.0); MEAN PLATELET VOLUME 11.3 fL (7.4-10.4); NEUTROPHILS 52.7 % (40-80); PLATELET COUNT 260 10x3/uL (130-400); RBC 3.55 10x6/uL (4.00-5.40); RDW 14.5 % (11.5-14.5); WBC 9.9 10x3/uL (4.8-10.8)
[2016-12-23 08:13] LABS: ANION GAP 9.8 mmol/L (8-16); CALCIUM 8.7 mg/dL (8.5-10.1); CARBON DIOXIDE 29.3 mmol/L (21.0-32.0); CREATININE - SERUM 1.3 mg/dL (0.6-1.3); POTASSIUM - SERUM 4.1 mmol/L (3.5-5.1)
[2016-12-23 08:44] VITALS: BP 151/48
--- NOTE | 2016-12-23 08:46 | NUR ---
PRE-OPS GIVEN. TO URINALYSIS TECHNICIAN BY BED.
[2016-12-23 09:47] VITALS: Ht 157.5 cm; Wt 64.4 kg
--- NOTE | 2016-12-23 10:34 | NUR ---
BACK FROM METAL ROOFER. VS WNL. RIGHT GROIN STABLE WITHOUT BLEEDING OR HEMATOMA NOTED. WILL MONITOR.
[2016-12-23 12:26] VITALS: BP 115/55
--- NOTE | 2016-12-23 14:33 | NUR ---
BED REST UP. GROIN STABLE. IV AND TELEMETRY DCD. DC PLANS GIVEN. UNDERSTANDING VOICED.
--- NOTE | 2016-12-23 14:40 | NUR ---
ESCORTED TO CAR BY W/C.
--- NOTE | 2016-12-26 14:16 | OP ---
PATIENT NAME: TJ CRAIG MEDICAL RECORD: [id number] :60 LOCATION:[address] ADMISSION DATE:12/22/16 SURGEON: NELIDA ZAMAN M.D. DATE OF OPERATION: 12/23/2016 PROCEDURES PERFORMED: 1. Selective coronary angiography. 2. Left heart catheterization with ventriculogram. 3. PTCA and stent placed in the right coronary artery. INDICATION: A 56-year-old woman status post stent in the right coronary artery presents with recurrent chest pain and abnormal enzymes. EQUIPMENT USED: Diagnostic 5-Cypriot JL4, Eliazar right, pigtail catheter. INTERVENTION: A 6-Cypriot AR1 guide, BMW guide wire, 2.25 x 12 mm Integrity stent. TECHNIQUE: A 5-Cypriot sheath was inserted in retrograde fashion in the left common femoral artery. Next, selective coronary angiography was performed in standard views using 5-Cypriot JL4 and Eliazar right. Left heart catheterization was performed using pigtail catheter. CORONARY ANATOMY: 1. Left main: Left main trunk is moderate in caliber. It gives rise to the LAD and circumflex. There is no obstruction. 2. LAD: This is a moderate caliber vessel extending to the apex. The proximal mid vessel has been stented. The stents are widely patent. There is no evidence of restenosis. 3. Circumflex: This vessel is moderate in caliber. It has mild irregularities throughout its course, but nothing worse than 30%. 4. Right coronary artery: This vessel is large in caliber and dominant. The proximal, mid and distal vessels have been stented. The stents are all widely patent. However, at the edge of the last stent, there appears to be an edge dissection with a ruptured plaque. 5. Left ventricle: Left ventricle is normal in size and function. No wall motion abnormalities are seen. Estimated ejection fraction is 55%. DESCRIPTION OF INTERVENTION: A 6-Cypriot sheath was inserted in retrograde fashion in the left common femoral artery. Next, 100 units per kilogram of heparin was infused. A 6-Cypriot AR1 guide was advanced and engaged in the right coronary artery. Next, a BMW guide wire was placed in the distal vessel. A 2.25 x 12 mm Integrity stent was advanced and placed across the edge dissection of the distal stent. The stent was then deployed at 12 atmospheres. Injection reveals stent to be widely patent with 0% residual stenosis. This resulted in resolution of the edge dissection. There is no evidence of any flow abnormalities or haziness in the distal right coronary artery. At this point, the wire and guide were removed. IMPRESSION: Successful percutaneous transluminal coronary angioplasty stent of the right coronary artery with 0% residual stenosis. TRANSINT:[id number] Voice Confirmation ID: [id number] DOCUMENT ID: [id number] OPERATIVE REPORT [id number] TJ CRAIG TIMOTHY E M.D. at 1416 CC: [id number] DICTATION DATE: 12/23/16 1004 OCCUPATIONAL HEALTH COORDINATOR: 12/23/161916 DIS IN 12/23/16 [facility] [address] [place] [address]
== END 2016-12-23 14:41 | disposition home or self-care (01) ==
LOC: D.ER 00:38 → D.M2 02:35 → OBSVTIME 02:35 → D.M2 12-23 14:41
PROVIDERS: Emergency Medicine; ADMIT Internal Medicine Cardiovascular Disease
DX: I21.4 Non-ST elevation (NSTEMI) myocardial infarction (principal); I25.110 Atherosclerotic heart disease of native coronary artery with unstable angina pectoris; I73.9 Peripheral vascular disease, unspecified; I10 Essential (primary) hypertension; Z86.73 Personal history of transient ischemic attack (TIA), and cerebral infarction without residual deficits; E11.9 Type 2 diabetes mellitus without complications; I70.1 Atherosclerosis of renal artery

== ENCOUNTER 2017-01-06 12:49 | Emergency (ER) | payer MEDICAID ==
[2016-12-23 09:47] VITALS: BMI 25.9
[2017-01-06 14:16] LABS: BASOPHILS 0.4 % (0-2); EOSINOPHILS 3.4 % (0-7); HEMATOCRIT 38.1 % (36.0-48.0); HEMOGLOBIN 12.7 g/dL (12-16); IMMATURE GRANULOCYTES 0.1 % (0-5); LYMPHOCYTES 32.2 % (15-50); MCH 30.9 pg (26.0-34.0); MCHC 33.3 g/dL (31.0-37.0); MCV 92.7 fL (80.0-100.0); MEAN PLATELET VOLUME 10.5 fL (7.4-10.4); MONOCYTES 6.8 % (2-11); NEUTROPHILS 57.1 % (40-80); PLATELET COUNT 337 10x3/uL (130-400); RBC 4.11 10x6/uL (4.00-5.40); RDW 14.1 % (11.5-14.5)
[2017-01-06 14:30] LABS: ALBUMIN 3.5 g/dL (3.4-5.0); ALKALINE PHOSPHATASE 155 U/L (46-116); ALT (SGPT) 33 U/L (10-68); BILIRUBIN - TOTAL 0.09 mg/dL (0.2-1.3); CALC OSMOLALITY 277 mosm/kg (275-300); CALCIUM 9.1 mg/dL (8.5-10.1); CARBON DIOXIDE 23.7 mmol/L (21.0-32.0); CHLORIDE - SERUM 102 mmol/L (98-107); CREATININE - SERUM 1.5 mg/dL (0.6-1.3); GLUCOSE 141 mg/dL (74-106); POTASSIUM - SERUM 4.3 mmol/L (3.5-5.1); PROTEIN - SERUM 8.1 g/dL (6.4-8.2); SODIUM 135 mmol/L (136-145); UREA NITROGEN 30 mg/dL (7-18); eGFR NON AFRICAN AMERICAN 38 mL/min (90-120)
[2017-01-06 14:41] LABS: CHOLESTEROL, TOTAL 169 mg/dL (0-200); CKMB 0.7 U/L (0.0-3.6); CREATINE KINASE 91 UL (21-215); HDL CHOLESTEROL 42 mg/dL (32-96); LDL CHOLESTEROL 78 mg/dL (0-100); LDL-HDL RATIO 1.9 ratio (1.5-3.5); TRIGLYCERIDE 245 mg/dL (30-200); TROPONIN-I 0.021 ng/mL (0.000-0.060)
== END 2017-01-06 15:45 | disposition home or self-care (01) ==
LOC: D.ER 12:49
PROVIDERS: Emergency Medicine
DX: R07.9 Chest pain, unspecified (principal); R11.10 Vomiting, unspecified; E86.0 Dehydration; S37.009A Unspecified injury of unspecified kidney, initial encounter; X58.XXXA Exposure to other specified factors, initial encounter; Y93.89 Activity, other specified; Y92.89 Other specified places as the place of occurrence of the external cause; I10 Essential (primary) hypertension; I25.10 Atherosclerotic heart disease of native coronary artery without angina pectoris; E11.9 Type 2 diabetes mellitus without complications; Z86.73 Personal history of transient ischemic attack (TIA), and cerebral infarction without residual deficits

== ENCOUNTER 2017-01-11 22:42 | Emergency (ER) | payer MEDICAID ==
[2016-12-23 09:47] VITALS: BMI 25.9
[2017-01-12 00:26] LABS: BASOPHILS 0.2 % (0-2); EOSINOPHILS 2.5 % (0-7); HEMATOCRIT 35.5 % (36.0-48.0); HEMOGLOBIN 11.9 g/dL (12-16); IMMATURE GRANULOCYTES 0.1 % (0-5); MCHC 33.5 g/dL (31.0-37.0); MCV 92.4 fL (80.0-100.0); MEAN PLATELET VOLUME 9.8 fL (7.4-10.4); MONOCYTES 5.7 % (2-11); NEUTROPHILS 56.5 % (40-80); PLATELET COUNT 277 10x3/uL (130-400); RBC 3.84 10x6/uL (4.00-5.40); WBC 10.3 10x3/uL (4.8-10.8)
[2017-01-12 00:37] LABS: ALBUMIN 3.2 g/dL (3.4-5.0); ALKALINE PHOSPHATASE 124 U/L (46-116); ALT (SGPT) 23 U/L (10-68); BILIRUBIN - TOTAL 0.12 mg/dL (0.2-1.3); CALC OSMOLALITY 285 mosm/kg (275-300); CALCIUM 8.7 mg/dL (8.5-10.1); CARBON DIOXIDE 29.5 mmol/L (21.0-32.0); CHLORIDE - SERUM 102 mmol/L (98-107); CREATININE - SERUM 1.3 mg/dL (0.6-1.3); GLUCOSE 241 mg/dL (74-106); POTASSIUM - SERUM 3.7 mmol/L (3.5-5.1); PROTEIN - SERUM 7.6 g/dL (6.4-8.2); SODIUM 138 mmol/L (136-145); UREA NITROGEN 17 mg/dL (7-18); eGFR NON AFRICAN AMERICAN 45 mL/min (90-120)
[2017-01-12 00:45] LABS: CREATINE KINASE 51 UL (21-215); PRO BNP 1230 pg/mL (0-125)
[2017-01-12 01:41] LABS: TROPONIN-I < 0.017 ng/mL (0.000-0.060)
== END 2017-01-12 03:11 | disposition home or self-care (01) ==
LOC: D.ER 22:42
PROVIDERS: Emergency Medicine
DX: R06.00 Dyspnea, unspecified (principal); I50.9 Heart failure, unspecified; I10 Essential (primary) hypertension; Z86.73 Personal history of transient ischemic attack (TIA), and cerebral infarction without residual deficits

== ENCOUNTER 2017-01-18 01:41 | Emergency (ER) | payer MEDICAID ==
[2016-12-23 09:47] VITALS: BMI 25.9
--- NOTE | 2017-01-20 07:36 | DS ---
PATIENT:TJ CRAIG :60 MEDICAL RECORD: [id number] DISCHARGE SUMMARY ADMISSION DATE: 01/18/17 DISCHARGE DATE: 01/18/17 DISCHARGE DIAGNOSES: 1. Angina. 2. Coronary artery disease. 3. Percutaneous transluminal coronary angioplasty stent right coronary artery this admission. HOSPITAL COURSE: This is a woman who presents with anginal symptomatology, found to have disease of the RCA and LAD, underwent successful PTCA stent of the RCA, was discharged home with the addition of aspirin and Plavix to her medical regimen. We will follow up in the near future for PTCA stent of the LAD. TRANSINT:[id number] Voice Confirmation ID: [id number] DOCUMENT ID: [id number] TRAE FORD MD at 0736 CC: [id number] DICTATION DATE: 01/19/17 0906 REAL ESTATE COORDINATOR: 01/20/17 0401 DEP ER 01/18/17 [id number] [place] [address]
== END 2017-01-18 02:30 | disposition home or self-care (01) ==
LOC: D.ER 01:41
DX: S91.104A Unspecified open wound of right lesser toe(s) without damage to nail, initial encounter (principal); X58.XXXA Exposure to other specified factors, initial encounter; Y93.9 Activity, unspecified; I10 Essential (primary) hypertension; I50.9 Heart failure, unspecified; E11.9 Type 2 diabetes mellitus without complications

== ENCOUNTER 2017-02-16 09:43 | Outpatient (CLI) | payer MEDICAID ==
[~2017-02-16] VITALS: Ht 157.5 cm; Wt 66.8 kg
--- NOTE | ~2017-02-16 | HEMODYNAMI ---
PATIENT:TJ CRAIG MEDICAL RECORD: [id number] : 60 LOCATION:[facility] ADMISSION DATE: 02/16/17 Generatedon:02/16/201712:54 Patient name: TJ CRAIG Patient #: [id number] : 1960 Date of study: 02/16/2017 Page: Of Hemodynamic Procedure Report Patient Data Patient Demographics Procedure consent was obtained First Name: TJ Gender: Female Last Name: KIARA : 1960 Middle Initial: ALTA Age: 57 year(s) Patient #: [id number] Race: Other SSN: [id number] Additional ID: [id number] Contact details Address: [address] [place] [address] [address] State: [place] City: [place] Zip code: [address] Past Medical History Allergies Allergen Reaction Date Comments Reported Other allergy 12/21/2016 steroids Other allergy 02/16/2017 Cortico-Steroids Admission Admission Data Admission Date: 02/16/2017 Admission Time: 9:43 Height (in.): 62 BSA: 1.68 (m2) Height (cm.): 157.48 BMI: 26.89 (kg/m2) Weight (lbs.): 147 Weight (kg.): 66.68 Lab Results Lab Result Date: 02/16/2017 Lab Result Time: 0:00 Biochemistry Name Units Result Min Max BUN mg/dl 18 --(---*)-- 7 18 Creatinine mg/dl 0.7 --(*---)-- 0.6 1.3 CBC Name Units Result Min Max Hematocrit % 40.7 -*(----)-- 42 54 Hemoglobin g/dl 13.8 --(*---)-- 13.5 17.5 Procedure Procedure Types Cath Procedure Diagnostic Procedure LHC LHC w/Coronaries Miscellaneous Procedures Moderate Sedation up to 45 minutes Peripheral vascular Intervention Stent Stent-Fem/Pop w/ather w/plasty Procedure Description Procedure Date Procedure Date: 02/16/2017 Procedure Start Time: 12:17 Procedure End Time: 12:54 Procedure Staff Name Function Pelon Sy MD Performing Physician Scooter Wilson RT Scrub Kim Rasmussen RT Monitor Nelia López RN Nurse Procedure Data Cath Procedure Fluoroscopy Diagnostic fluoroscopy Total fluoroscopy Time: time: 11.2 min 11.2 min Diagnostic fluoroscopy Total fluoroscopy dose: 483 dose: 483 mGy mGy Contrast Material Contrast Material Type Amount (ml) Isovue 300 139 Entry Location Entry Primary Successful Side Size Upsize Upsize Entry Closure Succes sful Closure Location (Fr) 1 (Fr) 2 (Fr) Remarks Device Remarks Femoral Left 6 Fr 6 Fr 6 Fr Exoseal artery Short Long Short Estimated blood loss: 10 ml Diagnostic catheters Device Type Used For End Catheter Placement Cordis 5Fr Pigtail LV Angiography Catheter (MP) Cordis 5Fr JL 4.0 Left Coronary Catheter (MP) Angiography Cordis 5Fr 3DRC Catheter Right Coronary (MP) Angiography Diagnostic 5Fr IMT Procedure Catheter Procedure Complications No complications Procedure Medications Medication Administration Route Dosage Oxygen NC 2 l/min Heparin Flush Bag added to field 2 bags (1000units/500ml NS) Lidocaine 2% added to field 20 Versed I.V. 1 mg Fentanyl I.V. 50 mcg Versed I.V. 1 mg Fentanyl I.V. 50 mcg Fentanyl I.V. 50 mcg Versed I.V. 1 mg Fentanyl I.V. 50 mcg Versed I.V. 1 mg Fentanyl I.V. 25 mcg Heparin Bolus I.V. 4000 units Fentanyl I.V. 25 mcg Hemodynamics Rest BSA: 1.68 (m2) HGB: 13.8 (g/dl) O2 Consumption: Estimated: 163.71 (ml/min) O2 Co nsumption indexed: Estimated:97.45 (ml/min/m) Heart Rate: 75 (bpm) Snapshots Pre Cath Intra NCS Post Cath Vital Signs Time Heart Resp SPO2 NIBP (mmHg) Rhythm Pain Sedation Rate (ipm) (%) Status Level (bpm) 11:52:37 75 15 100 165/75(106) NSR 0 (11) 10(A) , No pain 11:56:59 74 19 100 170/77(120) NSR 0 (11) 10(A) , No pain 12:01:17 70 19 100 143/73(107) NSR 0 (11) 10(A) , No pain 12:05:37 75 18 100 143/67(98) NSR 0 (11) 10(A) , No pain 12:10:04 73 15 100 141/56(94) NSR 0 (11) 10(A) , No pain 12:15:03 73 14 100 Measuring NSR 0 (11) 10(A) , No pain 12:15:27 72 16 100 141/60(94) NSR 0 (11) 10(A) , No pain 12:19:43 74 17 100 154/75(136) NSR 0 (11) 10(A) , No pain 12:24:42 83 15 99 Measuring NSR 0 (11) 9(A) , No pain 12:26:04 82 15 98 92/79(77) NSR 0 (11) 9(A) , No pain 12:29:29 83 15 98 Time NSR 0 (11) 9(A) Exceeded , No pain 12:33:55 84 14 99 100/87(93) NSR 0 (11) 9(A) , No pain 12:38:54 85 16 99 Measuring NSR 0 (11) 9(A) , No pain 12:40:18 81 16 98 103/78(60) NSR 0 (11) 9(A) , No pain 12:43:39 86 16 97 120/83(111) NSR 0 (11) 9(A) , No pain 12:48:38 82 18 97 Measuring NSR 0 (11) 9(A) , No pain 12:50:02 83 14 97 Time NSR 0 (11) 9(A) Exceeded , No pain 12:52:46 82 17 99 123/86(102) NSR 0 (11) 9(A) , No pain Medications Time Medication Route Dose Verified Delivered Reason Notes Effectiveness by by 11:57:12 Oxygen NC 2 Pelon Nelia Per physician l/min Yossi López RN 11:57:19 Heparin Flush added 2 Pelon Bird used for Bag to bags Yossi Sy MD procedure (1000units/500ml field NS) 11:57:27 Lidocaine 2% added 20ml Pelon Bird used for to vial Yossi Sy MD procedure field 12:16:15 Versed I.V. 1 mg Pelon Nelia for sedation Yossi López RN 12:16:20 Fentanyl I.V. 50 Pelon Nelia for sedation mcg Yossi López RN 12:18:21 Fentanyl I.V. 50 Pelon Nelia for sedation mcg Yossi López RN 12:18:35 Versed I.V. 1 mg Pelon Nelia for sedation Yossi López RN 12:20:11 Fentanyl I.V. 50 Pelon Nelia for sedation mcg Yossi López RN 12:20:26 Versed I.V. 1 mg Pelon Nelia for sedation Yossi López RN 12:22:15 Fentanyl I.V. 50 Pelon Nelia for sedation mcg Yossi López RN 12:22:22 Versed I.V. 1 mg Pelon Nelia for sedation Yossi López RN 12:24:07 Fentanyl I.V. 25 Pelon Nelia for sedation mcg Yossi López RN 12:24:10 Heparin Bolus I.V. 4000 Pelon Nelia for dose units Yossi López RN anticoagulation verified with dr sy 12:33:13 Fentanyl I.V. 25 Pelon Nelia for sedation mcg Yossi López RN Procedure Log Time Note 11:37:55 Diagnostic Cath Status : Elective 11:38:37 Time tracking: Regular hours 11:38:41 Plan of Care:Hemodynamics will remain stable., Cardiac rhythm will remain stable., Comfort level will be maintained., Respiratory function will remain adequate., Patient/ family verbilizes understanding of procedure., Procedure tolerated without complication., Recovers from procedure without complications.. 11:44:19 Lab Result : Hemoglobin 13.8 g/dl 11:44:19 Lab Result : Hematocrit 40.7 % 11:44:19 Lab Result : BUN 18 mg/dl :44:19 Lab Result : Creatinine 0.7 mg/dl 11:45:25 Patient received from Pre/Post Procedure Room to CCL 2 Alert and oriented. Tansferred to table in Supine position. 11:45:28 Warm blankets applied, and kingston hugger turned on for patient comfort. 11:45:29 Correct patient and procedure confirmed by team. 11:45:30 Signed procedure consent form obtained from patient. 11:45:31 ECG and BP/O2 sat monitors applied to patient. 11:51:20 Vital chart was started 11:56:53 Baseline sample Acquired. 11:57:00 Rhythm: sinus rhythm 11:57:02 Full Disclosure recording started 11:57:12 Oxygen 2 l/min NC was administered by Nelia López RN; Per physician; 11:57:19 Heparin Flush Bag (1000units/500ml NS) 2 bags added to field was administered by Pelon Sy MD; used for procedure; 11:57:27 Lidocaine 2% 20ml vial added to field was administered by Pelon Sy MD; used for procedure; 11:59:06 H&P Date Dictated: 02/09/2017 Within 30 days and on chart., H&P Addendum completed by physician on day of procedure. (MUST COMPLETE FOR ALL OUTPATIENTS). 11:59:09 Pre-procedure instructions explained to patient. 11:59:10 Pre-op teaching completed and patient verbalized understanding. 11:59:12 Family in patients room. 11:59:15 Patient NPO since Midnight. 11:59:35 Patient allergic to Other allergyCortico-Steroids 11:59:37 Is the patient allergic to Iodine/contrast media? No. 11:59:39 Is patient on blood thinner?Yes 11:59:41 ACC The patient was administered the following blood thiners within the last 24 hours: ACCPlavix 11:59:51 Patient diabetic? No. 11:59:55 Previous problem with sedation/anesthesia? No ? 11:59:56 Snore? Yes 11:59:57 Sleep apnea? No 11:59:58 Deviated septum? No 11:59:59 Opens mouth fully? Yes 12:00:00 Sticks out tongue? Yes 12:00:03 Airway obstruction? No ? 12:00:05 Dentures? No ? 12:00:09 Pre procedure: right dorsailis pedis pulse 0-Absent 12:00:15 Pre procedure: left dorsailis pedis pulse 2+ Normal; easily identifiable; not easily obliterated 12:00:17 Patient pain scale 0/10 ?. 12:00:27 IV patent on arrival in left hand with 0.9% NaCl at O. 12:00:52 Lab results completed and on chart. 12:00:56 Bilateral groins area was prepped with chlora-prep and draped in sterile fashion 12:00:56 Alarms reviewed by R. N. 12:00:57 Sharps counted by scrub and verified by R.N. 12:01:02 Use device set Femoral Dx 12:01:03 Acist Syringe opened to sterile field. 12:01:03 Bag Decanter opened to sterile field. 12:01:04 Medline Cath Pack opened to sterile field. 12:01:04 Terumo 5Fr [place] Sheath opened to sterile field. 12:01:05 St Remy 260cm J .035 wire opened to sterile field. 12:01:06 Acist Hand Control opened to sterile field. 12:01:06 Acist Manifold opened to sterile field. 12:01:07 Diagnostic Infinity 5Fr Multipack catheter opened to sterile field. 12:01:07 Tegaderm 4 x 4 opened to sterile field. 12:04:41 Patient Height : 157.48 cm 12:04:44 Patient Weight : 66.68 kg 12:06:38 Physician paged 12:16:05 Final Timeout: patient, procedure, and site verified with staff and physician. All members of the team are in agreement. 12:16:07 Right groin site verified by team. 12:16:10 Physical assessment completed. ASA score P 2 - A patient with mild systemic disease as per Pelon Sy MD. 12:16:13 Sedation plan: IV Moderate Sedation Versed, Fentanyl 12:16:15 Versed 1 mg I.V. was administered by Nelia López RN; for sedation; 12:16:20 Fentanyl 50 mcg I.V. was administered by Nelia López RN; for sedation; 12:17:38 Procedure started. 12:17:44 Local anesthetic to left femerol artery with Lidocaine 2% by Pelon Sy MD.INITIAL ACCESS ONLY 12:18:21 Fentanyl 50 mcg I.V. was administered by Nelia López RN; for sedation; 12:18:35 Versed 1 mg I.V. was administered by Nelia López RN; for sedation; 12:19:08 A 6 Fr Short sheath was inserted into the Left Femoral artery 12:19:18 A Cordis 5Fr Pigtail Catheter (MP) was advanced over the wire and used for LV Angiography. 12:19:44 LV gram done using CORDOVA 12:19:48 Injector settings: Ml/sec: 10, Volume: 20, 12:19:52 EF : 60 % 12:19:59 Catheter removed. 12:20:11 Fentanyl 50 mcg I.V. was administered by Nelia López RN; for sedation; 12:20:26 Versed 1 mg I.V. was administered by Nelia López RN; for sedation; 12:20:40 Terumo 6Fr [place] Destination Sheath opened to sterile field. 12:20:40 Terumo ANGLE 260cm glide wire opened to sterile field. 12:22:15 Fentanyl 50 mcg I.V. was administered by Nelia López RN; for sedation; 12::22 Versed 1 mg I.V. was administered by Nelia López RN; for sedation; 12::22 A Cordis 5Fr JL 4.0 Catheter (MP) was advanced over the wire and used for Left Coronary Angiography. 12:24:06 Catheter removed. 12:24:07 Fentanyl 25 mcg I.V. was administered by Nelia López RN; for sedation; 12:24:10 Heparin Bolus 4000 units I.V. was administered by Nelia López RN; for anticoagulation; dose verified with dr sy 12:24:11 A Cordis 5Fr 3DRC Catheter (MP) was advanced over the wire and used for Right Coronary Angiography. 12:25:18 Catheter removed. 12:25:43 Exchange [place]oden wire advanced. 12:27:02 A Diagnostic 5Fr IMT Catheter was advanced over the wire and used for Procedure. 12:31:03 Catheter exchanged over wire. 12:31:10 Sheath upsized to a 6 Fr Long. 12:31:30 Terumo 5FR STRAIGHT 100CM glide catheter opened to sterile field. 12:32:14 Straight glide catheter advanced to Rt Popliteal artery 12:33:13 Fentanyl 25 mcg I.V. was administered by Nelia López RN; for sedation; 12:35:16 [facility] [employer] Choice PT Extra Support J 300cm .014 gu opened to sterile field. 12:36:28 Choice PT ES wire advanced. 12:36:43 Catheter exchanged over wire. 12:37:24 Procedure type changed to Cath procedure, Diagnostic procedure, LHC, LHC w/Coronaries, Miscellaneous Procedures, Moderate Sedation up to 45 minutes, Peripheral vascular Intervention, Stent, Stent-Fem/Pop w/ather w/plasty 12:37:45 Inflation number: 1 A Saber 4.0 x 8 x 150 balloon was prepped and advanced across the Popliteal, Right, then inflated to 9 LEA for 0:06 (min:sec). 12:38:14 Inflation number: 2 The Saber 4.0 x 8 x 150 balloon was reinflated across the Popliteal, Right, to 9 LEA for 0:14 (min:sec). 12:40:49 Balloon removed over the wire. 12:41:44 Cordis SMART Flex 5 X 100 X 120 stent was deployed across Popliteal, Right . 12:42:12 Stent catheter was removed intact over wire. 12:43:07 Inflation number: 3 The Saber 4.0 x 8 x 150 balloon was reinflated across the Popliteal, Right, to 13 LEA for 0:10 (min:sec). 12:43:30 Inflation number: 4 The Saber 4.0 x 8 x 150 balloon was reinflated across the Popliteal, Right, to 13 LEA for 0:11 (min:sec). 12:43:34 Balloon removed over the wire. 12:45:54 Sheath upsized to a 6 Fr Short. 12:46:00 Sheath removed intact; hemostasis achieved with Exoseal to the Left Femoral artery. 12:48:32 Procedure ended.(Physican Out) 12:48:39 Fluoroscopy time 11.20 minutes. 12:48:42 Flurop Dose total: 483 12:48:42 Fluoroscopy dose: 483 mGy 12:48:49 Contrast amount:Isovue 300 139ml. 12:48:50 Sharps counted by scrub and verified by R.N. 12:48:52 Insertion/operative site no bleeding no hematoma. 12:48:56 Post-op/insertion site Left Femoral artery dressed using a 4 x 4 and Tegaderm. 12:49:00 Post left femerol artery:stable, clean and dry 12:49:03 Post Procedure Pulses reassessed and unchanged 12:49:05 Post-procedure physical assessment completed. ASA score P 2 - A patient with mild systemic disease as per Pelon Sy MD. 12:49:08 Post procedure rhythm: unchanged. 12:49:10 Estimated blood loss: 10 ml 12:49:11 Post procedure instruction explained to patient.Patient verbalizes understanding. 12:49:11 Patient needs reinforcement of post procedure teaching. 12:49:16 Procedure Complication : No complications 12:49:19 See physician's report for complete and final results. 12:49:51 Cordis 6Fr Exoseal opened to sterile field. 12:50:24 Terumo TORQUE DEVICE PLASTIC .038 opened to sterile field. 12:50:57 Merit BasixCompak Inflation Kit opened to sterile field. 12:52:05 Procedure and supply charges have been captured, reviewed, submitted and are correct. 12:54:13 Vital chart was stopped 12:54:15 Report given to Pre/Post Procedure Room. 12:54:19 Patient transfered to Pre/Post Procedure Room with Stretcher. 12:54:31 Procedure ended. 12:54:31 Full Disclosure recording stopped 12:54:35 End room use (Document Last) Intervention Summary Intervention Notes Time ActionType Lesion and Equipment Action# Pressure Duration Attributes Used 12:37:45 Inflate Popliteal, Saber 4.0 1 9 00:06 balloon Right x 8 x 150 balloon 12:38:14 Reinflate Popliteal, Saber 4.0 2 9 00:14 balloon Right x 8 x 150 balloon 12:41:44 Deploy self Popliteal, Cordis 1 expanding Right SMART stent Flex 5 X 100 X 120 stent 12:43:07 Reinflate Popliteal, Saber 4.0 3 13 00:10 balloon Right x 8 x 150 balloon 12:43:30 Reinflate Popliteal, Saber 4.0 4 13 00:11 balloon Right x 8 x 150 balloon Device Usage Item Name Manufacture Quantity Catalog Number Hospital Part Current Minim al Lot# / Charge Number Stock Stock Serial# Code Acist Acist 1 26972 [id number] 777876 [id number] 20 Syringe [employer] Inc Bag Microtek 1 2002S [id number] 03857 712877 5 DecPrizeBox™ Inc. Medline Cardinal 1 [id number] 170839 95307 741636 5 1Ring Terumo 5Fr Terumo 1 [id number] 445463 345816 167341 [address] Remy 1 489321 636230 142754 448916 30 260cm J .035 wire Acist Hand Acist 1 39039 903304 446769 639673 5 Control Medical Systems Inc Acist Acist 1 29876 328405 443842 618240 5 Manifold Medical Systems Inc Diagnostic Cardinal 1 [id number] 951893 23713 358781 30 Infinity Health 5Fr Multipack catheter Tegaderm 4 3M 1 1626W 115089 883990 748721 5 x 4 Cordis 5Fr Cardinal 1 [id number] 5 Pigtail Health Catheter (MP) Terumo 6Fr Terumo 1 RSR01 327497 24749 108751 5 [place] Destination Sheath Terumo Terumo 1 [id number] 717183 836515 534004 5 ANGLE 260cm glide wire Cordis 5Fr Cardinal 1 266258 5 JL 4.0 Health Catheter (MP) Cordis 5Fr Cardinal 1 007087 5 3DRC Health Catheter (MP) Diagnostic [facility] 1 [id number] 847906 519814 85793 5 5Fr IMT Scientific Catheter Terumo 5FR Terumo 1 CG506 960364 73530 624518 4 STRAIGHT 100CM glide catheter [facility] Sci [facility] 1 [id number] 507115 338652 060616 5 Choice PT Scientific Extra Support J 300cm .014 gu Saber 4.0 x Cardinal 1 [id number] 992359 824131 357173 5 8 x 150 Health balloon Cordis Cardinal 1 [id number] 813895 433219 0 83687 SMART Flex Health 5 X 100 X 120 stent Cordis 6Fr Cardinal 1 EX600 416559 146659 035074 10 Exoseal Health Terumo [facility] 1 TD01 111182 726718 495287 5 TORQUE Scientific DEVICE PLASTIC .038 Merit Merit 1 SD8381 769707 056508 895487 15 [facility] Medical Inflation Kit Signature Audit [place] Stage Time Signature Unsigned Intra-Procedure 02/16/2017 Kim 12:54:49 PM Counts RT(R) Signatures Monitor : Kim Signature : Counts RT Date : Time : [facility] [address] [facility], [place] [address]
[2017-02-16] MEDS ORDERED: GLUCOPHAGE1000 MG PO (10:19)
[2017-02-16 10:22] LABS: BASOPHILS 0.1 % (0-2); EOSINOPHILS 1.4 % (0-7); HEMATOCRIT 40.7 % (36.0-48.0); HEMOGLOBIN 13.8 g/dL (12-16); IMMATURE GRANULOCYTES 0.3 % (0-5); LYMPHOCYTES 29.6 % (15-50); MCH 31.3 pg (26.0-34.0); MCHC 33.9 g/dL (31.0-37.0); MCV 92.3 fL (80.0-100.0); MEAN PLATELET VOLUME 11.2 fL (7.4-10.4); MONOCYTES 6.7 % (2-11); NEUTROPHILS 61.9 % (40-80); PLATELET COUNT 241 10x3/uL (130-400); RBC 4.41 10x6/uL (4.00-5.40); RDW 13.8 % (11.5-14.5); WBC 9.3 10x3/uL (4.8-10.8)
[2017-02-16] MEDS ORDERED: ISOSORBIDE MONO60 M1 PO (10:22)
[2017-02-16] MEDS ORDERED: IBUPROFEN800 MG PO (10:23)
[2017-02-16] MEDS ORDERED: GLIMEPIRIDE4 MG PO (10:23)
[2017-02-16] MEDS ORDERED: TYLENOL W/CODEI1 TAB PO (10:24)
[2017-02-16] MEDS ORDERED: ASPIRIN81 MG PO (10:27)
[2017-02-16 10:37] LABS: CALC OSMOLALITY 280 mosm/kg (275-300); CALCIUM 9.1 mg/dL (8.5-10.1); CARBON DIOXIDE 23.2 mmol/L (21.0-32.0); CHLORIDE - SERUM 104 mmol/L (98-107); CREATININE - SERUM 0.7 mg/dL (0.6-1.3); GLUCOSE 194 mg/dL (74-106); POTASSIUM - SERUM 4.5 mmol/L (3.5-5.1); SODIUM 137 mmol/L (136-145); UREA NITROGEN 18 mg/dL (7-18); eGFR NON AFRICAN AMERICAN > 90 mL/min (90-120)
[2017-02-16 10:39] VITALS: BP 141/67; Ht 157.5 cm; Wt 66.8 kg
--- NOTE | 2017-02-16 13:15 | NUR ---
LEFT GROIN CDI, NO HEMATOMA OR BLEEDING NOTED AT SITE, AT SIDE
--- NOTE | 2017-02-16 13:45 | NUR ---
NO CHANGES IN LEFT GROIN, AT SIDE
--- NOTE | 2017-02-16 16:50 | NUR ---
PEDAL PULSES PALPATED BILATERAL-REG RATE,BILATERAL FEET WARM TO TOUCH AND PINK.
--- NOTE | 2017-02-24 10:09 | PRO ---
PATIENT:TJ CRAIG MEDICAL RECORD: [id number] : 60 LOCATION:D.CAT ADMISSION DATE: 02/16/17 PROCEDURE PERFORMED BY: TRAE FORD MD PROCEDURE DATE: 02/16/17 DATE OF PROCEDURE: 02/16/17 PROCEDURES: 1. Left heart catheterization. 2. Selective coronary angiography. 3. Left ventriculogram. INDICATIONS: Chest pain compatible with angina, coronary disease, previous multivessel PTCA and stenting. PROCEDURE IN DETAIL: After informed consent was obtained and after detailed Explanation of risks, benefits as well as alternative therapies, the patient Elected to proceed with angiogram and angioplasty. The left femoral area was Prepped and draped in normal sterile fashion. The left femoral artery was Cannulated via modified Seldinger technique with placement of 6-Wallisian sheath. All catheters exchanged through this sheath. FINDINGS: Left ventriculogram was performed in standard 30-degree CORDOVA view, reveals good cardiac wall motion throughout all segments. Overall ejection fraction estimated 60%. Selective coronary angiography: 1. Left main no significant angiographic disease. 2. LAD has previously placed stents. These are widely patent with no significant restenosis noted. No disease otherwise throughout the LAD or its branches. 3. Left circumflex has mild irregularities, but no flow limiting stenosis. 4. RCA has previously placed stents. These are widely patent with no significant restenosis noted. No disease otherwise throughout RCA or its branches. OVERALL IMPRESSION: Wide patency of the previously placed stents with preserved left ventricular function. No disease otherwise. Continue medical management of the coronary disease and cardiac risk factors. TRAE FORD MD at 1009 CC: [id number] DICTATION DATE: 02/16/17 1121 FOLDING MACHINE OPERATOR: TC 02/18/17 1121 DEP CLI 02/16/17 [facility] [address] [place] [id number]
== END 2017-02-16 17:00 | disposition home or self-care (01) ==
LOC: D.CATH 09:43
PROVIDERS: Internal Medicine Interventional Cardiology
DX: I25.10 Atherosclerotic heart disease of native coronary artery without angina pectoris (principal); Z95.5 Presence of coronary angioplasty implant and graft; Z01.812 Encounter for preprocedural laboratory examination

== ENCOUNTER 2017-02-20 22:58 | Emergency (ER) | payer MEDICAID ==
[2017-02-16 10:39] VITALS: BMI 26.9
[~2017-02-20 22:58] MED LIST changes: +ASPIRIN81 MG PO; +GLIMEPIRIDE4 MG PO; +GLUCOPHAGE1000 MG PO; +IBUPROFEN800 MG PO; +ISOSORBIDE MONO60 M1 PO; +TYLENOL W/CODEI1 TAB PO
== END 2017-02-21 01:53 | disposition home or self-care (01) ==
LOC: D.ER 22:58
DX: I73.9 Peripheral vascular disease, unspecified (principal); I10 Essential (primary) hypertension; I50.9 Heart failure, unspecified; E11.9 Type 2 diabetes mellitus without complications; F17.200 Nicotine dependence, unspecified, uncomplicated

== ENCOUNTER 2017-03-06 23:38 | Emergency (ER) | payer MEDICAID ==
[2017-02-16 10:39] VITALS: BMI 26.9
[2017-03-07 00:19] LABS: HEMATOCRIT 40.5 % (36.0-48.0); HEMOGLOBIN 13.7 g/dL (12-16); LYMPHOCYTES 43.2 % (15-50); MCH 30.2 pg (26.0-34.0); MCHC 33.8 g/dL (31.0-37.0); MCV 89.2 fL (80.0-100.0); MEAN PLATELET VOLUME 10.8 fL (7.4-10.4); NEUTROPHILS 48.9 % (40-80); PLATELET COUNT 243 10x3/uL (130-400); RBC 4.54 10x6/uL (4.00-5.40); RDW 13.6 % (11.5-14.5); WBC 9.6 10x3/uL (4.8-10.8)
[2017-03-07 00:26] LABS: ALBUMIN 3.2 g/dL (3.4-5.0); ANION GAP 14.1 mmol/L (8-16); BILIRUBIN - TOTAL 0.15 mg/dL (0.2-1.3); CALCIUM 8.5 mg/dL (8.5-10.1); CARBON DIOXIDE 23.6 mmol/L (21.0-32.0); POTASSIUM - SERUM 3.7 mmol/L (3.5-5.1); PROTEIN - SERUM 7.7 g/dL (6.4-8.2)
== END 2017-03-07 01:58 | disposition home or self-care (01) ==
LOC: D.ER 23:38
PROVIDERS: Emergency Medicine
DX: K29.00 Acute gastritis without bleeding (principal); I10 Essential (primary) hypertension; E11.9 Type 2 diabetes mellitus without complications; Z95.5 Presence of coronary angioplasty implant and graft; F17.200 Nicotine dependence, unspecified, uncomplicated

== ENCOUNTER 2017-04-06 21:04 | Emergency (ER) | payer MEDICAID ==
[2017-02-16 10:39] VITALS: BMI 26.9
[2017-04-06 23:00] LABS: CKMB 0.2 U/L (0.0-3.6)
[2017-04-06 23:01] LABS: TROPONIN-I < 0.017 ng/mL (0.000-0.060)
== END 2017-04-06 23:21 | disposition home or self-care (01) ==
LOC: D.ER 21:04
PROVIDERS: Nurse Practitioner Family
DX: R07.9 Chest pain, unspecified (principal); I10 Essential (primary) hypertension; E11.9 Type 2 diabetes mellitus without complications

== ENCOUNTER 2017-04-21 21:20 | Emergency (ER) | payer MEDICAID ==
[2017-02-16 10:39] VITALS: BMI 26.9
[2017-04-21 22:03] LABS: BASOPHILS 0.2 % (0-2); EOSINOPHILS 1.2 % (0-7); HEMATOCRIT 41.1 % (36.0-48.0); IMMATURE GRANULOCYTES 0.2 % (0-5); LYMPHOCYTES 36.3 % (15-50); MCH 30.5 pg (26.0-34.0); MCHC 34.1 g/dL (31.0-37.0); MCV 89.5 fL (80.0-100.0); MEAN PLATELET VOLUME 11.9 fL (7.4-10.4); MONOCYTES 7.2 % (2-11); NEUTROPHILS 54.9 % (40-80); RBC 4.59 10x6/uL (4.00-5.40); RDW 13.9 % (11.5-14.5); WBC 9.4 10x3/uL (4.8-10.8)
[2017-04-21 22:06] LABS: PLATELET COUNT 192 10x3/uL (130-400)
[2017-04-21 22:18] LABS: ALBUMIN 3.2 g/dL (3.4-5.0); ALKALINE PHOSPHATASE 119 U/L (46-116); ALT (SGPT) 19 U/L (10-68); BILIRUBIN - TOTAL 0.14 mg/dL (0.2-1.3); CALC OSMOLALITY 288 mosm/kg (275-300); CALCIUM 8.6 mg/dL (8.5-10.1); CARBON DIOXIDE 23.6 mmol/L (21.0-32.0); CHLORIDE - SERUM 101 mmol/L (98-107); CREATININE - SERUM 1.1 mg/dL (0.6-1.3); GLUCOSE 384 mg/dL (74-106); POTASSIUM - SERUM 3.6 mmol/L (3.5-5.1); PROTEIN - SERUM 7.5 g/dL (6.4-8.2); SODIUM 135 mmol/L (136-145); UREA NITROGEN 21 mg/dL (7-18); eGFR NON AFRICAN AMERICAN 54 mL/min (90-120)
[2017-04-21 22:29] LABS: CHOLESTEROL, TOTAL 252 mg/dL (0-200); CKMB 0.4 U/L (0.0-3.6); CREATINE KINASE 50 UL (21-215); HDL CHOLESTEROL 42 mg/dL (32-96); LDL CHOLESTEROL 173 mg/dL (0-100); LDL-HDL RATIO 4.1 ratio (1.5-3.5); TRIGLYCERIDE 189 mg/dL (30-200); TROPONIN-I < 0.017 ng/mL (0.000-0.060)
== END 2017-04-22 01:38 | disposition home or self-care (01) ==
LOC: D.ER 21:20
PROVIDERS: Emergency Medicine
DX: R07.9 Chest pain, unspecified (principal); E11.9 Type 2 diabetes mellitus without complications; I10 Essential (primary) hypertension; F17.200 Nicotine dependence, unspecified, uncomplicated

== ENCOUNTER 2017-05-04 20:45 | Emergency (ER) | payer MEDICAID ==
[2017-02-16 10:39] VITALS: BMI 26.9
== END 2017-05-05 00:44 | disposition home or self-care (01) ==
LOC: D.ER 20:45
DX: R51 Headache (principal); R42 Dizziness and giddiness; I10 Essential (primary) hypertension; E11.9 Type 2 diabetes mellitus without complications

== ENCOUNTER 2017-05-17 23:12 | Inpatient (IN) | payer MEDICAID ==
--- NOTE | ~2017-05-17 | OP ---
PATIENT NAME: TJ CRAIG MEDICAL RECORD: [id number] :60 LOCATION:D.M2 D.2129 ADMISSION DATE:05/19/17 SURGEON: TRAE FORD MD DATE OF OPERATION: 05/19/2017 PROCEDURES: 1. Stent placement, popliteal right. 2. INDUSTRIAL PSYCHOLOGY PROFESSOR, popliteal right. INDICATION: Claudication and peripheral vascular disease. PROCEDURE IN DETAIL: After informed consent was obtained and after a detailed explanation of risks, benefits as well as alternative therapies, the patient elected to proceed with angiogram and angioplasty. The left femoral area was prepped and draped in normal sterile fashion. Left femoral artery was cannulated via modified Seldinger technique with placement of a 6-Wolof [id number] sheath. All catheters exchanged through this sheath. FINDINGS: The right popliteal is 100% occluded. This is a chronic total occlusion. We were able to traverse this with a glide catheter and Glidewire combination. We ballooned this with a 5.0 balloon. This yielded suboptimal result with continued greater than 80% stenosis and no discernible distal flow. Stenting was undertaken with a 5 x 100 SMART stent. Result was 0% residual stenosis. OVERALL IMPRESSION: Successful percutaneous transluminal angioplasty, stent of the right popliteal going from 100% initial stenosis to 0% residual stenosis. EDITED PROCEDURE DATE, [place] 08/19/17 TRANSINT:[id number] Voice Confirmation ID: [id number] DOCUMENT ID: [id number] TRAE FORD MD CC: [id number] DICTATION DATE: 05/18/17 1249 CANDY SEPARATOR ENROBING: 05/18/17 1314 DIS IN 05/20/17 [facility] [address] [place] [address]
--- NOTE | ~2017-05-17 | HEMODYNAMI ---
PATIENT:TJ CRAIG MEDICAL RECORD: [id number] : 60 [id number] ADMISSION DATE: 05/19/17 Generatedon:05/20/20179:28 Patient name: TJ CRAIG Patient #: [id number] : 1960 Date of study: 05/20/2017 Page: Of Hemodynamic Procedure Report Patient Data Patient Demographics Procedure consent was obtained First Name: TJ Gender: Female Last Name: KIARA : 1960 [facility] Initial: ALTA Age: 57 year(s) Patient #: [id number] Race: Other SSN: [id number] Additional ID: [id number] Contact details Address: [address] [place] [address] [address] State: [place] City: [place] Zip code: [address] Past Medical History Allergies Allergen Reaction Date Comments Reported Other allergy 12/21/2016 steroids Other allergy 02/16/2017 Cortico-Steroids Admission Admission Data Admission Date: 05/19/2017 Admission Time: 16:02 Arrival Date: 05/18/2017 Arrival Time: 6:45 Admit Source: Other Insurance Payor: Private Room #: [id number] health insurance Height (in.): 67 BSA: 1.8 (m2) Height (cm.): 170.18 BMI: 23.81 (kg/m2) Weight (lbs.): 152 Weight (kg.): 68.95 Lab Results Lab Result Date: 05/20/2017 Lab Result Time: 0:00 Biochemistry Name Units Result Min Max BUN mg/dl 19 --(----)*- 7 18 Creatinine mg/dl 1.3 --(---*)-- 0.6 1.3 CBC Name Units Result Min Max Hemoglobin g/dl 13.8 --(*---)-- 13.5 17.5 Procedure Procedure Types Cath Procedure Diagnostic Procedure [facility] w/Coronaries PCI Procedure Coronary Stent Initial Miscellaneous Procedures Moderate Sedation up to 15 minutes Moderate Sedation up to 45 minutes Peripheral Cath Diagnostic Procedure Cath Peripheral Renal Arteriogram Peripheral vascular Intervention Stent Stent-Arterial Inititial Procedure Description Procedure Date Procedure Date: 05/20/2017 Procedure Start Time: 8:11 Procedure End Time: 9:15 Procedure Staff Name Function Maurisio Guthrie MD Performing Physician Everardo Fraga RN Nurse Mazin Villalobos RT Scrub Brionna Rodriguez RT Monitor Procedure Data Cath Procedure Fluoroscopy Diagnostic fluoroscopy Total fluoroscopy Time: time: 15.5 min 15.5 min Diagnostic fluoroscopy Total fluoroscopy dose: dose: 1557 mGy 1557 mGy Contrast Material Contrast Material Type Amount (ml) Isovue 300 172 Entry Location Entry Primary Successful Side Size Upsize Upsize Entry Closure Succes sful Closure Location (Fr) 1 (Fr) 2 (Fr) Remarks Device Remarks Femoral Right 5 Fr 6 Fr Exoseal artery Short Estimated blood loss: 5 ml Diagnostic catheters Device Type Used For End Catheter Placement Cordis 5Fr JL 4.0 Left Coronary Catheter (MP) Angiography Cordis 5Fr 3DRC Catheter Right Coronary (MP) Angiography Cordis 5Fr Pigtail LV Angiography Catheter (MP) Procedure Complications No complications Procedure Medications Medication Administration Route Dosage 0.9% NaCl I.V. 100 ml/hr Oxygen NC 2 l/min Heparin Flush Bag added to field 2 bags (1000units/500ml NS) Lidocaine 2% added to field 20 Versed I.V. 2 mg Fentanyl I.V. 50 mcg Fentanyl I.V. 25 mcg Versed I.V. 1 mg Angiomax (bolus) I.V. 10.5 ml Angiomax Drip (250mg/50ml NS) (Standard) Nitroglycerin IC/IA I.C. 200 mcg Hydralizine I.V. 10 mg Versed I.V. 1 mg Fentanyl I.V. 25 mcg Lopressor I.V. 5 mg Nitroglycerin IC/IA I.C. 200 mcg Fentanyl I.V. 50 mcg Plavix P.O. 300 mg Hemodynamics Rest BSA: 1.8 (m2) HGB: 13.8 (g/dl) O2 Consumption: Estimated: 167.73 (ml/min) O2 Con sumption indexed: Estimated:93.18 (ml/min/m) Heart Rate: 63 (bpm) Pressure Samples Time Site Value (mmHg) Purpose Heart Use Rate(bpm) 8:26 LV 175/-7,11 EDP 64 Gradients Valve Time Site Site Mean SEP/DFP Peak To Heart Use 1 2 (mmHg) (sec/min) Peak Rate (mmHg) (bpm) Aortic 8:27 LV AO 64 Snapshots Pre Cath Intra NCS Post Cath Vital Signs Time Heart Resp SPO2 etCO2 PS2bild NIBP (mmHg) Rhythm Pain Sedation Rate (ipm) (%) (mmHg) (mmHg) Status Level (bpm) 8:01:23 66 15 100 0 0 214/74(113) NSR 0 (11) 10(A) , No pain 8:06:18 58 14 98 0 0 176/64(104) NSR 0 (11) 10(A) , No pain 8:11:54 58 16 99 0 0 167/64(102) NSR 0 (11) 10(A) , No pain 8:16:43 60 16 98 0 0 172/68(120) NSR 0 (11) 10(A) , No pain 8:21:32 62 14 98 0 0 162/62(104) NSR 0 (11) 9(A) , No pain 8:26:21 65 14 99 0 0 156/63(110) NSR 0 (11) 9(A) , No pain 8:31:11 60 14 99 0 0 162/58(109) NSR 0 (11) 9(A) , No pain 8:36:00 61 16 100 0 0 170/63(99) NSR 0 (11) 10(A) , No pain 8:40:59 66 16 100 0 0 Measuring NSR 0 (11) 10(A) , No pain 8:42:39 68 15 99 0 0 213/75(132) NSR 0 (11) 9(A) , No pain 8:47:32 66 14 99 0 0 193/79(118) NSR 0 (11) 9(A) , No pain 8:52:23 70 14 100 0 0 173/69(113) NSR 0 (11) 9(A) , No pain 8:57:16 71 14 100 0 0 179/67(115) NSR 0 (11) 9(A) , No pain 9:02:05 70 15 100 0 0 172/66(118) NSR 0 (11) 9(A) , No pain 9:06:52 69 13 100 0 0 162/73(109) NSR 0 (11) 9(A) , No pain 9:11:45 70 15 100 0 0 175/59(109) NSR 0 (11) 10(A) , No pain Medications Time Medication Route Dose Verified Delivered Reason Notes Effectiveness by by 7:58:50 0.9% NaCl I.V. 100 Maurisio Everardo Per physician ml/hr Jerri Fraga MD RN 7:59:06 Oxygen NC 2 Everardo Everardo Per physician l/min Flakito Fraga RN RN 8:00:42 Heparin Flush added 2 Everardo Everardo used for Bag to bags Lorigan Lorigan procedure (1000units/500ml field RN RN NS) 8:00:58 Lidocaine 2% added 20ml Everardo Everardo for local to vial Lorigan Lorigan anesthetic field RN RN 8:06:21 Versed I.V. 2 mg Everardo Everardo for sedation Flakito Fraga RN RN 8:06:37 Fentanyl I.V. 50 Everardo Everardo for sedation mcg Flakito Fraga RN RN 8:16:20 Fentanyl I.V. 25 Everardo Everardo for sedation mcg Lorroger Fraga RN RN 8:16:30 Versed I.V. 1 mg Everardo Everardo for sedation Flakito Fraga RN RN 8:34:22 Angiomax (bolus) I.V. 10.5 Everardo Everardo for ml Lorigan Lorigan anticoagulation RN RN 8:35:03 Angiomax Drip Everardo Everardo (250mg/50ml NS) Flakito Fraga (Standard) RN RN 8:45:18 Nitroglycerin I.C. 200 Everardo Maurisio for IC/IA mcg Flakito Guthrie MD vasodilation RN 8:45:38 Hydralizine I.V. 10 mg Everardo Everardo for Lorigan Lorigan hypertension RN RN 8:45:52 Versed I.V. 1 mg Everardo Everardo for sedation Flakito Fraga RN RN 8:45:59 Fentanyl I.V. 25 Everardo Everardo for sedation mcg Flakito Fraga RN RN 9:02:32 Lopressor I.V. 5 mg Everardo Everardo for Lorigan Lorroger hypertension RN RN 9:11:27 Nitroglycerin I.C. 200 Everardo Maurisio for IC/IA mcg Flakito Guthrie MD vasodilation RN 9:14:37 Fentanyl I.V. 50 Everardo Maurisio for sedation mcg Flakito Guthrie MD RN 9:22:34 Plavix P.O. 300 Everardo Mcgee for mg Flakito Fraga antiplatelet RN RN therapy Procedure Log Time Note 7:31:26 Informed consent obtained and on chart 7:31:36 Diagnostic Cath Status : Elective 7:32:54 Everardo Fraga RN sent for patient. Start room use. 7:33:29 Time tracking: Regular hours 7:33:43 Plan of Care:Hemodynamics will remain stable., Cardiac rhythm will remain stable., Comfort level will be maintained., Respiratory function will remain adequate., Patient/ family verbilizes understanding of procedure., Procedure tolerated without complication., Recovers from procedure without complications.. 7:43:37 Patient received from Med II to CCL 1 Alert and oriented. Tansferred to table in Supine position. 7:43:38 Warm blankets applied, and kingston hugger turned on for patient comfort. 7:43:39 Correct patient and procedure confirmed by team. 7:43:40 ECG and BP/O2 sat monitors applied to patient. 7:46:03 Admit Source: Other 7:46:12 Arrival Date: 05/18/2017 6:45:00 AM 7:46:24 Insurance Payor : Private health insurance 7:46:43 Patient Height : 67 inches 7:46:49 Patient Weight : 152 lbs 7:47:48 Previous problem with sedation/anesthesia? No \ 7:47:51 Snore? Yes 7:47:52 Sleep apnea? No 7:47:59 Deviated septum? No 7:48:00 Opens mouth fully? Yes 7:48:01 Sticks out tongue? Yes 7:48:04 Airway obstruction? No ? 7:48:09 Dentures? No ? 7:48:17 Is the patient allergic to Iodine/contrast media? No. 7:48:19 Was the patient premedicated? No 7:48:30 Patient diabetic? Yes. 7:48:50 Is patient on blood thinner?Yes 7:48:54 ACC The patient was administered the following blood thiners within the last 24 hours: ACCPlavix 7:49:04 Full Disclosure recording started 7:49:10 H&P Date Dictated: 05/20/2017 New H&P dictated by physician.. 7:49:12 Pre-procedure instructions explained to patient. 7:49:13 Pre-op teaching completed and patient verbalized understanding. 7:49:17 Family unavailable. 7:49:19 Patient NPO since Midnight. 7:58:30 Vital chart was started 7:58:50 0.9% NaCl 100 ml/hr I.V. was administered by Everardo Fraga RN; Per physician; 7:59:06 Oxygen 2 l/min NC was administered by Everardo Fraga RN; Per physician; 7:59:16 IV started by Everardo Fraga RN inright hand with a 20 gauge IV catheter with 0.9% NaCl at KVO. 8:00:42 Heparin Flush Bag (1000units/500ml NS) 2 bags added to field was administered by Everardo Fraga RN; used for procedure; 8:00:58 Lidocaine 2% 20ml vial added to field was administered by Everardo Fraga RN; for local anesthetic; 8:02:35 Lab Result : BUN 19 mg/dl 8:02:35 Lab Result : Creatinine 1.3 mg/dl 8:02:35 Lab Result : Hemoglobin 13.8 g/dl 8:02:43 Pre procedure: right dorsailis pedis pulse 1+ Palpable, but thready & weak; easily obliterated 8:02:45 Pre procedure: left dorsailis pedis pulse 1+ Palpable, but thready & weak; easily obliterated 8:02:47 Patient pain scale 0/10 ?. 8:02:53 Lab results completed and on chart. 8:02:58 Right groin area was prepped with chlora-prep and draped in sterile fashion 8:02:59 Alarms reviewed by R. N. 8:03:02 Sharps counted by scrub and verified by R.N. 8:03:04 Physician arrived 8:03:04 --------ALL STOP TIME OUT------ 8:03:05 Final Timeout: patient, procedure, and site verified with staff and physician. All members of the team are in agreement. 8:03:07 Right groin site verified by team. 8:03:09 Physical assessment completed. ASA score P 2 - A patient with mild systemic disease as per Maurisio Guthrie MD. 8:03:13 Sedation plan: IV Moderate Sedation Versed, Fentanyl 8:03:17 Use device set Femoral Dx 8:03:18 Acist Syringe opened to sterile field. 8:03:18 Bag Decanter opened to sterile field. 8:03:19 Medline Cath Pack opened to sterile field. 8:03:19 Terumo 5Fr [place] Sheath opened to sterile field. 8:03:20 St Remy 260cm J .035 wire opened to sterile field. 8:03:21 Acist Hand Control opened to sterile field. 8:03:21 Acist Manifold opened to sterile field. 8:03:22 Diagnostic Infinity 5Fr Multipack catheter opened to sterile field. 8:03:22 Tegaderm 4 x 4 opened to sterile field. 8:05:33 Baseline sample Acquired. 8:06:21 Versed 2 mg I.V. was administered by Everardo Fraga RN; for sedation; 8:06:37 Fentanyl 50 mcg I.V. was administered by Everardo Fraga RN; for sedation; 8:10:50 Procedure started. 8:11:28 Local anesthetic to right femoral artery with Lidocaine 2% by Maurisio Guthrie MD.INITIAL ACCESS ONLY 8:11:58 Cook 4Fr Micropuncture Set ([id number]) opened to sterile field. 8:12:59 A 5 Fr sheath was inserted into the Right Femoral artery 8:16:20 Fentanyl 25 mcg I.V. was administered by Everardo Fraga RN; for sedation; 8:16:30 Versed 1 mg I.V. was administered by Everardo Fraga RN; for sedation; 8:17:33 A Cordis 5Fr JL 4.0 Catheter (MP) was advanced over the wire and used for Left Coronary Angiography. 8:18:25 Injector settings: Ml/sec: 3, Volume: 6, 8:21:18 Catheter removed. 8:21:28 A Cordis 5Fr 3DRC Catheter (MP) was advanced over the wire and used for Right Coronary Angiography. 8:22:09 RCA angiography performed. 8:22:15 Injector settings: Ml/sec: 3, Volume: 6, 8:24:32 Bilateral renal angiography performed. 8:24:41 Injector settings: Ml/sec: 3, Volume: 6, 8:25:18 Catheter removed. 8:25:24 A Cordis 5Fr Pigtail Catheter (MP) was advanced over the wire and used for LV Angiography. 8:26:49 LV hemodynamics recorded. 8::51 LV gram done using CORDOVA 8::53 Injector settings: Ml/sec: 5, Volume: 15, 8:27:35 Catheter removed. 8:28:10 ePARixCompak Inflation Kit opened to sterile field. 8:28:10 Zamudio BMW [place] II J-Tip 190cm wire opened to sterile field. 8:28:16 Terumo 6Fr [place] Sheath opened to sterile field. 8:29:51 Copilot Bleedback Control Valve opened to sterile field. 8:31:28 [employer] Runway 6Fr ART 3.5 SH guide catheter opened to sterile field. 8:31:34 Proceeding to intervention. 8:31:42 Sheath upsized to a 6 Fr Short. 8:31:50 6 Fr art 3.5 sh guide catheter was inserted over the wire 8:32:00 BMInsideView wire advanced. 8:33:51 Wire advanced across lesion. 8:34:22 Angiomax (bolus) 10.5 ml I.V. was administered by Everardo Fraga RN; for anticoagulation; 8:35:03 Angiomax Drip (250mg/50ml NS) (Standard) was administered by Everardo Fraga RN; ; 8:36:38 Inflation Number: 1 A Clive RX 2.5 x 15 stent was prepped and advanced across the Mid RCA. The stent was deployed at 14 LEA for 0:10 (min:sec). 8:39:42 Inflation number: 2 The stent balloon was then re-inflated across the Mid RCA to 14 LEA for 0:10 (min:sec). 8:40:25 Stent catheter was removed intact over wire. 8:40:28 Wire removed. 8:40:29 Guide catheter removed. 8:42:03 Jukelytronic Launcher 6Fr KRAIG 90 guide catheter opened to sterile field. 8:43:44 6 Fr kraig 90 guide catheter was inserted over the wire 8:45:04 Zero performed for pressure channel P1 8:45:18 Nitroglycerin IC/IA 200 mcg I.C. was administered by Maurisio Guthrie MD; for vasodilation; 8:45:38 Hydralizine 10 mg I.V. was administered by Everardo Fraga RN; for hypertension; 8:45:52 Versed 1 mg I.V. was administered by Everardo Fraga RN; for sedation; 8:45:59 Fentanyl 25 mcg I.V. was administered by Everardo Fraga RN; for sedation; 8:47:08 Zamudio BMW [place] 2 J-tip 300cm 0.014 guide wir opened to sterile field. 8:47:09 bmw wire advanced. 8:50:26 Procedure type changed to Cath procedure, Diagnostic procedure, LHC, LHC w/Coronaries, PCI procedure, Coronary Stent Initial, Miscellaneous Procedures, Moderate Sedation up to 15 minutes, Moderate Sedation up to 45 minutes, Peripheral Cath Diagnostic Procedure, Cath Peripheral, Renal Arteriogram, Peripheral vascular Intervention, Stent, Stent-Arterial Inititial 8:54:40 Inflation number: 1 A [employer] Flextome Cutting 3.5 x 10 balloon was prepped and advanced across the Proximal Renal, Left, then inflated to 6 LEA for 1:00 (min:sec). 8:54:52 Balloon removed over the wire. 8:57:52 Inflation Number: 2 A Clive OTW 4.0 x 15 stent was prepped and advanced across the Proximal Renal, Left. The stent was deployed at 16 LEA for 0:10 (min:sec). 8:58:52 Stent catheter was removed intact over wire. 8:58:53 Wire removed. 8:59:45 guide catheter redirected and engaged into right renal 9:02:32 Lopressor 5 mg I.V. was administered by Everardo Fraga RN; for hypertension; 9:02:33 bmw wire advanced. 9:03:53 Wire advanced across lesion. 9:03:58 Inflation number: 1 A Mozec Rx 4.0 x 20 balloon was prepped and advanced across the Proximal Renal, Right, then inflated to 12 LEA for 0:10 (min:sec). 9:05:21 Balloon removed over the wire. 9:08:38 Inflation Number: 2 A Rosebud OTW 4.0 x 15 stent was prepped and advanced across the Proximal Renal, Right. The stent was deployed at 15 LEA for 0:10 (min:sec). 9:09:36 Stent catheter was removed intact over wire. 9:10:30 Wire removed. 9:10:33 Guide catheter removed. 9:11:27 Nitroglycerin IC/IA 200 mcg I.C. was administered by Maurisio Guthrie MD; for vasodilation; 9:12:30 Cordis 6Fr Exoseal opened to sterile field. 9:13:08 Sheath removed intact; hemostasis achieved with Exoseal to the Right Femoral artery. 9:13:12 Procedure ended.(Physican Out) 9:14:18 Fluoroscopy time 15.50 minutes. 9:14:29 Fluoroscopy dose: 1557 mGy 9:14:29 Flurop Dose total: 1557 9:14:35 Contrast amount:Isovue 300 172ml. 9:14:37 Fentanyl 50 mcg I.V. was administered by Maurisio Guthrie MD; for sedation; 9:14:37 Sharps counted by scrub and verified by R.N. 9:14:39 Insertion/operative site no bleeding no hematoma. 9:14:44 Post-op/insertion site Right Femoral artery dressed using a 4 x 4 and Tegaderm. 9:14:47 Post right femoral artery:stable 9:14:49 Post Procedure Pulses reassessed and unchanged 9:14:52 Post procedure rhythm: unchanged. 9:14:55 Estimated blood loss: 5 ml 9:14:57 Post procedure instruction explained to patient.Patient verbalizes understanding. 9:14:57 Patient needs reinforcement of post procedure teaching. 9:14:58 Procedure and supply charges have been captured, reviewed, submitted and are correct. 9:15:07 Procedure Complication : No complications 9:15:10 Vital chart was stopped 9:15:11 See physician's report for complete and final results. 9:15:13 Report given to [facility]. 9:15:16 Patient transfered to [facility] with Stretcher. 9:15:19 Procedure ended. 9:15:19 Full Disclosure recording stopped 9:15:28 ACC-PCI Only Patient was given prescriptions, or instructed by Maurisio Guthrie MD to start/continue the following medications upon discharge: Plavix 9:15:30 End room use (Document Last) 9:22:34 Plavix 300 mg P.O. was administered by Everardo Fraga RN; for antiplatelet therapy; Intervention Summary Intervention Notes Time ActionType Lesion and Equipment Action# Pressure Duration Attributes Used 8:36:38 Place stent Mid RCA Clive RX 1 14 00:10 2.5 x 15 stent 8:39:42 Reinflate Mid RCA Clive RX 2 14 00:10 stent 2.5 x 15 balloon stent 8:54:40 Inflate Proximal [place] 1 6 01:00 balloon Renal, Left Sci Flextome Cutting 3.5 x 10 balloon 8:57:52 Place stent Proximal Rosebud OTW 2 16 00:10 Renal, Left 4.0 x 15 stent 9:03:58 Inflate Proximal Mozec Rx 1 12 00:10 balloon Renal, 4.0 x 20 Right balloon 9:08:38 Place stent Proximal Clive OTW 2 15 00:10 Renal, 4.0 x 15 Right stent Device Usage Item Name Manufacture Quantity Catalog Number Hospital Part Current M inimal Lot# / Charge Number Stock Stock Serial# Code Acist Syringe Acist 1 [id number] 315179 031568 410758 2 0 [employer] Systems Inc Bag Decanter Microtek 1 2002S 982462 95793 484922 5 Medical Inc. Medline Cath Cardinal 1 [id number] 773447 67490 466982 5 Showcase Gig Terumo 5Fr Terumo 1 [id number] 766540 490108 244109 [address] [place] Remy 1 [id number] 352348 974275 709575 3 0 J .035 wire Acist Hand Acist 1 49379 791877 483523 481385 5 Meshfire [employer] Inc Acist Acist 1 35694 078862 050778 467021 5 [place] Medical Systems Inc Diagnostic Cardinal 1 [id number] 537353 05955 025382 3 0 Infinity 5Fr Health Multipack catheter Tegaderm 4 x 3M 1 [id number] 659337 710959 764186 5 4 Cook 4Fr Cook Medical 1 [id number] 878429 341786 329378 5 Micropuncture Set (W52890) Cordis 5Fr JL Cardinal 1 [id number] 5 4.0 Catheter Health (MP) Cordis 5Fr Cardinal 1 575591 5 3DRC Catheter Health (MP) Cordis 5Fr Cardinal 1 795837 5 Pigtail Health Catheter (MP) Merit Merit 1 [id number] 237089 073599 421233 1 5 [employer] Medical Inflation Kit Zamudio BMW Zamudio 1 [id number] 150836 71440 512076 5 [place] II Vascular J-Tip 190cm wire Terumo 6Fr Terumo 1 [id number] 887027 722211 759250 4 0 [place] Sheath Copilot Zamudio 1 5509516 729591 376947 832385 5 Bleedback Vascular Control Valve [place] Sci [place] 1 [id number] 000689 382567 595366 [address] 6Fr Scientific ART 3.5 SH guide catheter Rosebud RX 2.5 x Medtronic 1 [id number] 659563 6082387 022530 5 [id number] 15 stent Medtronic Medtronic 1 [id number] 161200 05542 096851 1 Launcher 6Fr KRAIG 90 guide catheter Zamudio BMW Zamudio 1 [id number] 561702 116453 148653 5 [place] 2 Vascular J-tip 300cm 0.014 guide wir [place] Sci [place] 1 [id number] 629544 069425 5573731 1 [id number] Flextome Scientific Cutting 3.5 x 10 balloon Clive OTW 4.0 Medtronic 2 [id number] 956555 9858307 523848 5 [id number] x 15 stent [id number] Mozec Rx 4.0 Cardinal 1 [id number] 514515 30809 362526 5 [id number] x 20 balloon Health Cordis 6Fr Cardinal 1 EX600 699859 279979 685150 1 0 [facility] Health Signature Audit Superior Stage Time Signature Unsigned Intra-Procedure 05/20/2017 Brionna Rodriguez 9:28:38 AM RT(R) Signatures Monitor : Brionna Rodriguez RT Signature : Date : Time : [facility] [address] [place] [address]
[2017-05-18] VITALS (9 sets, daily range): BP systolic 130–194; BP diastolic 52–91; BMI 26.6; BMI 26.5
[2017-05-18 00:14] LABS: HEMATOCRIT 40.9 % (36.0-48.0); HEMOGLOBIN 14.1 g/dL (12-16); LYMPHOCYTES 38.9 % (15-50); MCH 30.4 pg (26.0-34.0); MCHC 34.5 g/dL (31.0-37.0); MCV 88.1 fL (80.0-100.0); MEAN PLATELET VOLUME 11.4 fL (7.4-10.4); NEUTROPHILS 55.2 % (40-80); PLATELET COUNT 217 10x3/uL (130-400); RBC 4.64 10x6/uL (4.00-5.40); RDW 13.3 % (11.5-14.5); WBC 10.2 10x3/uL (4.8-10.8)
[2017-05-18 00:18] LABS: APTT 28.1 SECONDS (22.8-39.4); INR 0.91 (0.85-1.17); PROTIME 12.1 SECONDS (11.6-15.0)
[2017-05-18 00:27] LABS: ALBUMIN 3.1 g/dL (3.4-5.0); ANION GAP 12.9 mmol/L (8-16); BILIRUBIN - TOTAL 0.13 mg/dL (0.2-1.3); CALCIUM 8.7 mg/dL (8.5-10.1); CARBON DIOXIDE 29.1 mmol/L (21.0-32.0); CREATININE - SERUM 1.2 mg/dL (0.6-1.3); PROTEIN - SERUM 7.4 g/dL (6.4-8.2)
[2017-05-18 06:14] LABS: UDS - AMPHET NEGATIVE QUAL (NEGATIVE); UDS - BARB NEGATIVE QUAL (NEGATIVE); UDS - BENZO NEGATIVE QUAL (NEGATIVE); UDS - COCAINE NEGATIVE QUAL (NEGATIVE); UDS - OPIATE NEGATIVE QUAL (NEGATIVE); UDS - PCP NEGATIVE QUAL (NEGATIVE); UDS - THC NEGATIVE QUAL (NEGATIVE)
[2017-05-18 06:42] LABS: APPEARANCE CLEAR (CLEAR); BILIRUBIN NEGATIVE (NEGATIVE); COLOR YELLOW (YELLOW); GLUCOSE 100 mg/dL (NEGATIVE); KETONE NEGATIVE (NEGATIVE); NITRITE NEGATIVE (NEGATIVE); PROTEIN NEGATIVE (NEGATIVE); SPECIFIC GRAVITY 1.015 (1.005-1.020); UROBILINOGEN NORMAL (NORMAL)
[2017-05-18 07:24] LABS: CKMB 0.4 U/L (0.0-3.6); CREATINE KINASE 34 UL (21-215)
[2017-05-18 07:25] LABS: TROPONIN-I < 0.017 ng/mL (0.000-0.060)
--- NOTE | 2017-05-18 08:23 | NUR ---
PT ARRIVED TO UNIT FROM ER. PT A&O RESTING QUIETLY IN BED. RR NONLABORED ON RA. LUNG SOUNDS CTA THROUGHOUT ALL LOBES. PT C/O LEFT SIDED WEAKNESS BUT NO DEFICITS NOTED WHEN ASSESSING VIGOUREUX PRINTER/STRENGTH JUST GENERALIZED WEAKNESS. S1S2 NOTED IRREGULAR. PT C/O LEFT SIDED CHEST TIGHTNESS AND DOES HAVE HX OF STENTS BY , WILL SEE ABOUT CONSULT. PT UNSURE ABOUT ALL OF HER HOME MEDS BUT STATES SHE WILL HAVE HER BRING THEM UP. PT NOW EATING BREAKFAST AND DENIES ANY CURRENT NEEDS. WILL CONTINUE WITH ADMISSION WORK-UP.
--- NOTE | 2017-05-18 09:05 | NUR ---
TELEMETRY APPLIED AND EKG COMPLETED. SLIGHT T WAVE ABNORMALITY NOTED HOWEVER POTASSIUM LEVEL IS ALTERED WELL. PT C/O SEVERE HEADACHE AND BP UP AT 194/74 AND CP TIGHTNESS TOWARDS LEFT SIDE. PROVIDED PT WITH PRN MORPHINE AND CALLED PRIMARY FOR PRN BP MEASURES. PT VOICED THANKS AND DENIES ANY FURTHER NEEDS AT THIS TIME. CL IN REACH, BED IN LOWEST, SIDE RAILS X2 WILL CPOC.
[2017-05-18 11:40] LABS: CHOL - HDL RATIO 6.2 ratio (2.3-4.1); LDL-HDL RATIO 4.3 ratio (1.5-3.5)
[2017-05-18 12:27] LABS: BASOPHILS 0.2 % (0-2); HEMATOCRIT 42.2 % (36.0-48.0); HEMOGLOBIN 14.2 g/dL (12-16); IMMATURE GRANULOCYTES 0.2 % (0-5); LYMPHOCYTES 38.6 % (15-50); MCH 30.3 pg (26.0-34.0); MCHC 33.6 g/dL (31.0-37.0); MEAN PLATELET VOLUME 11.5 fL (7.4-10.4); MONOCYTES 6.6 % (2-11); NEUTROPHILS 53.4 % (40-80); PLATELET COUNT 216 10x3/uL (130-400); RBC 4.69 10x6/uL (4.00-5.40); RDW 13.6 % (11.5-14.5); WBC 9.2 10x3/uL (4.8-10.8)
--- NOTE | 2017-05-18 12:45 | NUR ---
FSBS 302. PT REC'D 8 UNITS PER SS INSULIN. AT BEDSIDE TO ASSESS PT. ONE TIME DOSE ORDER OF METOPROLOL PUSH GIVEN FOR HTN. PT SITTING UP IN BED READY TO EAT LUNCH. DENIES ANY CURRENT PAIN OR NEEDS. CL IN REACH. WILL CPOC.
[2017-05-18 12:53] LABS: ANION GAP 10.9 mmol/L (8-16); CALCIUM 8.6 mg/dL (8.5-10.1); CARBON DIOXIDE 29.8 mmol/L (21.0-32.0); CREATININE - SERUM 1.2 mg/dL (0.6-1.3); POTASSIUM - SERUM 3.7 mmol/L (3.5-5.1)
[2017-05-18 12:56] LABS: CKMB 0.1 U/L (0.0-3.6); CREATINE KINASE 43 UL (21-215); TROPONIN-I < 0.017 ng/mL (0.000-0.060)
--- NOTE | 2017-05-18 13:00 | NUR ---
BP RECHECKED AND DOWN TO 160/78 AFTER IV PUSH TX. PT STATES RELIEF FROM KENNEY AND IS RESTING IN BED. NO CURRENT NEEDS. WILL CPOC.
[2017-05-18 13:01] LABS: CKMB 0.1 U/L (0.0-3.6); CREATINE KINASE 37 UL (21-215); TROPONIN-I < 0.017 ng/mL (0.000-0.060)
--- NOTE | 2017-05-18 14:34 | NUR ---
CALLED INQUIRING ABOUT PTS BP IF IT HAS WENT DOWN, ALSO STATES HE WANTS IT CHECKED HOURLY AND REPORTED TO HIM UNTIL IN RANGE, WILL FOLLOW ORDERS AND REPORT BPS. PT RESTING IN BED WITH SPOUSE AT BEDSIDE. DENIES ANY CURRENT CP OR NEEDS. CL IN REACH, BED IN LOWEST, SIDE RAILS X2. WILL CPOC.
--- NOTE | 2017-05-18 15:44 | NUR ---
PT C/O BEING HOT AND DIAPHORETIC C/O THE ROOM HOT. AIR IS ON AND BLOWING OUT COLD AIR. REMOVED BLANKETS FROM PT. PT DOES FEEL WARM BUT IS AFEBRILE. PT STATES HER KENNEY IS COMING BACK AND SHE GOT DIZZY WHEN SHE GOT UP TO USE THE BR. FSBS 173. PROVIDED PT WITH FRESH ICE WATER AND OFFERED ICE PACK BUT PT REFUSED. BP ON RIGHT ARM 140/62 HOWEVER BP ON LEFT ARM 155/77 WILL NOTIFY REQUESTED AND CTM.
[2017-05-18 19:02] LABS: CKMB 0.1 U/L (0.0-3.6); CREATINE KINASE 36 UL (21-215)
[2017-05-18 19:03] LABS: TROPONIN-I < 0.017 ng/mL (0.000-0.060)
[2017-05-18] MEDS ORDERED: ZOLOFT100 MG PO (19:38)
[2017-05-18] MEDS ORDERED: ALDACTONE25 MG PO (19:40)
[2017-05-19] VITALS (7 sets, daily range): BP systolic 146–189; BP diastolic 52–77
[2017-05-19 05:54] LABS: BASOPHILS 0.3 % (0-2); EOSINOPHILS 1.5 % (0-7); HEMATOCRIT 40.9 % (36.0-48.0); HEMOGLOBIN 13.8 g/dL (12-16); IMMATURE GRANULOCYTES 0.1 % (0-5); LYMPHOCYTES 32.1 % (15-50); MCH 30.4 pg (26.0-34.0); MCHC 33.7 g/dL (31.0-37.0); MCV 90.1 fL (80.0-100.0); MEAN PLATELET VOLUME 11.6 fL (7.4-10.4); MONOCYTES 8.1 % (2-11); NEUTROPHILS 57.9 % (40-80); PLATELET COUNT 227 10x3/uL (130-400); RBC 4.54 10x6/uL (4.00-5.40); RDW 13.7 % (11.5-14.5); WBC 7.3 10x3/uL (4.8-10.8)
[2017-05-19 06:14] LABS: ANION GAP 9.9 mmol/L (8-16); CARBON DIOXIDE 29.8 mmol/L (21.0-32.0); CREATININE - SERUM 1.3 mg/dL (0.6-1.3); POTASSIUM - SERUM 3.7 mmol/L (3.5-5.1)
--- NOTE | 2017-05-19 11:02 | NUR ---
PT TRANSFERED TO CT VIA WHEELCHAIR. NAD NOTED.
--- NOTE | 2017-05-19 11:28 | EC ---
PATIENT:TJ CRAIG DATE OF SERVICE: 05/18/17 SEX: F MEDICAL RECORD: [id number] DATE OF : 60 LOCATION:D. D.212 AGE OF PATIENT: 57 ADMISSION DATE: 05/18/17 REFERRING PHYSICIAN: INTERPRETING PHYSICIAN: JORDAN OLOMIS MD ECHOCARDIOGRAM REPORT ECHO CHARGES 4 ECHO COMPLETE CLINICAL DIAGNOSIS: CHEST PAIN, HTN ECHOCARDIOGRAPHIC MEASUREMENTS (adult normal given) AC root (d.<3.7cm) 3.0 cm LV Septum d (<1.2 cm> 1.8 cm Valve Excursion 1.6 cm LV Septum (systole) 2.1 cm Left Atria (s.<4.0cm> 3.6 cm LVPW d(<1.2cm) 1.6 cm RV (d.<2.3cm) 2.8 cm LVPW (sytole) 2.2 cm LV diastole(<5.6CM) 4.4 cm MV E-F(>70mm/sec) cm LV systole 2.6 cm LVOT Diameter 1.9 cm MV exc.(>10mm) cm Est.ejection fraction (50-75%) % Pericardial Effusion N DOPPLER: LVIT cm/sec A 92.0 cm/sec E 77.0 cm/sec LA cm/sec RVSP 31 mmHg LVOT 104 cm/sec AOP1/2T m/s Asc. Ao 122 cm/sec RVOT 77 cm/sec RA cm/sec PA 96 cm/sec AV Gradient Peak 5.99 mmHg AV Mean 3.18 mmHg AV Area 2.1 cm MV Gradient Peak 4.45 mmHg MV Mean 1.55 mmHg MV Area cm COMMENTS: Mill Tender Second Operator: 2 REBEKAH MARTINEZ Family Educator: 4 Dr. Loomis TAPE# PACS DATE OF SERVICE: 05/18/2017 Transthoracic Echocardiogram FINDINGS: 1. The left ventricle has moderate concentric left ventricular hypertrophy with diastolic dysfunction. No regional wall motion abnormalities. The overall ejection fraction is well preserved and even hyperdynamic, had an EF of 65 to 70%. 2. The right ventricle is normal size and normal function. ECHOCARDIOGRAM REPORT [id number] TJ CRAIG 3. The tricuspid valve has mild tricuspid regurgitation with normal right ventricular systolic pressure. 4. The mitral valve has mild mitral regurgitation. 5. The aortic valve is normal. 6. The right atrium is normal size and normal function. 7. The right ventricle is normal size and normal function. 8. The pulmonic valve is normal. 9. There is no pericardial effusion. Conclusion: The patient has evidence of hypertensive heart disease with preserved even hyperdynamic left ventricular ejection fraction. TRANSINT:[id number] Voice Confirmation ID: [id number] DOCUMENT ID: [id number] JORDAN LOOMIS MD at 1128 CC: [id number] DICTATION DATE: 05/18/17 164 ORACLE DEVELOPER: 05/18/172057 ADM IN [facility] [address] [id number]
--- NOTE | 2017-05-19 12:34 | NUR ---
MEDICATIONS GIVEN ORDERED. ALSO ADMINISTERED 4MG OF MORPHINE FOR PAIN LEVEL OF 10/10, 4MG OF ZOFRAN PER PT REQUEST. BLOOD SUGAR OF 169, PT REFUSED TO GET 2UNITS OF INSULIN. PT DENIES ANY NEEDS AT THIS TIME. HOUSEKEEPING AT BEDSIDE, NAD NOTED, AT BEDSIDE, WILL CONTINUE TO MONTOR.
--- NOTE | 2017-05-19 21:41 | NUR ---
HS MEDS GIVEN WITH FRESH ICE WATER, BS 205, NO COVERAGE GIVEN DUE TO PT BEING NPO FOR CARDIAC CATH IN AM.
[2017-05-20] VITALS: BP 168/55
--- NOTE | 2017-05-20 01:26 | NUR ---
RESTING WITH EYES CLOSED, RESPERATIONS EVEN, NO S/S DISTRESS NOTED.
[2017-05-20 04:00] VITALS: BP 186/64
[2017-05-20 05:42] LABS: BASOPHILS 0.4 % (0-2); EOSINOPHILS 1.8 % (0-7); HEMATOCRIT 41.2 % (36.0-48.0); HEMOGLOBIN 13.7 g/dL (12-16); IMMATURE GRANULOCYTES 0.1 % (0-5); LYMPHOCYTES 32.2 % (15-50); MCH 29.8 pg (26.0-34.0); MCHC 33.3 g/dL (31.0-37.0); MCV 89.8 fL (80.0-100.0); MEAN PLATELET VOLUME 11.3 fL (7.4-10.4); NEUTROPHILS 55.5 % (40-80); PLATELET COUNT 237 10x3/uL (130-400); RBC 4.59 10x6/uL (4.00-5.40); RDW 13.7 % (11.5-14.5); WBC 7.7 10x3/uL (4.8-10.8)
[2017-05-20 05:51] LABS: CALCIUM 8.6 mg/dL (8.5-10.1); CARBON DIOXIDE 25.8 mmol/L (21.0-32.0); CREATININE - SERUM 1.2 mg/dL (0.6-1.3); POTASSIUM - SERUM 3.8 mmol/L (3.5-5.1)
--- NOTE | 2017-05-20 06:16 | NUR ---
AMMUNITION OFFICER AT BED TO GIVEN HIBICLENSE BATH.
--- NOTE | 2017-05-20 06:55 | NUR ---
CONSENTS SIGNED AND WITNESSED FOR CARDIAC CATH.
--- NOTE | 2017-05-20 07:10 | NUR ---
PRE-OP MEDS GIVEN EXCEPT BENADRYL AND NITRO PATCH. PT STATED THAT DR. LOOMIS WAS GOING TO GO THROUGH THE GROIN AND BENADRYL WAS NOT GIVEN SINCE IV WAS NOT WORKING. D/C LT HAND IV, TIP INTACT. PT DENIES ANY NEEDS AT THIS TIME. RESP EVEN AND REGULAR, NAD NOTED, WILL CONTINUE TO MONITOR.
--- NOTE | 2017-05-20 07:41 | NUR ---
PT TRANSFER TO SLIME PLANT OPERATOR HELPER, NAD NOTED.
--- NOTE | 2017-05-20 09:40 | NUR ---
PT RECEIVED BACK TO ROOM 2128, VIA BED, PT STILL DROWSY. VITAL SIGNS STABLE, NO BLEEDING OR SIGNS OF HEMATOMA NOTED TO RT GROIN. PT STATES SITE IS VERY TENDER. PT SET UP FOR FREQUENT VITALS. PT INSTRUCTED PT TO LAY FLAT FOR THE NEXT FOUR HOURS, ALSO INFORMED PT'S . PT DENIES ANY NEEDS AT THIS TIME. WILL WAIT UNTIL PT WAKES UP A LITTLE MORE TO GIVE MORNING MEDS. NAD NOTED, CALL LIGHT IN REACH, WILL CONTINUE TO MONITOR.
--- NOTE | 2017-05-20 11:29 | NUR ---
0.5MG OF DILAUDID ONE TIME DOSE FOR PAIN LEVEL OF 10/10. BLOOD SUGAR OF 192, 2UNITS OF HUMALOG PER S/S. NO BLEEDING OR HEMATOMA NOTED TO RT GROIN. PT DENIES ANY OTHER NEEDS AT THIS TIME. CALL LIGHT IN REACH, NAD NOTED, AT BEDSIDE, WILL CONTINUE TO MONITOR.
[2017-05-20 12:40] VITALS: BP 144/58
--- NOTE | 2017-05-20 14:37 | NUR ---
ADMINISTERED 4MG OF MORPHINE FOR PAIN LEVEL OF 9/10. NOTED A LITTLE BLEEDING TO RT GROIN SIZE OF A QUARTER. NO S/S OF HEMATOMA, PT DENIES ANY OTHER NEEDS AT THIS TIME. CALL LIGHT IN REACH, NAD NOTED,WILL CONTINUE TO MONITOR.
[2017-05-20] MEDS ORDERED: NICODERM C1 PATCH .2 TRANSDERM (15:28)
[2017-05-20] MEDS ORDERED: ASPIRIN325 MG PO (15:29)
[2017-05-20] MEDS ORDERED: LISINOPRIL10 MG PO (15:29)
[2017-05-20] MEDS ORDERED: METOPROLOL TART50 MG PO (15:29)
[2017-05-20] MEDS ORDERED: LIPITOR80 MG PO (15:31)
[2017-05-20] MEDS ORDERED: PLAVIX75 MG PO (15:32)
[2017-05-20 16:24] VITALS: BP 172/54
--- NOTE | 2017-05-20 17:32 | NUR ---
PROVIDED VERBAL AND WRITTEN DISHCARGE TEACHING TO PT AND PT'S . BOTH VERBALIZED UNDERSTANDING REGARDING TEACHING. D/C RT HAND IV, TIP INTACT, REMOVED HEART MONITOR AND TOOK IT TO SOCORRO FIELD MARKETING SPECIALIST. WHEELED PT DOWN TO FRONT DOOR, PT ACCOMPANIED BY , NAD NOTED.
--- NOTE | 2017-08-19 11:18 | ST ---
PATIENT:TJ CRAIG MEDICAL RECORD: [id number] SEX: F LOCATION:[facility] D212 ORDER #: ADMISSION DATE: 05/19/17 AGE OF PATIENT: 57 REFERRING PHYSICIAN: INTERPRETING PHYSICIAN: JORDAN LOOMIS MD DATE OF SERVICE: 05/19/2017 PROCEDURE PERFORMED: Lexiscan stress test. PROCEDURE IN DETAIL: The patient was brought in stable condition to the nuclear lab, placed in supine position on the operating table. The patient had a Lexiscan infused as standard dosages. The patient had significant ST-T wave depressions during the evaluation and significant chest discomfort that responded with nitroglycerin and beta blockade. The patient's rest and stress imaging was done the same day, the rest imaging was accomplished with 12.9 mCi of sestamibi infused at rest. The Stress imaging was accomplished with 32.3 mCi at stress. The Gated imaging showed ejection fraction of 48% with no distinct regional wall motion abnormalities. The SPECT imaging showed [id number] reversible ischemia anterior apical segment. CONCLUSIONS: The patient had EKG clinical and evidence of ischemic changes on nuclear imaging consistent with ischemia. RECOMMENDATIONS: Go forward with angiography. TRANSINT:[id number] Voice Confirmation ID: [id number] DOCUMENT ID: [id number] JORDAN LOOMIS MD at 1118 CC: [id number] DICTATION DATE: 08/15/17 1145 APPLICATION SUPPORT CONSULTANT: 08/15/17 1629 DIS IN 05/20/17 [id number] [place] [address]
== END 2017-05-20 17:39 | disposition home or self-care (01) | DRG 674 ==
LOC: D.ER 23:12 → D.M2 05-18 06:45 → OBSVTIME 05-18 06:45 → D.M2 05-18 06:45
PROVIDERS: Family Medicine; Internal Medicine Cardiovascular Disease; ADMIT Family Medicine
PROC: 047M3DZ Dilation of Right Popliteal Artery with Intraluminal Device, Percutaneous Approach (ICD-10-PCS; principal; 2017-05-18)
PROC: 4A023N7 Measurement of Cardiac Sampling and Pressure, Left Heart, Percutaneous Approach (ICD-10-PCS; 2017-05-20)
PROC: B2111ZZ Fluoroscopy of Multiple Coronary Arteries using Low Osmolar Contrast (ICD-10-PCS; 2017-05-20)
PROC: B2151ZZ Fluoroscopy of Left Heart using Low Osmolar Contrast (ICD-10-PCS; 2017-05-20)
PROC: 027034Z Dilation of Coronary Artery, One Artery with Drug-eluting Intraluminal Device, Percutaneous Approach (ICD-10-PCS; 2017-05-20 08:00)
PROC: 047A34Z Dilation of Left Renal Artery with Drug-eluting Intraluminal Device, Percutaneous Approach (ICD-10-PCS; 2017-05-20 08:00)
PROC: 047934Z Dilation of Right Renal Artery with Drug-eluting Intraluminal Device, Percutaneous Approach (ICD-10-PCS; 2017-05-20 08:00)
DX: I70.1 Atherosclerosis of renal artery (principal); I25.110 Atherosclerotic heart disease of native coronary artery with unstable angina pectoris; I69.954 Hemiplegia and hemiparesis following unspecified cerebrovascular disease affecting left non-dominant side; G45.9 Transient cerebral ischemic attack, unspecified; I65.23 Occlusion and stenosis of bilateral carotid arteries; E11.51 Type 2 diabetes mellitus with diabetic peripheral angiopathy without gangrene; E11.65 Type 2 diabetes mellitus with hyperglycemia; Z79.4 Long term (current) use of insulin; E78.5 Hyperlipidemia, unspecified; I16.0 Hypertensive urgency; Z86.73 Personal history of transient ischemic attack (TIA), and cerebral infarction without residual deficits

== ENCOUNTER 2017-08-08 22:02 | Observation (INO) | payer MEDICAID ==
[~2017-08-08] VITALS: Ht 157.5 cm; Wt 67.3 kg
--- NOTE | ~2017-08-08 | HEMODYNAMI ---
PATIENT:TJ CRAIG MEDICAL RECORD: [id number] : 60 [id number] ADMISSION DATE: 08/09/17 Generatedon:08/09/201712:11 Patient name: TJ CRAIG Patient #: [id number] : 1960 Date of study: 08/09/2017 Page: Of Hemodynamic Procedure Report Patient Data Patient Demographics Procedure consent was obtained First Name: TJ Gender: Female Last Name: KIARA : 1960 [facility] Initial: ALTA Age: 57 year(s) Patient #: [id number] Race: Other SSN: [id number] Additional ID: [id number] Contact details [address]: [address] [place] [address] [address] State: [place] City: [place] Zip code: [address] Past Medical History Allergies Allergen Reaction Date Comments Reported Other allergy 12/21/2016 steroids Other allergy 02/16/2017 Cortico-Steroids Other allergy 08/09/2017 Prednisone, Steroids Admission Admission Data Admission Date: 08/09/2017 Admission Time: 1:01 Room #: D.2118 Lab Results Lab Result Date: 08/09/2017 Lab Result Time: 0:00 Biochemistry Name Units Result Min Max BUN mg/dl 21 --(----)-* 7 18 Creatinine mg/dl 1.1 --(--*-)-- 0.6 1.3 CBC Name Units Result Min Max Hemoglobin g/dl 14.3 --(*---)-- 13.5 17.5 Procedure Procedure Types Cath Procedure Diagnostic Procedure [facility] w/Coronaries PCI Procedure Coronary Stent Coronary Stent Initial Miscellaneous Procedures Moderate Sedation up to 30 minutes Peripheral Cath Diagnostic Procedure Cath Peripheral Htgef-Mmmbstg-Hqz-Off Procedure Description Procedure Date Procedure Date: 08/09/2017 Procedure Start Time: 11:46 Procedure End Time: 12:07 Procedure Staff Name Function Pelon Sy MD Performing Physician Brionna Rodriguez RT Monitor Seble Jefferson RT Scrub Carolina Bassett RN Nurse Procedure Data Cath Procedure Fluoroscopy Diagnostic fluoroscopy Total fluoroscopy Time: 3.7 time: 3.7 min min Diagnostic fluoroscopy Total fluoroscopy dose: 799 dose: 799 mGy mGy Contrast Material Contrast Material Type Amount (ml) Isovue 300 121 Entry Location Entry Primary Successful Side Size Upsize Upsize Entry Closure Succes sful Closure Location (Fr) 1 (Fr) 2 (Fr) Remarks Device Remarks Femoral Left 5 Fr 6 Fr Exoseal artery Short Estimated blood loss: 5 ml Diagnostic catheters Device Type Used For End Catheter Placement MULTIPACK Pigtail 5 Fr LV Angiography catheter MULTIPACK JL 4.0 5Fr Left Coronary catheter Angiography MULTIPACK 3DRC 5Fr Right Coronary catheter Angiography Procedure Complications No complications Procedure Medications Medication Administration Route Dosage Oxygen NC 2 l/min Lidocaine 2% added to field 20 Heparin Flush Bag added to field 2 bags (1000units/500ml NS) 0.9% NaCl I.V. 100 ml/hr Zofran I.V. 4 mg Plavix P.O. 75 mg Versed I.V. 1 mg Versed I.V. 1 mg Fentanyl I.V. 50 mcg Fentanyl I.V. 50 mcg Heparin Bolus I.V. 4000 units Fentanyl I.V. 50 mcg Versed I.V. 1 mg Hemodynamics Rest HGB: 14.3 (g/dl) Heart Rate: 64 (bpm) Pressure Samples Time Site Value (mmHg) Purpose Heart Use Rate(bpm) 11:47 LV 101/30,101 Snapshot 84 Snapshots Pre Cath Intra NCS Post Cath Vital Signs Time Heart Resp SPO2 NIBP (mmHg) Rhythm Pain Sedation Rate (ipm) (%) Status Level (bpm) 11:25:37 70 15 98 174/77(120) NSR 0 (11) 10(A) , No pain 11:29:59 71 16 97 160/74(112) NSR 0 (11) 10(A) , No pain 11:34:26 69 17 99 149/68(100) NSR 0 (11) 10(A) , No pain 11:38:46 72 13 99 160/62(105) NSR 0 (11) 10(A) , No pain 11:42:56 69 23 98 139/70(96) NSR 0 (11) 10(A) , No pain 11:47:12 75 16 95 150/70(113) NSR 0 (11) 9(A) , No pain 11:52:29 78 13 93 148/71(128) NSR 0 (11) 9(A) , No pain 11:56:47 77 16 94 136/77(107) NSR 0 (11) 9(A) , No pain 12:00:59 84 17 95 143/87(114) NSR 0 (11) 10(A) , No pain 12:05:58 88 11 94 Measuring NSR 0 (11) 10(A) , No pain 12:07:02 211/100(136) NSR 0 (11) 10(A) , No pain Medications Time Medication Route Dose Verified Delivered Reason Notes Effectiveness by by 11:24:17 Plavix P.O. 75 mg Pelon Buffie for Yossi Bassett RN antiplatelet therapy 11:24:52 Oxygen NC 2 Pelon Buffie used for l/min Yossi Bassett RN procedure 11:24:59 Lidocaine 2% added 20ml Pelon Pelon for local to vial Yossi Sy MD anesthetic field 11:25:07 Heparin Flush added 2 Pelon Pelon used for Bag to bags Yossi Sy MD procedure (1000units/500ml field NS) 11:25:15 0.9% NaCl I.V. 100 Pelon Buffie Per physician ml/hr Yossi Bassett RN 11:25:27 Zofran I.V. 4 mg Pelon Figueroa Per physician Yossi Bassett RN 11:42:31 Versed I.V. 1 mg Pelon Loredoie for sedation Yossi Bassett RN 11:42:39 Fentanyl I.V. 50 Pelon Buffie for sedation mcg Yossi Bassett RN 11:46:32 Versed I.V. 1 mg Pelon Buffie for sedation Yossi Bassett RN 11:46:39 Fentanyl I.V. 50 Pelon Buffie for sedation mcg Yossi Bassett RN 11:52:18 Heparin Bolus I.V. 4000 Pelon Buffie for VERIFI ED units Yossi Bassett RN anticoagulation WITH DR SY 11:55:13 Versed I.V. 1 mg Pelon Buffie for sedation Yossi Bassett RN 11:55:54 Fentanyl I.V. 50 Pelon Buffie for sedation mcg Yossi Bassett RN Procedure Log Time Note 10:57:11 Informed consent obtained and on chart 10:57:15 Diagnostic Cath Status : Elective 10:58:48 Seble Jefferson RT(R) sent for patient. Start room use. 10:58:49 Time tracking: Regular hours 10:58:54 Plan of Care:Hemodynamics will remain stable., Cardiac rhythm will remain stable., Comfort level will be maintained., Respiratory function will remain adequate., Patient/ family verbilizes understanding of procedure., Procedure tolerated without complication., Recovers from procedure without complications.. 11:23:16 Patient received from Med/Surg to CCL 2 Alert and oriented. Tansferred to table in Supine position. 11:23:17 Warm blankets applied, and kingston hugger turned on for patient comfort. 11:23:17 Correct patient and procedure confirmed by team. 11:23:18 ECG and BP/O2 sat monitors applied to patient. 11:23:22 Vital chart was started 11:23:23 Baseline sample Acquired. 11:23:27 Rhythm: sinus rhythm 11:23:29 Full Disclosure recording started 11:23:32 H&P Date Dictated: 08/09/2017 New H&P dictated by physician.. 11:23:34 Pre-procedure instructions explained to patient. 11:23:34 Pre-op teaching completed and patient verbalized understanding. 11:23:36 Family unavailable. 11:23:38 Patient NPO since Breakfast. 11:24:17 Plavix 75 mg P.O. was administered by Carolina Bassett RN; for antiplatelet therapy; 11:24:52 Oxygen 2 l/min NC was administered by Carolina Bassett RN; used for procedure; 11:24:59 Lidocaine 2% 20ml vial added to field was administered by Pelon Sy MD; for local anesthetic; 11:25:07 Heparin Flush Bag (1000units/500ml NS) 2 bags added to field was administered by Pelon Sy MD; used for procedure; 11:25:15 0.9% NaCl 100 ml/hr I.V. was administered by Carolina Bassett RN; Per physician; 11:25:27 Zofran 4 mg I.V. was administered by Carolina Bassett RN; Per physician; 11:28:32 Patient allergic to Other allergyPrednisone, Steroids 11:28:34 Is the patient allergic to Iodine/contrast media? No. 11:28:36 Was the patient premedicated? No 11:28:37 Is patient on blood thinner?Yes 11:28:45 ACC The patient was administered the following blood thiners within the last 24 hours: ACCPlavix 11:29:22 Patient diabetic? Yes. 11:29:24 If diabetic: On Metformin? Yes 11:29:25 If on Metformin: Last Dose? 08/08/2017 11:29:27 Previous problem with sedation/anesthesia? No ? 11:29:29 Snore? Yes 11:29:30 Sleep apnea? No 11:29:31 Deviated septum? No 11:29:31 Opens mouth fully? Yes 11:29:32 Sticks out tongue? Yes 11:29:34 Airway obstruction? No ? 11:29:37 Dentures? No ? 11:29:41 Pre procedure: right dorsailis pedis pulse 1+ Palpable, but thready & weak; easily obliterated 11:29:44 Pre procedure: left dorsailis pedis pulse 1+ Palpable, but thready & weak; easily obliterated 11:29:47 Patient pain scale 0/10 ?. 11:30:30 IV patent on arrival in right forearm with 0.9% NaCl at [facility]. 11:32:01 Lab Result : BUN 21 mg/dl 11:32:01 Lab Result : Creatinine 1.1 mg/dl 11:32:01 Lab Result : Hemoglobin 14.3 g/dl 11:32:05 Lab results completed and on chart. 11:32:09 Left groin area was prepped with chlora-prep and draped in sterile fashion 11:32:10 Alarms reviewed by R. N. 11:32:11 Sharps counted by scrub and verified by R.N. 11:36:01 Zero performed for pressure channel P1 11:41:21 Physician arrived 11:41:21 --------ALL STOP TIME OUT------ 11:41:22 Final Timeout: patient, procedure, and site verified with staff and physician. All members of the team are in agreement. 11:41:26 Left groin site verified by team. 11:41:28 Physical assessment completed. ASA score P 2 - A patient with mild systemic disease as per Pelon yS MD. 11:41:32 Sedation plan: IV Moderate Sedation Medication:Versed, Fentanyl 11:42:31 Versed 1 mg I.V. was administered by Carolina Bassett RN; for sedation; 11:42:39 Fentanyl 50 mcg I.V. was administered by Carolina Bassett RN; for sedation; 11:45:13 Use device set Femoral Dx 11:45:14 ACIST Syringe (16051) opened to sterile field. 11:45:15 Bag Decanter (2002S) opened to sterile field. 11:45:15 Medline Cath Pack ([id number]) opened to sterile field. 11:45:16 SHEATH 5FR [place] (JOL153) opened to sterile field. 11:45:16 DIAGNOSTIC WIRE .035 260cm J wire (632177) opened to sterile field. 11:45:18 ACIST Hand Control (64259) opened to sterile field. 11:45:18 ACIST Manifold (25203) opened to sterile field. 11:45:19 DIAGNOSTIC Multipack 5Fr catheter set (IE1715) opened to sterile field. 11:45:19 Tegaderm 4 x 4 (1626W) opened to sterile field. 11:46:01 Procedure started. 11:46:06 Local anesthetic to left femerol artery with Lidocaine 2% by Pelon Sy MD.INITIAL ACCESS ONLY 11:46:32 Versed 1 mg I.V. was administered by Carolina Bassett RN; for sedation; 11:46:32 A 5 Fr sheath was inserted into the Left Femoral artery 11:46:39 Fentanyl 50 mcg I.V. was administered by Carolina Bassett RN; for sedation; 11:46:59 A MULTIPACK Pigtail 5 Fr catheter was advanced over the wire and used for LV Angiography. 11:47:58 LV hemodynamics recorded. 11:48:01 LV gram done using CORDOVA 11:48:03 Injector settings: Ml/sec: 5, Volume: 15, 11:48:09 EF : 70 % 11:48:52 Abdominal Aortagram was performed. 11:49:36 Catheter removed. 11:49:45 A MULTIPACK JL 4.0 5Fr catheter was advanced over the wire and used for Left Coronary Angiography. 11:50:13 LCA angiography performed. 11:50:17 Injector settings: Ml/sec: 3, Volume: 6, 11:51:10 Catheter removed. 11:51:16 A MULTIPACK 3DRC 5Fr catheter was advanced over the wire and used for Right Coronary Angiography. 11:52:18 Heparin Bolus 4000 units I.V. was administered by Carolina Bassett RN; for anticoagulation; VERIFIED WITH DR SY 11:52:23 RCA angiography performed. 11:52:26 Injector settings: Ml/sec: 3, Volume: 6, 11:52:30 Catheter removed. 11:52:32 Proceeding to intervention. 11:52:52 SHEATH 6FR [place] (KDH104) opened to sterile field. 11:52:53 INFLATOR Merit BasixCompak (LC4746) opened to sterile field. 11:52:55 GUIDE 6FR 3DRC SH catheter ([id number]) opened to sterile field. 11:53:02 EXOSEAL 6Fr (EX600) opened to sterile field. 11:53:13 Sheath upsized to a 6 Fr Short. 11:53:19 6 Fr 3drc sh guide catheter was inserted over the wire 11:54:25 WHISPER 190cm wire ([id number]) opened to sterile field. 11:54:59 whisper wire advanced. 11:55:13 Versed 1 mg I.V. was administered by Carolina Bassett RN; for sedation; 11:55:25 Wire advanced across lesion. 11:55:54 Fentanyl 50 mcg I.V. was administered by Carolina Bassett RN; for sedation; 11:58:08 Inflation Number: 1 A PERICO RX 3.5 x 22 stent ([id number]) was prepped and advanced across the Prox RCA. The stent was deployed at 13 LEA for 0:10 (min:sec). 11:58:22 Inflation number: 1 The stent balloon was then re-inflated across the Mid RCA to 13 LEA for 0:10 (min:sec). 12:01:35 Stent catheter was removed intact over wire. 12:01:35 Wire removed. 12:01:35 Guide catheter removed. 12:01:45 Sheath removed intact; hemostasis achieved with Exoseal to the Left Femoral artery. 12:01:47 Procedure ended.(Physican Out) 12:02:40 Fluoroscopy time 03.70 minutes. 12:02:44 Fluoroscopy dose: 799 mGy 12:02:44 Flurop Dose total: 799 12:02:54 Contrast amount:Isovue 300 121ml. 12:02:55 Sharps counted by scrub and verified by R.N. 12:02:59 Insertion/operative site no bleeding no hematoma. 12:03:02 Post-op/insertion site Left Femoral artery dressed using a 4 x 4 and Tegaderm. 12:03:13 Post left femerol artery:stable 12:06:55 Post Procedure Pulses reassessed and unchanged 12:06:57 Post procedure rhythm: unchanged. 12:07:00 Estimated blood loss: 5 ml 12:07:01 Post procedure instruction explained to patient.Patient verbalizes understanding. 12:07:02 Patient needs reinforcement of post procedure teaching. 12:07:25 Procedure type changed to Cath procedure, Diagnostic procedure, LHC, LHC w/Coronaries, PCI procedure, Coronary Stent, Coronary Stent Initial, Miscellaneous Procedures, Moderate Sedation up to 30 minutes, Peripheral Cath Diagnostic Procedure, Cath Peripheral, Rfjqr-Mqobbsj-Siy-Off 12:07:26 Procedure and supply charges have been captured, reviewed, submitted and are correct. 12:07:32 Procedure Complication : No complications 12:07:34 Vital chart was stopped 12:07:35 See physician's report for complete and final results. 12:07:44 Report given to [facility]. 12:07:46 Patient transfered to Med II with Stretcher. 12:07:48 Procedure ended. 12:07:48 Full Disclosure recording stopped 12:07:55 ACC-PCI Only Patient was given prescriptions, or instructed by Pelon Sy MD to start/continue the following medications upon discharge: Plavix 12:07:56 End room use (Document Last) Intervention Summary Intervention Notes Time ActionType Lesion and Equipment Used Action# Pressure Duration Attributes 11:58:[address] stent Prox RCA PERICO RX 3.5 x 1 13 00:10 22 stent ([id number]) 11:58:22 Reinflate Mid RCA PERICO RX 3.5 x 1 13 00:10 stent 22 stent balloon ([id number]) Device Usage Item Name Manufacture Quantity Catalog Hospital Part [facility] Lot# / Number Charge Number Stock Stock Serial# Code ACIST Syringe Acist 1 [id number] [id number] 996864 037105 20 (91420) [employer] Bag Decanter Microtek 1 702055 44717 773160 5 (2002S) Medical Inc. Medline Cath Cardinal 1 [id number] 016145 72694 566321 5 Pack Health ([id number]) SHEATH 5FR Terumo 1 UOL993 130350 415968 165466 40 [place] (XGY082) DIAGNOSTIC St Remy 1 013608 872163 758023 184727 30 WIRE .035 260cm J wire (108537) ACIST Hand Acist 1 82760 543370 890038 881984 5 Control Medical (21515) Systems Inc ACIST Manifold Acist 1 58524 899435 035345 929952 5 (13571) Medical Systems Inc DIAGNOSTIC Cardinal 1 WK0864 876070 40156 590070 30 Multipack 5Fr Health catheter set (UD1403) Tegaderm 4 x 4 3M 1 1626W 963831 073744 445879 5 (1626W) MULTIPACK Cardinal 1 247915 5 Pigtail 5 Fr Health catheter MULTIPACK JL Cardinal 1 732689 5 4.0 5Fr Health catheter MULTIPACK 3DRC Cardinal 1 496847 5 5Fr catheter Health SHEATH 6FR Terumo 1 HCF333 126735 697370 995752 40 [place] (FGC433) INFLATOR Merit Merit 1 XS2321 327910 912428 20[address]02 [address] [facility] (SI1025) GUIDE 6FR 3DRC Medtronic 1 [id number] 545232 423356 933915 1 SH catheter ([id number]) EXOSEAL 6Fr Cardinal 1 EX600 377276 405219 072646 10 (EX600) Health WHISPER 190cm Zamudio 1 [id number] 860116 246115 953858 5 wire Vascular ([id number]) PERICO RX 3.5 x Medtronic 1 [id number] 258952 6737227 897657 5 [id number] 22 stent ([id number]) Signature Audit Henderson Stage Time Signature Unsigned Intra-Procedure 08/09/2017 Brionna Rodriguez 12:11:27 PM RT(R) Signatures Monitor : Brionna Rodriguez RT Signature : Date : Time : [facility] [address] [place] [address]
[~2017-08-08 22:02] MED LIST changes: +ALDACTONE25 MG PO; +ASPIRIN325 MG PO; +LISINOPRIL10 MG PO; +METOPROLOL TART50 MG PO; +NICODERM C1 PATCH .2 TRANSDERM; +ZOLOFT100 MG PO
[2017-08-08 23:26] LABS: HEMATOCRIT 41.4 % (36.0-48.0); HEMOGLOBIN 14.3 g/dL (12-16); LYMPHOCYTES 41.2 % (15-50); MCH 30.9 pg (26.0-34.0); MCHC 34.5 g/dL (31.0-37.0); MCV 89.4 fL (80.0-100.0); MEAN PLATELET VOLUME 11.6 fL (7.4-10.4); NEUTROPHILS 49.2 % (40-80); PLATELET COUNT 200 10x3/uL (130-400); RBC 4.63 10x6/uL (4.00-5.40); RDW 14.2 % (11.5-14.5); WBC 8.4 10x3/uL (4.8-10.8)
[2017-08-08 23:43] LABS: ALBUMIN 3.1 g/dL (3.4-5.0); ALKALINE PHOSPHATASE 131 U/L (46-116); ALT (SGPT) 22 U/L (10-68); CALC OSMOLALITY 273 mosm/kg (275-300); CARBON DIOXIDE 27.7 mmol/L (21.0-32.0); CHLORIDE - SERUM 98 mmol/L (98-107); CREATININE - SERUM 1.1 mg/dL (0.6-1.3); POTASSIUM - SERUM 3.8 mmol/L (3.5-5.1); PROTEIN - SERUM 7.5 g/dL (6.4-8.2); SODIUM 127 mmol/L (136-145); UREA NITROGEN 21 mg/dL (7-18); eGFR NON AFRICAN AMERICAN 54 mL/min (90-120)
[2017-08-08 23:48] LABS: GLUCOSE 381 mg/dL (74-106)
[2017-08-08 23:54] LABS: CHOLESTEROL, TOTAL 239 mg/dL (0-200); CKMB 0.5 U/L (0.0-3.6); CREATINE KINASE 46 UL (21-215); HDL CHOLESTEROL 30 mg/dL (32-96); LDL CHOLESTEROL 135 mg/dL (0-100); LDL-HDL RATIO 4.5 ratio (1.5-3.5); TRIGLYCERIDE 374 mg/dL (30-200); TROPONIN-I < 0.017 ng/mL (0.000-0.060)
--- NOTE | 2017-08-09 02:18 | NUR ---
RECIEVED PT TO FLOOR FROM ED VIA WHEELCHAIR. TRANSFERED SELF TO BED. ALERT AND ORIENTED AND ABLE TO VERBALIZE NEEDS. IV IS PATENT AND SALINE LOC. PT STATES PAIN 10/10 TO LEFT SIDE OF HEAD. PT IS AMBULATORY BUT WS INSTRUCTED TO CALL FOR ANY ASSISTANCE NEEDED. VSS. PT IS ORIENTED TO ROOM AND USE OF CALL LIGHT. NO NEEDS ARE VERBALIZED AT THIS TIME. WILL CONTINUE TO MONITOR. SIDE RAILS ARE UP X 2. BED IS IN LOWEST POSITION. CALL LIGHT IS WITHIN REACH.
[2017-08-09 02:59] VITALS: BP 149/61; Ht 157.5 cm; Wt 67.3 kg
--- NOTE | 2017-08-09 02:59 | NUR ---
ADMIT ASSESSMENT COMPLETED. NO CHANGES FROM PREVIOUS. WILL MONITOR. SIDE RAILS X 2. BED LOW. CALL LIGHT IN REACH.
[2017-08-09] MEDS ORDERED: VISTARIL25 MG PO (03:18)
[2017-08-09] MEDS ORDERED: AVAPRO300 MG PO (03:18)
[2017-08-09] MEDS ORDERED: PROTONIX40 MG PO (03:19)
[2017-08-09 08:08] VITALS: BP 158/59
--- NOTE | 2017-08-09 08:34 | NUR ---
AWAKE AND ALERT. ORIENTED X3. NO C/O CP AT THIS TIME. LUNGS ARE CLEAR BILATERALLY, NO COUGH NOTED.SKIN IS INTACT WITHOUT REDNESS. SL TO RIGHT AC AREA IS PATENT WITHOUT REDNESS AT INSERTION SITE. DENIES NEEDS. WANTS TO EAT.
[2017-08-09 09:53] LABS: BASOPHILS 0.2 % (0-2); EOSINOPHILS 1.4 % (0-7); HEMATOCRIT 42.4 % (36.0-48.0); HEMOGLOBIN 14.3 g/dL (12-16); IMMATURE GRANULOCYTES 0.3 % (0-5); LYMPHOCYTES 33.4 % (15-50); MCH 30.8 pg (26.0-34.0); MCHC 33.7 g/dL (31.0-37.0); MEAN PLATELET VOLUME 11.8 fL (7.4-10.4); MONOCYTES 7.7 % (2-11); PLATELET COUNT 228 10x3/uL (130-400); RBC 4.64 10x6/uL (4.00-5.40); RDW 14.4 % (11.5-14.5); WBC 9.8 10x3/uL (4.8-10.8)
[2017-08-09 10:03] LABS: MCV 91.4 fL (80.0-100.0)
--- NOTE | 2017-08-09 11:26 | NUR ---
OFF UNIT VIA BED FOR CATH.
--- NOTE | 2017-08-09 12:29 | NUR ---
RECIEVED FROM ASSISTANT COMMISSIONER. LEFT GROIN STABLE WITHOUT BLEEDING OR HEMAYOMA NOTED. WILL MONITOR.
[2017-08-09 15:07] VITALS: BP 186/79
--- NOTE | 2017-08-09 16:33 | NUR ---
BED REST UP. GROIN STABLE. IV AND TELEMETRY DCD. DC PLANS GIVEN. UNDERSTANDING VOICED.
--- NOTE | 2017-08-09 16:57 | NUR ---
ESCORTED TO CAR BY W/C.
--- NOTE | 2017-08-16 15:46 | OP ---
PATIENT NAME: TJ CRAIG MEDICAL RECORD: [id number] :60 LOCATION:D.M2 D.2118 ADMISSION DATE:08/09/17 SURGEON: TRAE FORD MD DATE OF OPERATION: 08/09/2017 DATE OF SERVICE: 08/09/2017 PROCEDURES: 1. PTCA stent RCA. 2. Left heart catheterization. 3. Selective coronary angiography. 4. Left ventriculogram. INDICATION: Angina and coronary artery disease. PROCEDURE IN DETAIL: After informed consent was obtained after detailed explanation of risks, benefits as well as alternative therapies, the patient elected to proceed with angiogram and angioplasty. The left femoral area was prepped and draped in normal sterile fashion. Left femoral artery was cannulated via modified Seldinger technique with placement of 6-Romansh sheath. All catheters were exchanged through this sheath. FINDINGS Left ventriculogram was performed in a standard 30-degree CORDOVA view, reveals good cardiac wall motion throughout all segments. Overall ejection fraction is 65% to 70%. SELECTIVE CORONARY ANGIOGRAPHY: 1. Left main showed no significant angiographic disease. 2. Left anterior descending has previously placed stents, these are widely patent with no significant restenosis. No disease elsewhere throughout the LAD or its branches. 3. Left circumflex has moderate irregularities, but no flow-limiting stenosis. 4. The right coronary has previously placed stents. There is a 75% in-stent restenosis proximally. PTCA STENT OF THE RIGHT CORONARY: The stent used was a 3.5 x 22 mm Clive. Result was 0% residual stenosis. OVERALL IMPRESSION: Successful percutaneous transluminal coronary angioplasty stent of the right groin going from 75% initial stenosis to 0% residual. TRANSINT:[id number] Voice Confirmation ID: [id number] DOCUMENT ID: [id number] TRAE FORD MD at 1546 CC: [id number] DICTATION DATE: 08/09/17 120 POURED PIPE MAKER: 08/09/17 1224 DIS IN 08/09/17 [id number] [place] [address]
--- NOTE | 2017-08-16 15:46 | OP ---
PATIENT NAME: TJ CRAIG MEDICAL RECORD: [id number] :60 LOCATION:D.M2 D.2118 ADMISSION DATE:08/09/17 SURGEON: TRAE FORD MD DATE OF OPERATION: 08/09/2017 DATE OF SERVICE: 08/09/2017 PROCEDURES: 1. Aortofemoral runoff. 2. Abdominal aortography. INDICATION: Claudication and peripheral vascular disease. PROCEDURE IN DETAIL: After informed consent was obtained after detailed explanation of risks, benefits as well as alternative therapies, the patient elected to proceed with angiogram and aortofemoral runoff. The left femoral area had a preexisting sheath. All catheters exchanged through this sheath. FINDINGS: Abdominal aortography was performed. The catheter was pulled down for aortofemoral runoff. Abdominal aortography reveals no significant abdominal aortic disease. No dissection or aneurysm formation. LEFT LEG: A. Iliac: The common internal and external iliacs have moderate irregularities, but no flow-limiting stenosis. B. Femoral system: The common and deep femoral are widely patent. The superficial femoral has a previously placed stent. There was up to 70% in-stent restenosis. C. Popliteal and infrapopliteal vessels were widely patent. RIGHT LEG: A. Iliac: The common internal and external iliacs have moderate irregularities, but no flow-limiting stenosis. B. Femoral system: The common and deep femoral are widely patent. Superficial femoral has a previously placed stent with greater than 70% in-stent restenosis. Popliteal has a previously placed stent with 90% in-stent restenosis. After this, there is 3-vessel runoff to the foot. OVERALL IMPRESSION: Significant restenosis of both SFAs as well as the right popliteal that is amenable to atherectomy in the near future. TRANSINT:[id number] Voice Confirmation ID: [id number] DOCUMENT ID: [id number] TRAE FORD MD at 1546 CC: [id number] DICTATION DATE: 08/09/17 1205 REGRINDER: 08/09/17 1226 DIS IN 08/09/17 [id number] [place] [address]
--- NOTE | 2017-08-16 15:46 | CN ---
PATIENT NAME:TJ CRAIG MEDICAL RECORD: [id number] : 60 LOCATION:D. D.2118 ADMIT DATE: 08/09/17 ACCOUNT: [id number] CONSULTING PHYSICIAN: TRAE FORD MD REFERRING PHYSICIAN: KIARA LEDBETTER MD DATE OF CONSULTATION: 08/09/2017 DIAGNOSES: 1. Unstable angina. 2. Coronary artery disease. 3. Peripheral vascular disease. 4. Claudication. 5. Diabetes. 6. Hypertension. 7. Hyperlipidemia. HISTORY OF PRESENT ILLNESS: Ms. Craig presents with 2 weeks of increasing anginal chest discomfort just like that of her previous angina. She is ruled out for myocardial infarction. She continues to have the episodes of chest pain. Last cardiac intervention was in December. Last peripheral intervention was in April. PHYSICAL EXAMINATION: GENERAL APPEARANCE: Well-nourished, well-developed, appears stated age. Level of distress, comfortable. PSYCHIATRIC: Mental status, alert, normal affect. Orientation, oriented to time, place and person. EYES: Lids and conjunctiva, noninjected. No discharge, no pallor. ENT: Lips, teeth, gums, normal dentition. Oropharynx, no cyanosis, no pallor. NECK: Carotid arteries, bilateral normal upstroke, no bruits, no thrills. JUGULAR VEINS: No jugular venous pressure or distention. CERVICAL LYMPH NODES: Nontender, nonenlarged. THYROID: Not enlarged. Nontender. No nodules. LUNGS: Respiratory effort, unlabored. CHEST: Normal curvature. No thoracic deformity. No chest wall tenderness. Percussion, resonant. Auscultation, clear. No wheezes, no rales, no rhonchi. CARDIOVASCULAR: Precordial exam, nondisplaced. No heaves or pericardial thrills. Rate and rhythm, regular. Heart sounds, normal S1, normal S2. No S3, no gallop, no rub. Systolic murmur, not heard. Diastolic murmur, not heard. EXTREMITIES: No cyanosis, no edema. Peripheral pulses, full and equal in all extremities, except as noted. No bruits appreciated. ABDOMEN: Soft, nondistended. Normal aorta. No bruit. Nontender. No masses. Liver, nontender, no hepatomegaly. Spleen, nontender, no splenomegaly. MUSCULOSKELETAL: No joint tenderness. No joint swelling. No erythema. NEUROLOGICAL: Normal gait, normal strength, normal tone. SKIN: Warm and dry. REVIEW OF SYSTEMS: The patient reports easy bruising but reports no swollen glands. The patient reports no fever, no night sweats, no significant weight gain, no significant weight loss. No significant exercise tolerance. The patient reports no dry eyes, no irritation, no vision change. Patient reports no difficulty hearing and no ear pain. Patient reports no frequent nose bleeds or nose and sinus problems. Patient reports on arm pain on exertion. No shortness of breath while lying down. No history of heart murmur. Patient reports no cough, no wheezing or coughing up blood. Patient reports no CONSULT REPORT [id number] abdominal pain, no vomiting. Normal appetite. No diarrhea and not vomiting blood. No nausea and no constipation. Patient reports no incontinence. No difficulty urinating. No hematuria. No increased frequency. Patient reports no muscle aches. No weakness, no arthralgias, no back pain. No swelling of the extremities. Patient reports no abnormal mole, no jaundice, no rashes. Reports no loss of consciousness. No weakness and no numbness. No seizures, dizziness, or headaches. The patient reports no depression, no sleep disturbance, feeling safe in a relationship and no alcohol abuse. Patient reports on fatigue. Reports no runny nose or sinus pressure. No itching, no hives, and no frequent sneezing. OVERALL IMPRESSION: Chest pain compatible with angina, rapidly progressive unstable fashion. At this time, we will proceed with coronary angiography as well. She is having recurrent right leg pain. Her last right leg intervention was in April, we will re-evaluate this with aortofemoral runoff. TRANSINT:[id number] Voice Confirmation ID: [id number] DOCUMENT ID: [id number] TRAE FORD MD at 1546 CC: [id number] DICTATION DATE: 08/09/17 0954 ROAST MASTER: 08/09/17 1140 DIS IN 08/09/17 [address] [id number] [place] [id number]
== END 2017-08-09 16:57 | disposition home or self-care (01) ==
LOC: D.ER 22:02 → OBSVTIME 08-09 01:01 → D.MS 08-09 01:01 → D.M2 08-09 11:56
PROVIDERS: Emergency Medicine; ADMIT Emergency Medicine
DX: I25.110 Atherosclerotic heart disease of native coronary artery with unstable angina pectoris (principal); Z95.1 Presence of aortocoronary bypass graft; Z72.0 Tobacco use; E87.1 Hypo-osmolality and hyponatremia; E86.0 Dehydration; Z86.73 Personal history of transient ischemic attack (TIA), and cerebral infarction without residual deficits; I16.0 Hypertensive urgency; K21.9 Gastro-esophageal reflux disease without esophagitis; E11.9 Type 2 diabetes mellitus without complications; Z79.4 Long term (current) use of insulin; E78.5 Hyperlipidemia, unspecified; I73.9 Peripheral vascular disease, unspecified

== ENCOUNTER 2017-08-23 21:33 | Observation (INO) | payer MEDICAID ==
[~2017-08-23] VITALS: Ht 157.5 cm; Wt 69.4 kg
[~2017-08-23 21:33] MED LIST changes: +AVAPRO300 MG PO; +PROTONIX40 MG PO; +VISTARIL25 MG PO
[2017-08-23 21:58] LABS: BASOPHILS 0.2 % (0-2); EOSINOPHILS 1.8 % (0-7); HEMATOCRIT 39.8 % (36.0-48.0); HEMOGLOBIN 13.7 g/dL (12-16); IMMATURE GRANULOCYTES 0.2 % (0-5); LYMPHOCYTES 37.9 % (15-50); MCH 31.4 pg (26.0-34.0); MCHC 34.4 g/dL (31.0-37.0); MCV 91.1 fL (80.0-100.0); MEAN PLATELET VOLUME 11.2 fL (7.4-10.4); MONOCYTES 7.1 % (2-11); NEUTROPHILS 52.8 % (40-80); PLATELET COUNT 221 10x3/uL (130-400); RBC 4.37 10x6/uL (4.00-5.40); RDW 13.9 % (11.5-14.5); WBC 8.9 10x3/uL (4.8-10.8)
[2017-08-23 22:27] LABS: ALBUMIN 3.2 g/dL (3.4-5.0); ALKALINE PHOSPHATASE 119 U/L (46-116); ALT (SGPT) 21 U/L (10-68); BILIRUBIN - TOTAL 0.18 mg/dL (0.2-1.3); CALCIUM 9.3 mg/dL (8.5-10.1); CARBON DIOXIDE 26.5 mmol/L (21.0-32.0); CHLORIDE - SERUM 98 mmol/L (98-107); CHOL - HDL RATIO 5.2 ratio (2.3-4.1); CHOLESTEROL, TOTAL 201 mg/dL (0-200); CKMB 1.2 U/L (0.0-3.6); CREATINE KINASE 147 UL (21-215); HDL CHOLESTEROL 39 mg/dL (32-96); LDL CHOLESTEROL 125 mg/dL (0-100); LDL-HDL RATIO 3.2 ratio (1.5-3.5); POTASSIUM - SERUM 3.7 mmol/L (3.5-5.1); PROTEIN - SERUM 7.3 g/dL (6.4-8.2); SODIUM 135 mmol/L (136-145); TRIGLYCERIDE 187 mg/dL (30-200); UREA NITROGEN 16 mg/dL (7-18); eGFR NON AFRICAN AMERICAN 61 mL/min (90-120)
[2017-08-23 22:46] LABS: CALC OSMOLALITY 289 mosm/kg (275-300); GLUCOSE 443 mg/dL (74-106); MAGNESIUM - SERUM 1.9 mg/dL (1.8-2.4); TROPONIN-I < 0.017 ng/mL (0.000-0.060)
[2017-08-23 22:59] LABS: INR 0.93 (0.85-1.17); PROTIME 12.1 SECONDS (11.6-15.0)
[2017-08-23 23:01] LABS: D-DIMER-QUANTITATIVE 0.51 ug/mLFEU (0.20-0.54)
[2017-08-24] VITALS (7 sets, daily range): BP systolic 121–156; BP diastolic 42–63; Ht 157.5 cm; Wt 69.4 kg
[2017-08-24 04:00] LABS: CKMB 0.7 U/L (0.0-3.6); CREATINE KINASE 113 UL (21-215)
[2017-08-24 04:02] LABS: TROPONIN-I < 0.017 ng/mL (0.000-0.060)
[2017-08-24 11:26] LABS: ALKALINE PHOSPHATASE 138 U/L (46-116); ALT (SGPT) 42 U/L (10-68); CALC OSMOLALITY 278 mosm/kg (275-300); CALCIUM 9.2 mg/dL (8.5-10.1); CARBON DIOXIDE 28.8 mmol/L (21.0-32.0); CHLORIDE - SERUM 100 mmol/L (98-107); CKMB 0.7 U/L (0.0-3.6); CREATINE KINASE 87 UL (21-215); CREATININE - SERUM 1.1 mg/dL (0.6-1.3); GLUCOSE 210 mg/dL (74-106); POTASSIUM - SERUM 3.6 mmol/L (3.5-5.1); PROTEIN - SERUM 7.1 g/dL (6.4-8.2); SODIUM 136 mmol/L (136-145); TROPONIN-I < 0.017 ng/mL (0.000-0.060); UREA NITROGEN 16 mg/dL (7-18); eGFR NON AFRICAN AMERICAN 54 mL/min (90-120)
[2017-08-24 16:56] LABS: CKMB 0.5 U/L (0.0-3.6); CREATINE KINASE 74 UL (21-215)
[2017-08-24 16:59] LABS: TROPONIN-I < 0.017 ng/mL (0.000-0.060)
[2017-08-24 18:00] LABS: APPEARANCE HAZY (CLEAR); BILIRUBIN NEGATIVE (NEGATIVE); COLOR DK YELLOW (YELLOW); GLUCOSE 250 mg/dL (NEGATIVE); KETONE NEGATIVE (NEGATIVE); NITRITE NEGATIVE (NEGATIVE); PROTEIN NEGATIVE (NEGATIVE); SPECIFIC GRAVITY 1.025 (1.005-1.020); UROBILINOGEN NORMAL (NORMAL)
[2017-08-24 18:02] LABS: BACTERIA FEW /hpf (NONE SEEN); RED CELLS - URINE 0-5 /hpf (0-5); WHITE CELLS - URINE 25-50 /hpf (0-5); YEAST >1+ /hpf (NONE SEEN)
[2017-08-25 04:49] VITALS: BP 143/58
[2017-08-25 05:57] LABS: BASOPHILS 0.3 % (0-2); EOSINOPHILS 2.2 % (0-7); HEMATOCRIT 38.9 % (36.0-48.0); IMMATURE GRANULOCYTES 0.2 % (0-5); LYMPHOCYTES 34.5 % (15-50); MCH 30.7 pg (26.0-34.0); MCHC 33.4 g/dL (31.0-37.0); MCV 91.7 fL (80.0-100.0); MEAN PLATELET VOLUME 11.9 fL (7.4-10.4); NEUTROPHILS 54.8 % (40-80); PLATELET COUNT 216 10x3/uL (130-400); RBC 4.24 10x6/uL (4.00-5.40); RDW 14.2 % (11.5-14.5); WBC 8.7 10x3/uL (4.8-10.8)
[2017-08-25 06:12] LABS: ALBUMIN 2.9 g/dL (3.4-5.0); BILIRUBIN - TOTAL 0.3 mg/dL (0.2-1.3); CALCIUM 8.6 mg/dL (8.5-10.1); CREATININE - SERUM 0.9 mg/dL (0.6-1.3); POTASSIUM - SERUM 3.5 mmol/L (3.5-5.1); PROTEIN - SERUM 6.8 g/dL (6.4-8.2)
[2017-08-25 06:51] LABS: ANION GAP 15.8 mmol/L (8-16); CARBON DIOXIDE 22.7 mmol/L (21.0-32.0)
[2017-08-25 08:01] VITALS: BP 147/50
[2017-08-25] MEDS ORDERED: ISOSORBIDE MONO20 MG PO (11:11)
[2017-08-25 12:33] VITALS: BP 148/60
== END 2017-08-25 13:57 | disposition home or self-care (01) ==
LOC: D.ER 21:33 → D.M2 08-24 00:53 → OBSVTIME 08-24 00:53 → D.M2 08-24 00:53
PROVIDERS: Family Medicine; Internal Medicine Nephrology
DX: I25.119 Atherosclerotic heart disease of native coronary artery with unspecified angina pectoris (principal); Z95.5 Presence of coronary angioplasty implant and graft; T82.856A Stenosis of peripheral vascular stent, initial encounter; Y83.8 Other surgical procedures as the cause of abnormal reaction of the patient, or of later complication, without mention of misadventure at the time of the procedure; G44.209 Tension-type headache, unspecified, not intractable; E11.65 Type 2 diabetes mellitus with hyperglycemia; J98.11 Atelectasis; E78.5 Hyperlipidemia, unspecified; I10 Essential (primary) hypertension; Z86.73 Personal history of transient ischemic attack (TIA), and cerebral infarction without residual deficits; Z87.891 Personal history of nicotine dependence

== ENCOUNTER 2017-08-30 08:47 | Outpatient (CLI) | payer MEDICAID ==
[~2017-08-30] VITALS: Ht 157.5 cm; Wt 65.9 kg
--- NOTE | ~2017-08-30 | HP ---
PATIENT: TJ CRAIG MEDICAL RECORD: [id number] ACCOUNT: [id number] LOCATION:D. D.2122 : 60 ADMISSION DATE: 08/30/17 HISTORY AND PHYSICAL EXAMINATION ADMITTING DIAGNOSES: 1. Angina. 2. Coronary artery disease. 3. Recent percutaneous transluminal coronary angioplasty stent of the right coronary artery with concomitant disease LAD and circumflex. 4. Claudication. 5. Peripheral vascular disease. 6. Hypertension. 7. Hyperlipidemia. HISTORY OF PRESENT ILLNESS: Ms. Craig presented last week with anginal symptomatology as well as claudication. She was found to have critical disease of the RCA as well as critical disease of both SFAs. She underwent successful PTCA stent of the RCA. She continues to have anginal symptomatology, now brought back for intravascular ultrasound of the left circumflex, most likely intervention of the circumflex as well as evaluation of the LAD. She has significant claudication in both legs, has critical disease of both SFAs. We will proceed with transcatheter revascularization of the leg that hurts her the worst. PHYSICAL EXAMINATION: GENERAL APPEARANCE: Well-nourished, well-developed, appears stated age. Level of distress, comfortable. PSYCHIATRIC: Mental status, alert, normal affect. Orientation, oriented to time, place and person. EYES: Lids and conjunctiva, noninjected. No discharge, no pallor. ENT: Lips, teeth, gums, normal dentition. Oropharynx, no cyanosis, no pallor. NECK: Carotid arteries, bilateral normal upstroke, no bruits, no thrills. JUGULAR VEINS: No jugular venous pressure or distention. CERVICAL LYMPH NODES: Nontender, nonenlarged. THYROID: Not enlarged. Nontender. No nodules. LUNGS: Respiratory effort, unlabored. CHEST: Normal curvature. No thoracic deformity. No chest wall tenderness. Percussion, resonant. Auscultation, clear. No wheezes, no rales, no rhonchi. CARDIOVASCULAR: Precordial exam, nondisplaced. No heaves or pericardial thrills. Rate and rhythm, regular. Heart sounds, normal S1, normal S2. No S3, no gallop, no rub. Systolic murmur, not heard. Diastolic murmur, not heard. EXTREMITIES: No cyanosis, no edema. Peripheral pulses, full and equal in all extremities, except as noted. No bruits appreciated. ABDOMEN: Soft, nondistended. Normal aorta. No bruit. Nontender. No masses. Liver, nontender, no hepatomegaly. Spleen, nontender, no splenomegaly. MUSCULOSKELETAL: No joint tenderness. No joint swelling. No erythema. NEUROLOGICAL: Normal gait, normal strength, normal tone. SKIN: Warm and dry. REVIEW OF SYSTEMS: The patient reports easy bruising but reports no swollen glands. The patient reports no fever, no night sweats, no significant weight gain, no significant weight loss. No significant exercise tolerance. The patient reports no dry eyes, no irritation, no vision change. Patient reports no difficulty hearing and no ear pain. Patient reports no frequent nose bleeds HISTORY AND PHYSICAL [id number] CRAIG,ASHOK or nose and sinus problems. Patient reports on arm pain on exertion. No shortness of breath while lying down. No history of heart murmur. Patient reports no cough, no wheezing or coughing up blood. Patient reports no abdominal pain, no vomiting. Normal appetite. No diarrhea and not vomiting blood. No nausea and no constipation. Patient reports no incontinence. No difficulty urinating. No hematuria. No increased frequency. Patient reports no muscle aches. No weakness, no arthralgias, no back pain. No swelling of the extremities. Patient reports no abnormal mole, no jaundice, no rashes. Reports no loss of consciousness. No weakness and no numbness. No seizures, dizziness, or headaches. The patient reports no depression, no sleep disturbance, feeling safe in a relationship and no alcohol abuse. Patient reports on fatigue. Reports no runny nose or sinus pressure. No itching, no hives, and no frequent sneezing. OVERALL IMPRESSION: Anginal symptomatology with significant coronary artery disease, claudication symptomatology with significant peripheral vascular disease. We will proceed with transcatheter revascularization if possible. TRANSINT:[id number] Voice Confirmation ID: [id number] DOCUMENT ID: [id number] TRAE FORD MD at 0922 CC: [id number] DICTATION DATE: 08/30/17917 ORTHOPEDIC NURSE: 08/30/17926 [facility] [address] [place] [address]
--- NOTE | ~2017-08-30 | DS ---
PATIENT:TJ CRAIG :60 MEDICAL RECORD: [id number] DISCHARGE SUMMARY ADMISSION DATE: 08/30/17 DISCHARGE DATE: 08/31/17 DISCHARGE DIAGNOSES: 1. Angina. 2. Claudication. 3. Coronary artery disease. 4. PTCA and stent of left circumflex this admission. 5. Peripheral vascular disease. 6. ARCHERY EQUIPMENT REPAIRER and stent of right SFA this admission. 7. Diabetes. 8. Hypertension. 9. Hyperlipidemia. HISTORY AND HOSPITAL COURSE: Ms. Craig presents with anginal and claudication symptomatology, found to have significant disease of the left circumflex, was found to have significant disease of the right SFA. Underwent successful PTCA and stent of the circumflex, ARCHERY EQUIPMENT REPAIRER and stent of the SFA. Had problems with her groin oozing afterwards and stayed overnight. Her groin stabilized. She had no further bleeding, was discharged home with no change in medications as she is already on aspirin and Plavix. Follow up with [facility] in 1 month. TRANSINT:[id number] Voice Confirmation ID: [id number] DOCUMENT ID: [id number] TRAE FORD MD at 1323 CC: [id number] DICTATION DATE: 08/31/17 1113 PARCEL POST OFFICER: 08/31/17 1638 DEP CLI 08/31/[address] [address]
--- NOTE | ~2017-08-30 | HEMODYNAMI ---
PATIENT:TJ CRAIG MEDICAL RECORD: [id number] : 60 LOCATION:[facility] ADMISSION DATE: 08/30/17 Generatedon:08/30/201712:08 Patient name: TJ CRAIG Patient #: [id number] : 1960 Date of study: 08/30/2017 Page: Of Hemodynamic Procedure Report Patient Data Patient Demographics Procedure consent was obtained First Name: TJ Gender: Female Last Name: KIARA : 1960 Middle Initial: ALTA Age: 57 year(s) Patient #: [id number] Race: Other SSN: [id number] Additional ID: [id number] Contact details Address: [address] [place] [address] [address] State: [place] City: [place] Zip code: [address] Past Medical History Allergies Allergen Reaction Date Comments Reported Other allergy 12/21/2016 steroids Other allergy 02/16/2017 Cortico-Steroids Other allergy 08/09/2017 Prednisone, Steroids Other allergy 08/30/2017 Prednisone Admission Admission Data Admission Date: 08/30/2017 Admission Time: 8:47 Procedure Procedure Types Cath Procedure Diagnostic Procedure LHC LHC w/Coronaries FFR/IVUS Intra-Coronary IVUS Initial PCI Procedure Coronary Stent Miscellaneous Procedures Moderate Sedation up to 15 minutes Moderate Sedation up to 30 minutes Peripheral vascular Intervention Atherectomy Atherectomy Fem/Pop w/Plasty Procedure Description Procedure Date Procedure Date: 08/30/2017 Procedure Start Time: 11:19 Procedure End Time: 12:05 Procedure Staff Name Function Pelon Sy MD Performing Physician Seble Jefferson RT Monitor Brionna Rodriguez RT Scrub Carolina Bassett RN Nurse Gilbert Osullivan RT Shaper Machine Hand Jenny Javed RN Nurse Procedure Data Cath Procedure Fluoroscopy Diagnostic fluoroscopy Total fluoroscopy Time: time: 12.2 min 12.2 min Diagnostic fluoroscopy Total fluoroscopy dose: 636 dose: 636 mGy mGy Contrast Material Contrast Material Type Amount (ml) Isovue 300 159 Entry Location Entry Primary Successful Side Size Upsize Upsize Entry Closure Succes sful Closure Location (Fr) 1 (Fr) 2 (Fr) Remarks Device Remarks Femoral Left 6 Fr 6 Fr 6 Fr Exoseal artery Short Long Short Estimated blood loss: 10 ml Diagnostic catheters Device Type Used For End Catheter Placement MULTIPACK Pigtail 5 Fr Ventriculography catheter MULTIPACK JL 4.0 5Fr Procedure catheter MULTIPACK 3DRC 5Fr Procedure catheter DIAGNOSTIC UF 5Fr Procedure catheter ([id number]) Procedure Complications No complications Procedure Medications Medication Administration Route Dosage 0.9% NaCl I.V. 100 ml/hr Oxygen NC 2 l/min Lidocaine 2% added to field 20 Heparin Flush Bag added to field 2 bags (1000units/500ml NS) Plavix P.O. 75 mg Fentanyl I.V. 100 mcg Versed I.V. 2 mg Fentanyl I.V. 50 mcg Versed I.V. 1 mg Versed I.V. 1 mg Heparin Bolus I.V. 5000 units Heparin Bolus I.V. 38487 units Hemodynamics Rest Heart Rate: 63 (bpm) Pressure Samples Time Site Value (mmHg) Purpose Heart Use Rate(bpm) 11:22 LV 162/10,14 Snapshot 77 Snapshots Pre Cath Intra NCS Post Cath Vital Signs Time Heart Resp SPO2 etCO2 NIBP (mmHg) Rhythm Pain Sedation Rate (ipm) (%) (mmHg) Status Level (bpm) 10:55:10 64 18 100 33.6 176/73(121) NSR 0 (11) 10(A) , No pain 10:59:39 60 16 100 27.6 191/86(149) NSR 0 (11) 10(A) , No pain 11:04:15 64 19 99 8.9 190/72(115) NSR 0 (11) 10(A) , No pain 11:08:46 64 16 100 38.1 180/71(119) NSR 0 (11) 10(A) , No pain 11:14:13 64 19 100 41.8 168/62(104) NSR 0 (11) 10(A) , No pain 11:19:35 62 14 100 30.6 165/65(105) NSR 0 (11) 10(A) , No pain 11:23:53 67 16 99 9.7 148/64(102) NSR 0 (11) 10(A) , No pain 11:28:18 75 20 99 41.8 142/66(107) NSR 0 (11) 10(A) , No pain 11:33:37 77 19 100 44.8 161/61(93) NSR 0 (11) 10(A) , No pain 11:39:21 78 16 100 47 173/69(109) NSR 0 (11) 10(A) , No pain 11:43:51 77 16 100 44 180/68(111) NSR 0 (11) 10(A) , No pain 11:48:30 76 15 99 42.6 198/72(134) NSR 0 (11) 9(A) , No pain 11:52:56 70 17 99 38 163/61(108) NSR 0 (11) 9(A) , No pain 11:57:25 69 16 100 41.1 165/67(110) NSR 0 (11) 9(A) , No pain 12:01:53 73 20 99 18.6 149/63(109) NSR 0 (11) 9(A) , No pain 12:06:19 67 8 97 41.1 147/64(111) NSR 0 (11) 10(A) , No pain Medications Time Medication Route Dose Verified Delivered Reason Not es Effectiveness by by 10:46:45 0.9% NaCl I.V. 100 ml/hr Pelon Alvarado used for Tatiana Javed RN procedure 10:46:53 Oxygen NC 2 l/min Pelon Alvarado Per Tatiana Javed RN physician 10:46:59 Lidocaine 2% added 20ml vial Pelon Bird for local to Tatiana Sy MD anesthetic field 10:47:05 Heparin Flush added 2 bags Pelon Bird used for Bag to Tatiana Sy MD procedure (1000units/500ml field NS) 10:47:19 Plavix P.O. 75 mg Pelon Alvarado for Tatiana Javed RN antiplatelet therapy 11:10:41 Fentanyl I.V. 100 mcg Pelon Alvarado for sedation Tatiana Javed RN 11:10:48 Versed I.V. 2 mg Pelon Alvarado for sedation Tatiana Javed RN 11:21:47 Fentanyl I.V. 50 mcg Pelon Alvarado for sedation Tatiana Javed RN 11:21:56 Versed I.V. 1 mg Pelon Alvarado for sedation Tatiana Javed RN 11:23:29 Versed I.V. 1 mg Pelon Alvarado for sedation Tatiana Javed RN 11:25:42 Heparin Bolus I.V. 5000 units Pelon Alvarado for hu ified Tatiana Javed RN antiplatelet by therapy 11:39:26 Heparin Bolus I.V. 10,000units Pelon Alvarado for dr. tatiana Javed RN antiplatelet notified. therapy femstop placed. Procedure Log Time Note 10:41:24 Procedure type changed to Cath procedure, Diagnostic procedure, LHC, LHC w/Coronaries, FFR/IVUS, Intra-Coronary IVUS Initial, PCI procedure, Coronary Stent, Miscellaneous Procedures, Moderate Sedation up to 15 minutes, Moderate Sedation up to 30 minutes, Peripheral vascular Intervention, Atherectomy, Atherectomy Fem/Pop w/Plasty 10:42:28 Diagnostic Cath status Elective 10:42:33 Carolina Bassett RN sent for patient. Start room use. 10:42:35 Time tracking: Regular hours 10:42:40 Plan of Care:Hemodynamics will remain stable., Cardiac rhythm will remain stable., Comfort level will be maintained., Respiratory function will remain adequate., Patient/ family verbilizes understanding of procedure., Procedure tolerated without complication., Recovers from procedure without complications.. 10:46:45 0.9% NaCl 100 ml/hr I.V. was administered by Jenny Javed RN; used for procedure; 10:46:53 Oxygen 2 l/min NC was administered by Jenny Javed RN; Per physician; 10:46:59 Lidocaine 2% 20ml vial added to field was administered by Pelon Sy MD; for local anesthetic; 10:47:05 Heparin Flush Bag (1000units/500ml NS) 2 bags added to field was administered by Pelon Sy MD; used for procedure; 10:47:19 Plavix 75 mg P.O. was administered by Jenny Javed RN; for antiplatelet therapy; 10:53:45 Patient received from Pre/Post Procedure Room to [facility] 2 Alert and oriented. Tansferred to table in Supine position. 10:53:48 Warm blankets applied, and kingston hugger turned on for patient comfort. 10:53:49 Correct patient and procedure confirmed by team. 10:53:51 Signed procedure consent form obtained from patient. 10:53:52 ECG and BP/O2 sat monitors applied to patient. 10:53:53 Vital chart was started 10:53:54 Baseline sample Acquired. 10:53:58 Rhythm: sinus rhythm 10:54:00 Full Disclosure recording started 10:54:13 H&P Date Dictated: 08/30/2017 Within 30 days and on chart., H&P Addendum completed by physician on day of procedure. (MUST COMPLETE FOR ALL OUTPATIENTS). 10:54:15 Pre-procedure instructions explained to patient. 10:54:20 Family in waiting room. 10:54:22 Patient NPO since Midnight. 10:55:19 Patient allergic to Other allergyPrednisone 10:55:32 Is the patient allergic to Iodine/contrast media? No. 10:55:34 Was the patient premedicated? Yes 10:55:38 Is patient on blood thinner?Yes 10:55:42 ACC The patient was administered the following blood thiners within the last 24 hours: ACCPlavix 10:55:44 Patient diabetic? Yes. 10:55:56 If diabetic: On Metformin? Yes 10:56:00 If on Metformin: Last Dose? 08/29/2017 10:56:14 Snore? No 10:56:15 Sleep apnea? No 10:56:20 Dentures? No ? 10:56:36 IV patent on arrival in right forearm with 0.9% NaCl at [facility]. 10:57:12 Zero performed for pressure channel P1 10:57:21 Zero performed for pressure channel P1 10:57:31 Zero performed for pressure channel P1 10:57:42 Zero performed for pressure channel P1 10:57:59 Zero performed for pressure channel P1 10:58:14 Lab results completed and on chart. 10:58:19 Bilateral groins area was prepped with chlora-prep and draped in sterile fashion 10:58:21 Alarms reviewed by R. N. 10:58:23 Sharps counted by scrub and verified by R.N. 10:58:24 Physician paged 10:59:03 Use device set Femoral Dx 10:59:07 ACIST Syringe (69633) opened to sterile field. 10:59:08 Bag Decanter (2002S) opened to sterile field. 10:59:08 Medline Cath Pack ([id number]) opened to sterile field. 10:59:16 DIAGNOSTIC WIRE .035 260cm J wire (611176) opened to sterile field. 10:59:20 ACIST Hand Control (64400) opened to sterile field. 10:59:21 ACIST Manifold (71730) opened to sterile field. 10:59:23 Tegaderm 4 x 4 (1626W) opened to sterile field. 10:59:25 PERCUTANEOUS ENTRY 19GA needle opened to sterile field. 11:01:59 SHEATH 6FR [place] (ODQ516) opened to sterile field. 11:02:00 SHEATH 6FR Destination (RSR01) opened to sterile field. 11:08:49 INFLATOR Merit BasixCompak (GI1168) opened to sterile field. 11:08:55 DIAGNOSTIC Multipack 5Fr catheter set (QY3896) opened to sterile field. 11:09:22 Physician arrived 11::26 --------ALL STOP TIME OUT------ 11::27 Final Timeout: patient, procedure, and site verified with staff and physician. All members of the team are in agreement. 11:09:29 Bilateral groins site verified by team. 11:09:33 Physical assessment completed. ASA score P 3 - A patient with severe systemic disease as per Pelon Sy MD. 11:09:36 Sedation plan: IV Moderate Sedation Medication:Versed, Fentanyl 11:10:41 Fentanyl 100 mcg I.V. was administered by Jenny Javed RN; for sedation; 11:10:48 Versed 2 mg I.V. was administered by Jenny Javed RN; for sedation; 11:17:30 WHISPER 190cm wire ([id number]) opened to sterile field. 11:17:31 Hannah [place] Eagleye IVUS Catheter (42806P) opened to sterile field. 11:18:04 Procedure started. 11:19:48 Local anesthetic to left femerol artery with Lidocaine 2% by Pelon Sy MD.INITIAL ACCESS ONLY 11:20:00 A 6 Fr Short sheath was inserted into the Left Femoral artery 11:21:47 Fentanyl 50 mcg I.V. was administered by Jenny Javed RN; for sedation; 11:21:56 Versed 1 mg I.V. was administered by Jenny Javed RN; for sedation; 11:22:32 A MULTIPACK Pigtail 5 Fr catheter was advanced over the wire and used for Ventriculography. 11:22:38 LV angiography performed. 11:22:41 LV gram done using CORDOVA 11:23:02 EF : 60 % 11:23:05 Catheter removed. 11:23:19 A MULTIPACK JL 4.0 5Fr catheter was advanced over the wire and used for Procedure. 11:23:29 Versed 1 mg I.V. was administered by Jenny Javed RN; for sedation; 11:24:00 A MULTIPACK 3DRC 5Fr catheter was advanced over the wire and used for Procedure. 11:24:25 RCA angiography performed. 11:24:27 Catheter removed. 11:24:53 GUIDE 6FR XBLAD 3.5 catheter ([id number]) opened to sterile field. 11:25:16 6 Fr XBLAD3.5 guide catheter was inserted over the wire 11:25:20 Whisper wire advanced. 11::42 Heparin Bolus 5000 units I.V. was administered by Jenny Javed RN; for antiplatelet therapy; verified by 11:26:08 IVUS catheter advanced over wire. 11:27:22 IVUS catheter removed over wire. 11:29:20 Inflation Number: 1 A PERICO RX 3.0 x 38 stent ([id number]) was prepped and advanced across the Mid CX. The stent was deployed at 11 LEA for 0:13 (min:sec). 11:32:49 Inflation Number: 1 A PERICO RX 3.0 x 22 stent ([id number]) was prepped and advanced across the Prox CX. The stent was deployed at 15 LEA for 0:10 (min:sec). 11:33:23 Wire removed. 11:33:25 Guide catheter removed. 11:34:14 GLIDE WIRE ANGLE 260cm (NL3727) opened to sterile field. 11:34:38 CHOICE PT Extra Support J 300cm guide wire (1236732D0) opened to sterile field. 11:34:58 A DIAGNOSTIC UF 5Fr catheter ([id number]) was advanced over the wire and used for Procedure. 11:35:18 glide wire wire advanced. 11:36:13 Sheath upsized to a 6 Fr Long. 11:38:13 Right leg runoff performed. 11:38:45 pt ex support wire advanced. 11:39:26 Heparin Bolus 10,000units I.V. was administered by Jenny Javed RN; for antiplatelet therapy; notified. femstop placed. 11:41:07 Laser pass to Popliteal with Fluence 30 and Rate of 25. 11:41:56 A LASER Turbo-Power 2.0 atherectomy catheter (443538) was prepped and advanced across the Ostial Popliteal, Right lesion. Pass Number: 1 11:44:10 Laser pass to Popliteal with Fluence 30 and Rate of 25. 11:51:02 Laser removed 11:51:33 Stellar X drug coated baloon advanced 11:56:02 Inflation number: 1 A stellar ex 5.0x120 was prepped and advanced across the Ostial Popliteal, Right, then inflated to 13 LEA for 2:45 (min:sec). 11:56:26 Wire removed. 11:56:28 Guide catheter removed. 11:57:42 Sheath upsized to a 6 Fr Short. 11:57:42 Sheath removed intact; hemostasis achieved with Exoseal to the Left Femoral artery. 11:57:53 EXOSEAL 6Fr (EX600) opened to sterile field. 11:59:30 Procedure ended.(Physican Out) 11:59:49 FEMSTOP Gold (G71301) opened to sterile field. 12:00:03 Fluoroscopy time 12.20 minutes. 12:00:07 Flurop Dose total: 636 12:00:07 Fluoroscopy dose: 636 mGy 12:00:46 Contrast amount:Isovue 300 159ml. 12:00:48 Sharps counted by scrub and verified by R.N. 12:01:00 Post right femoral artery:oozing 12:01:08 Femstop placed over the right femoral artery at 170 mmHg. Hemostasis achieved. 12:01:10 Post Procedure Pulses reassessed and unchanged 12:01:15 Post-procedure physical assessment completed. ASA score P 3 - A patient with severe systemic disease as per Pelon Sy MD. 12:01:18 Post procedure rhythm: unchanged. 12:01:21 Estimated blood loss: 10 ml 12:01:22 Post procedure instruction explained to patient.Patient verbalizes understanding. 12:03:36 Procedure and supply charges have been captured, reviewed, submitted and are correct. 12:05:26 Procedure Complication : No complications 12:05:30 Vital chart was stopped 12:05:33 See physician's report for complete and final results. 12:05:36 Report given to Pre/Post Procedure Room. 12:05:38 Patient transfered to Pre/Post Procedure Room with Stretcher. 12:05:41 Procedure ended. 12:05:41 Full Disclosure recording stopped 12:05:45 End room use (Document Last) Intervention Summary Intervention Notes Time ActionType Lesion and Equipment Used Action# Pressure Duration Attributes 11:29:20 Place stent Mid CX PERICO RX 3.0 x 1 11 00:13 38 stent ([id number]) 11:32:49 Place stent Prox CX PERICO RX 3.0 x 1 15 00:10 22 stent ([id number]) 11:41:56 Atherectomy Ostial LASER 00:00 Popliteal, Turbo-Power Right 2.0 atherectomy catheter ([id number]) 11:56:02 Inflate Ostial stellar ex 1 13 02:45 balloon Popliteal, 5.0x120 Right Device Usage Item Name Manufacture Quantity Catalog Number Hospital Part Current M inimal Lot# / Charge Number Stock Stock Serial# Code ACIST Syringe Acist 1 53152 051769 597190 802862 2 0 (95481) Medical Systems Inc Bag Decanter Microtek 1 2001S 768715 49247 097439 5 () Medical Inc. Medline Cath Cardinal 1 [id number] 402781 43996 128497 5 [facility] ([id number]) DIAGNOSTIC St Remy 1 297075 698482 296399 427944 3 0 WIRE .035 260cm J wire (279354) ACIST Hand Acist 1 57659 516213 705961 293012 5 Control Medical (42311) Systems Inc ACIST Manifold Acist 1 49977 027849 588718 527769 5 (44202) Medical Systems Inc Tegaderm 4 x 4 3M 1 1626W 329723 230951 422999 5 (1626W) PERCUTANEOUS Cook Medical 1 Y47290 790453 507981 5 ENTRY 19GA needle SHEATH 6FR Terumo 1 AAI726 386425 803664 853121 4 0 [place] (BWR688) SHEATH 6FR Terumo 1 RSR01 341359 55818 201262 5 Destination (RSR01) INFLATOR Merit Merit 1 SP9638 830581 360914 151862 1 5 [employer]Leaps (HP0893) DIAGNOSTIC Cardinal 1 XN3573 512888 61047 669375 3 0 Multipack 5Fr Health catheter set (PG4767) WHISPER 190cm Zamudio 1 [id number] 982724 880648 697987 5 wire Vascular (5636981IM) Hannah Hannah 1 65225N 219743 396497 450276 8 [place] Eagleye IVUS Catheter (50200E) MULTIPACK Cardinal 1 742037 5 Pigtail 5 Fr Health catheter MULTIPACK JL Cardinal 1 444942 5 4.0 5Fr Health catheter MULTIPACK 3DRC Cardinal 1 649480 5 5Fr catheter Health GUIDE 6FR Cardinal 1 [id number] 889699 723373 602205 1 0 XBLAD 3.5 Health catheter (68919565) PERICO RX 3.0 x Medtronic 1 [id number] 921368 3752364 019547 5 [id number] 38 stent ([id number]) PERICO RX 3.0 x Medtronic 1 [id number] 889711 2287908 230661 5 [id number] 22 stent ([id number]) GLIDE WIRE Terumo 1 IK0425 427399 477269 383610 5 ANGLE 260cm (PQ2895) CHOICE PT Shoshoni 1 [id number] 440928 230257 060699 5 Extra Support Scientific J 300cm guide wire (9198519D7) DIAGNOSTIC UF Cardinal 1 [id number] 052499 011216 722616 1 0 5Fr catheter Health (072780C1) LASER Dioni 1 420-050 501018 3456811 867515 5 [id number] Simple Star 2.0 (959577) atherectomy catheter (478851) stellar ex Unknown 1 0 0 5.0x120 EXOSEAL 6Fr Cardinal 1 EX600 827235 260656 494833 1 0 (EX600) Health FEMSTOP Gold St Remy 1 J09127 670850 291900 447134 5 (V61750) Signature Audit [place] Stage Time Signature Unsigned Intra-Procedure 08/30/2017 Seble Jefferson 12:08:38 PM RT(R) Signatures Monitor : Seble Jefferson Signature : RT Date : Time : [facility] [address] [place] [address]
--- NOTE | ~2017-08-30 | OP ---
PATIENT NAME: TJ CRAIG MEDICAL RECORD: [id number] :60 LOCATION:D.CAT ADMISSION DATE: SURGEON: TRAE FORD MD DATE OF OPERATION: 08/30/2017 PROCEDURES: 1. Laser atherectomy, popliteal right. 2. PROGRAMMER, drug-eluting balloon, popliteal right. 3. Unilateral lower extremity angiography. INDICATIONS: Claudication and peripheral vascular disease. PROCEDURE IN DETAIL: After informed consent was obtained and after detailed explanation of risks, benefits as well as alternative therapies, the patient elected to proceed with angiogram and angioplasty. The left femoral area had a preexisting sheath. All catheters exchanged through this sheath. FINDINGS: There is a previously placed stent in the popliteal. There is over 90% in-stent restenosis. This was addressed with the 2.0 laser catheter, multiple passes were made. Ballooning was undertaken with a 5.0 Stellarex drug-eluting balloon. Result was 0% residual stenosis with confucianism of brisk distal flow. IMPRESSION: Successful drug-eluting balloon percutaneous transluminal angioplasty, laser atherectomy of the right popliteal going from 90% initial stenosis to 0% residual stenosis. TRANSINT:[id number] Voice Confirmation ID: [id number] DOCUMENT ID: [id number] TRAE FORD MD at 1144 CC: [id number] DICTATION DATE: 08/30/17 1206 BAND LINING BANDER: 08/30/17 1241 DEP CLI 08/31/17 [place] [id number]
--- NOTE | ~2017-08-30 | OP ---
PATIENT NAME: TJ CRAIG MEDICAL RECORD: [id number] :60 LOCATION:D.CAT ADMISSION DATE: SURGEON: TRAE FORD MD DATE OF OPERATION: 08/30/2017 PROCEDURES: 1. PTCA stent, left circumflex. 2. Left heart catheterization. 3. Selective coronary angiography. 4. Left ventriculogram. 5. Intravascular ultrasound. INDICATIONS: Angina and coronary artery disease. PROCEDURE IN DETAIL: After informed consent was obtained and after detailed explanation of risks, benefits as well as alternative therapies, the patient elected to proceed with angiogram and angioplasty. The right femoral area was prepped and draped in normal sterile fashion. Right femoral artery was cannulated via modified Seldinger technique with placement of 6-Maltese sheath. All catheters exchanged through this sheath. FINDINGS: Left ventriculogram was performed in standard 30-degree CORDOVA view, reveals good cardiac wall motion throughout all segments. Overall ejection fraction estimated at 60%. SELECTIVE CORONARY ANGIOGRAPHY: 1. Left main showed no significant angiographic disease. 2. Left anterior descending has previously placed stents. These are widely patent with no significant restenosis. There is moderate diffuse disease elsewise throughout the distal LAD, unchanged from previous angiography. 3. Left circumflex has multiple areas of 80% stenosis, confirmed by intravascular ultrasound. 4. The right coronary has previously placed stents. These are widely patent. Elsewise, there is moderate diffuse disease throughout. PTCA STENT OF THE LEFT CIRCUMFLEX: The stents used were 3.0 x 38 and 3.0 x 22, both Clive stents. Result was 0% residual stenosis. OVERALL IMPRESSION: Successful percutaneous transluminal coronary angioplasty stent of the left circumflex going from multiple areas of 80+ percent initial stenosis to 0% residual stenosis. TRANSINT:[id number] Voice Confirmation ID: [id number] DOCUMENT ID: [id number] TRAE FORD MD at 1144 CC: [id number] DICTATION DATE: 08/30/17 1206 CONSULTING SALES EXECUTIVE: 08/30/17 1239 DEP CLI 08/31/[address] [id number]
[~2017-08-30 08:47] MED LIST changes: +ISOSORBIDE MONO20 MG PO
[2017-08-30 09:14] VITALS: BMI 26.6
[2017-08-30 09:22] LABS: BASOPHILS 0.2 % (0-2); EOSINOPHILS 1.9 % (0-7); HEMATOCRIT 42.2 % (36.0-48.0); HEMOGLOBIN 14.3 g/dL (12-16); IMMATURE GRANULOCYTES 0.2 % (0-5); LYMPHOCYTES 33.5 % (15-50); MCH 31.2 pg (26.0-34.0); MCHC 33.9 g/dL (31.0-37.0); MCV 91.9 fL (80.0-100.0); MEAN PLATELET VOLUME 11.3 fL (7.4-10.4); NEUTROPHILS 56.2 % (40-80); PLATELET COUNT 241 10x3/uL (130-400); RBC 4.59 10x6/uL (4.00-5.40); RDW 13.7 % (11.5-14.5)
[2017-08-30 09:29] LABS: CALC OSMOLALITY 281 mosm/kg (275-300); CALCIUM 8.7 mg/dL (8.5-10.1); CARBON DIOXIDE 23.4 mmol/L (21.0-32.0); CHLORIDE - SERUM 103 mmol/L (98-107); CREATININE - SERUM 0.8 mg/dL (0.6-1.3); GLUCOSE 241 mg/dL (74-106); POTASSIUM - SERUM 4.2 mmol/L (3.5-5.1); SODIUM 136 mmol/L (136-145); UREA NITROGEN 19 mg/dL (7-18); eGFR NON AFRICAN AMERICAN 78 mL/min (90-120)
[2017-08-30 21:00] VITALS: BP 134/61
[2017-08-31 00:34] VITALS: BP 134/61; Ht 157.5 cm; Wt 65.9 kg
[2017-08-31 06:04] VITALS: BP 165/49
[2017-08-31 08:08] VITALS: BP 152/65
== END 2017-08-31 11:32 | disposition home or self-care (01) ==
LOC: D.CATH 08:47 → D.M2 18:55 → D.CATH 08-31 11:32
PROVIDERS: Internal Medicine Interventional Cardiology
DX: I25.119 Atherosclerotic heart disease of native coronary artery with unspecified angina pectoris (principal); I70.219 Atherosclerosis of native arteries of extremities with intermittent claudication, unspecified extremity; I10 Essential (primary) hypertension; E78.5 Hyperlipidemia, unspecified; E11.9 Type 2 diabetes mellitus without complications; Z01.812 Encounter for preprocedural laboratory examination
CPT/HCPCS: 37225; 93458; 92978; C9600

== ENCOUNTER 2017-09-03 11:37 | Observation (INO) | payer MEDICAID ==
[~2017-09-03] VITALS: Ht 157.5 cm; Wt 65.8 kg
--- NOTE | ~2017-09-03 | HEMODYNAMI ---
PATIENT:TJ CRAIG MEDICAL RECORD: [id number] : 60 LOCATION:[facility].[address] [facility]# [id number] ADMISSION DATE: 09/03/17 Generatedon:09/04/201711:44 Patient name: TJ CRAIG Patient #: [id number] : 1960 Date of study: 09/04/2017 Page: Of Hemodynamic Procedure Report Patient Data Patient Demographics Procedure consent was obtained First Name: TJ Gender: Female Last Name: KIARA : 1960 [facility] Initial: ALTA Age: 57 year(s) Patient #: [id number] Race: Other SSN: [id number] Additional ID: [id number] Contact details Address: [address] [place] [address] [address] State: [place] City: [place] Zip code: [address] Past Medical History Allergies Allergen Reaction Date Comments Reported Other allergy 12/21/2016 steroids Other allergy 02/16/2017 Cortico-Steroids Other allergy 08/09/2017 Prednisone, Steroids Other allergy 08/30/2017 Prednisone Other allergy 09/04/2017 PREDNISONE, STEROIDS Admission Admission Data Admission Date: 09/03/2017 Admission Time: 13:23 Room #: 2117 Procedure Procedure Types Cath Procedure Diagnostic Procedure [facility] w/Coronaries PCI Procedure Coronary Stent Coronary Stent Initial Miscellaneous Procedures Moderate Sedation up to 15 minutes Procedure Description Procedure Date Procedure Date: 09/04/2017 Procedure Start Time: 11:26 Procedure End Time: 11:43 Procedure Staff Name Function Pelon Sy MD Performing Physician Everardo Fraga RN Nurse Scooter Wilson RT Scrub Xi Rey RT Monitor Procedure Data Cath Procedure Fluoroscopy Diagnostic fluoroscopy Total fluoroscopy Time: 2.6 time: 2.6 min min Diagnostic fluoroscopy Total fluoroscopy dose: 562 dose: 562 mGy mGy Contrast Material Contrast Material Type Amount (ml) Isovue 300 85 Entry Location Entry Primary Successful Side Size Upsize Upsize Entry Closure Succes sful Closure Location (Fr) 1 (Fr) 2 (Fr) Remarks Device Remarks Femoral Right 5 Fr 6 Fr artery Short Estimated blood loss: 10 ml Diagnostic catheters Device Type Used For End Catheter Placement MULTIPACK Pigtail 5 Fr Procedure catheter MULTIPACK JL 4.0 5Fr Procedure catheter MULTIPACK 3DRC 5Fr Procedure catheter Procedure Complications No complications Procedure Medications Medication Administration Route Dosage 0.9% NaCl I.V. 100 ml/hr Oxygen NC 2 l/min Heparin Flush Bag added to field 2 bags (1000units/500ml NS) Lidocaine 2% added to field 20 Versed I.V. 2 mg Fentanyl I.V. 100 mcg Versed I.V. 1 mg Heparin Bolus I.V. 4000 units Brilinta P.O. 180 mg Hemodynamics Rest Heart Rate: 67 (bpm) Snapshots Pre Cath Intra NCS Post Cath Vital Signs Time Heart Resp SPO2 etCO2 NIBP (mmHg) Rhythm Pain Sedation Rate (ipm) (%) (mmHg) Status Level (bpm) 10:58:23 63 15 100 31.1 153/59(106) NSR 0 (11) 10(A) , No pain 11:03:16 64 13 99 8.3 145/57(112) NSR 0 (11) 10(A) , No pain 11:08:05 64 14 98 43.9 130/49(99) NSR 0 (11) 10(A) , No pain 11:12:52 66 19 99 48.5 137/61(113) NSR 0 (11) 10(A) , No pain 11:17:41 64 15 99 46.2 137/51(96) NSR 0 (11) 10(A) , No pain 11:23:10 65 16 99 46.9 151/58(109) NSR 0 (11) 10(A) , No pain 11:27:59 61 16 99 34.1 145/56(98) NSR 0 (11) 10(A) , No pain 11:33:29 73 18 99 42.4 134/60(93) NSR 0 (11) 10(A) , No pain 11:38:59 74 18 99 44.6 153/56(105) NSR 0 (11) 10(A) , No pain 11:43:50 74 9 99 44.6 151/66(106) NSR 0 (11) 10(A) , No pain Medications Time Medication Route Dose Verified Delivered Reason Notes Effectiveness by by 10:59:22 0.9% NaCl I.V. 100 Everardo Everardo Per physician ml/hr Flakito Fraga RN RN 10:59:35 Oxygen NC 2 Everardo Everardo Per physician l/min Flakito Fraga RN RN 10:59:55 Heparin Flush added 2 Everardo Everardo used for Bag to bags Flakito Fraga procedure (1000units/500ml field RN RN NS) 11:00:07 Lidocaine 2% added 20ml Everardo Everardo for local to vial Lorigan Flakito anesthetic field RN RN 11:24:43 Versed I.V. 2 mg Everardo Everardo for sedation Flakito Fraga RN RN 11:24:53 Fentanyl I.V. 100 Everardo Everardo for sedation mcg Flakito Fraga RN RN 11:29:05 Versed I.V. 1 mg Everardo Everardo for sedation Flakito Fraga RN RN 11:35:18 Heparin Bolus I.V. 4000 Everardo Everardo for units Flakito Fraga anticoagulation RN RN 11:39:48 Brilinta P.O. 180 Everardo Everardo for mg Lorroger Fraga anticoagulation RN oil tanker captain Log Time Note 10:48:31 Everardo Fraga RN sent for patient. Start room use. 10:48:32 Time tracking: Regular hours 10:48:36 Plan of Care:Hemodynamics will remain stable., Cardiac rhythm will remain stable., Comfort level will be maintained., Respiratory function will remain adequate., Patient/ family verbilizes understanding of procedure., Procedure tolerated without complication., Recovers from procedure without complications.. 10:49:31 Lab Result : Creatinine 1.1 mg/dl 10:49:31 Lab Result : BUN 20 mg/dl 10:49:31 Lab Result : Hematocrit 43.2 % 10:49:31 Lab Result : Hemoglobin 14.7 g/dl 10:49:35 Diagnostic Cath status Elective 10:49:43 Patient received from PCU to CCL 1 Alert and oriented. Tansferred to table in Supine position. 10:49:43 Warm blankets applied, and kingston hugger turned on for patient comfort. 10:49:44 Correct patient and procedure confirmed by team. 10:49:45 Signed procedure consent form obtained from patient. 10:49:57 H&P Date Dictated: 09/03/2017 Within 30 days and on chart.. 10:49:58 Pre-procedure instructions explained to patient. 10:49:59 Pre-op teaching completed and patient verbalized understanding. 10:50:08 Family unavailable. 10:50:10 Patient NPO since Midnight. 10:57:20 ECG and BP/O2 sat monitors applied to patient. 10:57:21 Vital chart was started 10:57:24 Rhythm: sinus rhythm 10:57:26 Full Disclosure recording started 10:59:22 0.9% NaCl 100 ml/hr I.V. was administered by Everardo Fraga RN; Per physician; 10:59:35 Oxygen 2 l/min NC was administered by Everardo Fraga RN; Per physician; 10:59:55 Heparin Flush Bag (1000units/500ml NS) 2 bags added to field was administered by Everardo Fraga RN; used for procedure; 11:00:07 Lidocaine 2% 20ml vial added to field was administered by Everardo Fraga RN; for local anesthetic; 11:04:29 Patient allergic to Other allergyPREDNISONE, STEROIDS 11:04:34 Is the patient allergic to Iodine/contrast media? No. 11:04:35 Is patient on blood thinner?No 11:04:39 Patient diabetic? Yes. 11:05:04 If diabetic: On Metformin? Yes 11:05:08 If on Metformin: Last Dose? 09/02/2017 11:05:18 Patient not . Patient is over age 55. 11:05:44 Previous problem with sedation/anesthesia? No ? 11:05:45 Snore? No 11:05:46 Sleep apnea? No 11:05:48 Deviated septum? No 11:05:49 Opens mouth fully? Yes 11:05:50 Sticks out tongue? Yes 11:05:53 Airway obstruction? No ? 11:05:55 Dentures? No ? 11:05:58 Pre procedure: right dorsailis pedis pulse 2+ Normal; easily identifiable; not easily obliterated 11:06:01 Patient pain scale 0/10 ?. 11:06:12 IV patent on arrival in left hand with 0.9% NaCl at O. 11:06:16 Lab results completed and on chart. 11:06:20 Bilateral groins area was prepped with chlora-prep and draped in sterile fashion 11:06: Alarms reviewed by R. N. 11:06:26 Sharps counted by scrub and verified by R.N. 11:07:10 Procedure type changed to Cath procedure, Diagnostic procedure, LHC, LHC w/Coronaries, PCI procedure, Coronary Stent, Coronary Stent Initial, Miscellaneous Procedures, Moderate Sedation up to 15 minutes 11:13:03 Baseline sample Acquired. 11:13:07 Physician paged 11:13:20 Use device set Femoral Dx 11:13:23 ACIST Syringe (32375) opened to sterile field. 11:13:24 Bag Decanter (2002S) opened to sterile field. 11:13:25 ACIST Hand Control (93596) opened to sterile field. 11:13:26 ACIST Manifold (00568) opened to sterile field. 11:13:27 Tegaderm 4 x 4 (1626W) opened to sterile field. 11:13:28 Medline Cath Pack ([id number]) opened to sterile field. 11:13:29 SHEATH 5FR [place] (ALS476) opened to sterile field. 11:13:29 DIAGNOSTIC WIRE .035 260cm J wire (291384) opened to sterile field. 11:13:30 DIAGNOSTIC Multipack 5Fr catheter set (BE8268) opened to sterile field. 11:13:32 PERCUTANEOUS ENTRY 19GA needle opened to sterile field. 11:14:07 Zero performed for pressure channel P1 11:23:49 Physician arrived 11:23:49 --------ALL STOP TIME OUT------ 11:23:51 Final Timeout: patient, procedure, and site verified with staff and physician. All members of the team are in agreement. 11:24:07 Right Radial & Right Groin site verified by team. 11:24:11 Physical assessment completed. ASA score P 2 - A patient with mild systemic disease as per Pelon Sy MD. 11:24:16 Sedation plan: IV Moderate Sedation Medication:Versed, Fentanyl 11::43 Versed 2 mg I.V. was administered by Everardo Fraga RN; for sedation; 11:24:53 Fentanyl 100 mcg I.V. was administered by Everardo Fraga RN; for sedation; 11::43 Procedure started. 11:26:46 Local anesthetic to right femoral artery with Lidocaine 2% by Pelon Sy MD.INITIAL ACCESS ONLY 11:28:31 A 5 Fr sheath was inserted into the Right Femoral artery 11:29:02 A MULTIPACK Pigtail 5 Fr catheter was advanced over the wire and used for Procedure. 11:29:05 Versed 1 mg I.V. was administered by Everardo Fraga RN; for sedation; 11:29:19 LV gram done using CORDOVA 11:29:22 Injector settings: Ml/sec: 10, Volume: 20, 11:29:54 EF : 60 % 11:29:55 Catheter removed. 11:30:00 A MULTIPACK JL 4.0 5Fr catheter was advanced over the wire and used for Procedure. 11:30:46 LCA angiography performed. 11:31:42 Catheter removed. 11:31:50 A MULTIPACK 3DRC 5Fr catheter was advanced over the wire and used for Procedure. 11:32:27 RCA angiography performed. 11:32:28 Catheter removed. 11:33:20 GUIDE 6FR XB 3.5 catheter ([id number]) opened to sterile field. 11:33:26 INFLATOR [place]it BasixCompak (VW8804) opened to sterile field. 11:33:35 CHOICE PT Extra Support 182cm wire ([id number]) opened to sterile field. 11:33:41 SHEATH 6FR [place] (GEC929) opened to sterile field. 11:33:49 Sheath upsized to a 6 Fr Short. 11:34:52 6 Fr XB 3.5 guide catheter was inserted over the wire 11:34:56 CHOICE PT wire advanced. 11:35:06 Wire advanced across lesion. 11:35:18 Heparin Bolus 4000 units I.V. was administered by Everardo Fraga RN; for anticoagulation; 11:36:35 Inflation Number: 1 A INTEGRITY RX 3.5 x 09 stent ([id number]) was prepped and advanced across the Prox CX. The stent was deployed at 15 LEA for 0:10 (min:sec). 11:36:56 Stent catheter was removed intact over wire. 11:36:58 Wire removed. 11:36:59 Guide catheter removed. 11:37:09 EXOSEAL 6Fr (EX600) opened to sterile field. 11:38:40 Procedure ended.(Physican Out) 11:38:44 Fluoroscopy time 02.60 minutes. 11:38:49 Fluoroscopy dose: 562 mGy 11:38:49 Flurop Dose total: 562 11:38:53 Contrast amount:Isovue 300 85ml. 11:38:54 Sharps counted by scrub and verified by R.N. 11:38:55 Insertion/operative site no bleeding no hematoma. 11:38:58 Post-op/insertion site Right Femoral artery dressed using a 4 x 4 and Tegaderm. 11:39:03 Post right femoral artery:stable, soft, clean and dry 11:39:09 Post procedure: right dorsailis pedis pulse 2+ Normal; easily identifiable; not easily obliterated. 11:39:12 Post-procedure physical assessment completed. ASA score P 2 - A patient with mild systemic disease as per Pelon Sy MD. 11:39:16 Post procedure rhythm: unchanged. 11:39:20 Estimated blood loss: 10 ml 11:39:21 Post procedure instruction explained to patient.Patient verbalizes understanding. 11:39:22 Patient needs reinforcement of post procedure teaching. 11:39:48 Brilinta 180 mg P.O. was administered by Everardo Fraga RN; for anticoagulation; 11:40:13 Procedure and supply charges have been captured, reviewed, submitted and are correct. 11:40:15 Procedure Complication : No complications 11:43:08 Vital chart was stopped 11:43:11 See physician's report for complete and final results. 11:43:14 Report given to PCU. 11:43:22 Patient transfered to PCU with Bed. 11:43:25 Procedure ended. 11:43:25 Full Disclosure recording stopped 11:43:34 End room use (Document Last) Intervention Summary Intervention Notes Time ActionType Lesion and Equipment Action# Pressure Duration Attributes Used 11:36:35 Place stent Prox CX INTEGRITY RX 1 15 00:10 3.5 x 09 stent ([id number]) Device Usage Item Name Manufacture Quantity Catalog Number Hospital Part Current Mini unity hospital Lot# / Charge Number Stock Stock Serial# Code ACIST Acist 1 37709 143133 021270 948981 20 Syringe Medical (95785) Systems Inc Bag Decanter Microtek 1 2001S 983911 52221 421753 5 () Medical Inc. ACIST Hand Acist 1 20920 909099 654273 389524 5 Control Medical (44238) HopeLab Inc ACIST Acist 1 30154 333390 601628 273063 5 99 Fahrenheit Medical (13225) Systems Inc Tegaderm 4 x 3M 1 1626W 883882 596056 254229 5 4 (1626W) Medline Cath Cardinal 1 [id number] 917884 80373 613371 5 Pack Health ([id number]) SHEATH 5FR Terumo 1 JCT472 136400 513229 520488 40 [place] (ALT887) DIAGNOSTIC St Remy 1 097389 547934 112312 105572 30 WIRE .035 260cm J wire (888076) DIAGNOSTIC Cardinal 1 NR3280 915432 30930 861957 30 Multipack Health 5Fr catheter set (VV7152) PERCUTANEOUS Cook [facility] 1 O60278 548542 495060 5 ENTRY 19GA needle MULTIPACK Cardinal 1 733339 5 Pigtail 5 Fr Health catheter MULTIPACK JL Cardinal 1 558639 5 4.0 5Fr Health catheter MULTIPACK Cardinal 1 936016 5 3DRC 5Fr Health catheter GUIDE 6FR XB Cardinal 1 [id number] 517347 152014 979032 2 3.5 catheter OneBuckResume ([id number]) CHOICE PT [place] 1 [id number] 401918 621181 341241 5 Extra Scientific Support 182cm wire ([id number]) SHEATH 6FR Terumo 1 YZY151 923065 497915 254705 40 [place] (GME795) INTEGRITY RX Medtronic 1 [id number] 724048 041059 699682 5 [id number] 3.5 x 09 stent ([id number]) EXOSEAL 6Fr Cardinal 1 EX600 906185 053493 873417 10 (EX600) Health INFLATOR [facility] 1 OQ5539 294586 042297 787251 15 [facility] BasixCompak (OF4848) Signature Audit Hazel Hurst Stage Time Signature Unsigned Intra-Procedure 09/04/2017 Xi Rey 11:44:15 AM RT(R) Signatures Monitor : Xi Rey Signature : RT Date : Time : [facility] [address] [place], [place] [id number]
--- NOTE | ~2017-09-03 | DS ---
PATIENT:TJ CRAIG :60 MEDICAL RECORD: [id number] DISCHARGE SUMMARY ADMISSION DATE: 09/03/17 DISCHARGE DATE: 09/04/17 DIAGNOSES: 1. Unstable angina. 2. Coronary artery disease. 3. Status post multivessel PTCA and stent. 4. Plavix noncompliance. 5. Peripheral vascular disease. 6. Claudication. 7. Diabetes. 8. Hypertension. HOSPITAL COURSE: Ms. Craig underwent PTCA and stent of her left circumflex and RCA in the last few weeks. She returns with anginal symptomatology. She has not been on her Plavix since last week. She states that she had to order it and she has not ordered it as of yet. PHYSICAL EXAMINATION: GENERAL APPEARANCE: Well-nourished, well-developed, appears stated age. Level of distress, comfortable. PSYCHIATRIC: Mental status, alert, normal affect. Orientation, oriented to time, place and person. EYES: Lids and conjunctiva, noninjected. No discharge, no pallor. ENT: Lips, teeth, gums, normal dentition. Oropharynx, no cyanosis, no pallor. NECK: Carotid arteries, bilateral normal upstroke, no bruits, no thrills. JUGULAR VEINS: No jugular venous pressure or distention. CERVICAL LYMPH NODES: Nontender, nonenlarged. THYROID: Not enlarged. Nontender. No nodules. LUNGS: Respiratory effort, unlabored. CHEST: Normal curvature. No thoracic deformity. No chest wall tenderness. Percussion, resonant. Auscultation, clear. No wheezes, no rales, no rhonchi. CARDIOVASCULAR: Precordial exam, nondisplaced. No heaves or pericardial thrills. Rate and rhythm, regular. Heart sounds, normal S1, normal S2. No S3, no gallop, no rub. Systolic murmur, not heard. Diastolic murmur, not heard. EXTREMITIES: No cyanosis, no edema. Peripheral pulses, full and equal in all extremities, except as noted. No bruits appreciated. ABDOMEN: Soft, nondistended. Normal aorta. No bruit. Nontender. No masses. Liver, nontender, no hepatomegaly. Spleen, nontender, no splenomegaly. MUSCULOSKELETAL: No joint tenderness. No joint swelling. No erythema. NEUROLOGICAL: Normal gait, normal strength, normal tone. SKIN: Warm and dry. REVIEW OF SYSTEMS: The patient reports easy bruising but reports no swollen glands. The patient reports no fever, no night sweats, no significant weight gain, no significant weight loss. No significant exercise tolerance. The patient reports no dry eyes, no irritation, no vision change. Patient reports no difficulty hearing and no ear pain. Patient reports no frequent nose bleeds or nose and sinus problems. Patient reports on arm pain on exertion. No shortness of breath while lying down. No history of heart murmur. Patient reports no cough, no wheezing or coughing up blood. Patient reports no abdominal pain, no vomiting. Normal appetite. No diarrhea and not vomiting blood. No nausea and no constipation. Patient reports no incontinence. No difficulty urinating. No hematuria. No increased frequency. Patient reports DISCHARGE SUMMARY REPORT [id number] TJ CRAIG no muscle aches. No weakness, no arthralgias, no back pain. No swelling of the extremities. Patient reports no abnormal mole, no jaundice, no rashes. Reports no loss of consciousness. No weakness and no numbness. No seizures, dizziness, or headaches. The patient reports no depression, no sleep disturbance, feeling safe in a relationship and no alcohol abuse. Patient reports on fatigue. Reports no runny nose or sinus pressure. No itching, no hives, and no frequent sneezing. OVERALL IMPRESSION: Anginal symptomatology. She underwent cardiac catheterization revealing significant hazy stenosis of the left circumflex, most likely thrombus based secondary to Plavix noncompliance. She did undergo successful PTCA and stent of the left circumflex. No further anginal symptomatology. Discharged home with Brilinta samples given and she will order her Plavix. TRANSINT:[id number] Voice Confirmation ID: [id number] DOCUMENT ID: [id number] TRAE FORD MD at 1324 CC: [id number] DICTATION DATE: 09/04/17 1141 AUTOMOTIVE LOT ATTENDANT: 09/05/17 0635 DIS IN 09/04/17 [place] [address] [place] [address]
--- NOTE | ~2017-09-03 | OP ---
PATIENT NAME: TJ CRAIG MEDICAL RECORD: [id number] :60 LOCATION:D.M2 D.2117 ADMISSION DATE:09/03/17 SURGEON: TRAE FORD MD DATE OF OPERATION: 09/04/2017 PROCEDURES: 1. PTCA stent left circumflex. 2. Left heart catheterization. 3. Selective coronary angiography. 4. Left ventriculogram. INDICATION: Angina, coronary artery disease, previous PTCA stent, Plavix noncompliance. DESCRIPTION OF PROCEDURE: Informed consent obtained and after a detailed explanation of the risks, benefits as well as alternative therapies, the patient elected to proceed with angiogram and angioplasty. The right femoral area was prepped and draped in normal sterile fashion. The right femoral artery was cannulated via modified Seldinger technique with placement of 6-[place] sheath. All catheters exchanged through this sheath. FINDINGS: The left ventriculogram was performed in standard 30-degree CORDOVA view, reveals good cardiac wall motion throughout all segments. Overall ejection fraction estimated 60%. SELECTIVE CORONARY ANGIOGRAPHY: 1. Left main is with no significant angiographic disease. 2. Left anterior descending has previously placed stents, these are widely patent with no significant restenosis. No disease elsewise throughout the LAD or its branches. 3. Left circumflex has previously placed stents, these are widely patent. There is a hazy area proximally, this is unchanged from previous angiography. This is most likely thrombus based from the Plavix noncompliance. 4. The right coronary artery has previously placed stents, these are widely patent with no significant restenosis. No disease elsewise throughout the RCA or its branches. PTCA STENT OF THE LEFT CIRCUMFLEX: The stent used was a 3.5 x 8 mm Integrity. Result was 0% residual stenosis. OVERALL IMPRESSION: Successful percutaneous transluminal coronary angioplasty stent of the left circumflex going from 80% initial stenosis to 0% residual. TRANSINT:[id number] Voice Confirmation ID: [id number] DOCUMENT ID: [id number] TRAE FORD MD at 1324 CC: [id number] DICTATION DATE: 09/04/17 1142 NETWORK MGR: 09/04/17 1533 DIS IN 09/04/17 [place] [address]
[2017-09-03 12:06] LABS: BASOPHILS 0.2 % (0-2); EOSINOPHILS 2.3 % (0-7); HEMATOCRIT 43.1 % (36.0-48.0); HEMOGLOBIN 14.9 g/dL (12-16); IMMATURE GRANULOCYTES 0.2 % (0-5); LYMPHOCYTES 29.8 % (15-50); MCH 31.5 pg (26.0-34.0); MCHC 34.6 g/dL (31.0-37.0); MCV 91.1 fL (80.0-100.0); MEAN PLATELET VOLUME 11.6 fL (7.4-10.4); MONOCYTES 5.5 % (2-11); PLATELET COUNT 252 10x3/uL (130-400); RBC 4.73 10x6/uL (4.00-5.40); RDW 13.6 % (11.5-14.5); WBC 9.3 10x3/uL (4.8-10.8)
[2017-09-03 12:23] LABS: ALBUMIN 3.5 g/dL (3.4-5.0); ALKALINE PHOSPHATASE 169 U/L (46-116); ALT (SGPT) 46 U/L (10-68); CALC OSMOLALITY 281 mosm/kg (275-300); CALCIUM 9.8 mg/dL (8.5-10.1); CHLORIDE - SERUM 97 mmol/L (98-107); CREATININE - SERUM 1.1 mg/dL (0.6-1.3); POTASSIUM - SERUM 3.8 mmol/L (3.5-5.1); PROTEIN - SERUM 8.1 g/dL (6.4-8.2); SODIUM 133 mmol/L (136-145); UREA NITROGEN 13 mg/dL (7-18); eGFR NON AFRICAN AMERICAN 54 mL/min (90-120)
[2017-09-03 12:26] LABS: GLUCOSE 382 mg/dL (74-106)
[2017-09-03 12:38] LABS: CHOL - HDL RATIO 5.8 ratio (2.3-4.1); CHOLESTEROL, TOTAL 227 mg/dL (0-200); CREATINE KINASE 43 UL (21-215); HDL CHOLESTEROL 39 mg/dL (32-96); LDL CHOLESTEROL 136 mg/dL (0-100); LDL-HDL RATIO 3.5 ratio (1.5-3.5); TRIGLYCERIDE 260 mg/dL (30-200)
[2017-09-03 12:45] LABS: TROPONIN-I 0.565 ng/mL (0.000-0.060)
[2017-09-03 15:03] VITALS: BP 150/54
[2017-09-03 16:56] LABS: BASOPHILS 0.2 % (0-2); EOSINOPHILS 1.6 % (0-7); HEMATOCRIT 43.2 % (36.0-48.0); HEMOGLOBIN 14.7 g/dL (12-16); IMMATURE GRANULOCYTES 0.2 % (0-5); LYMPHOCYTES 32.5 % (15-50); MCH 31.1 pg (26.0-34.0); MCV 91.3 fL (80.0-100.0); MEAN PLATELET VOLUME 11.1 fL (7.4-10.4); MONOCYTES 5.5 % (2-11); PLATELET COUNT 239 10x3/uL (130-400); RBC 4.73 10x6/uL (4.00-5.40); RDW 13.6 % (11.5-14.5); WBC 10.6 10x3/uL (4.8-10.8)
[2017-09-03 17:13] LABS: ANION GAP 15.9 mmol/L (8-16); CALCIUM 9.7 mg/dL (8.5-10.1); CARBON DIOXIDE 24.3 mmol/L (21.0-32.0); CREATININE - SERUM 1.1 mg/dL (0.6-1.3); POTASSIUM - SERUM 4.2 mmol/L (3.5-5.1)
[2017-09-03 21:39] VITALS: BP 130/70
[2017-09-04 00:54] VITALS: BP 68/42
[2017-09-04 06:02] VITALS: BP 148/67
[2017-09-04 09:46] VITALS: BP 157/44
[2017-09-04 13:33] VITALS: Ht 157.5 cm; Wt 65.8 kg
[2017-09-04] MEDS ORDERED: BRILINTA90 MG PO (15:59)
[2017-09-04 16:32] VITALS: BP 131/47
== END 2017-09-04 16:45 | disposition home or self-care (01) ==
LOC: D.ER 11:37 → D.M2 13:23 → OBSVTIME 13:23 → D.M2 13:23
PROVIDERS: Emergency Medicine; Internal Medicine Cardiovascular Disease
DX: I25.110 Atherosclerotic heart disease of native coronary artery with unstable angina pectoris (principal); Z95.5 Presence of coronary angioplasty implant and graft; Z87.891 Personal history of nicotine dependence; Z91.14 Patient's other noncompliance with medication regimen; E11.51 Type 2 diabetes mellitus with diabetic peripheral angiopathy without gangrene; I10 Essential (primary) hypertension; Z86.73 Personal history of transient ischemic attack (TIA), and cerebral infarction without residual deficits

== ENCOUNTER 2017-10-18 22:44 | Emergency (ER) | payer MEDICAID ==
[2017-09-04 13:33] VITALS: BMI 26.5
[~2017-10-18 22:44] MED LIST changes: +BRILINTA90 MG PO
[2017-10-18 23:22] LABS: BASOPHILS 0.3 % (0-2); EOSINOPHILS 1.2 % (0-7); HEMOGLOBIN 13.3 g/dL (12-16); IMMATURE GRANULOCYTES 0.2 % (0-5); LYMPHOCYTES 39.9 % (15-50); MCH 31.1 pg (26.0-34.0); MCHC 34.1 g/dL (31.0-37.0); MCV 91.3 fL (80.0-100.0); MONOCYTES 8.2 % (2-11); NEUTROPHILS 50.2 % (40-80); PLATELET COUNT 271 10x3/uL (130-400); RBC 4.27 10x6/uL (4.00-5.40); RDW 13.7 % (11.5-14.5); WBC 8.7 10x3/uL (4.8-10.8)
[2017-10-18 23:32] LABS: ALBUMIN 3.4 g/dL (3.4-5.0); ANION GAP 12.2 mmol/L (8-16); BILIRUBIN - TOTAL 0.17 mg/dL (0.2-1.3); CALCIUM 9.2 mg/dL (8.5-10.1); CARBON DIOXIDE 26.8 mmol/L (21.0-32.0); PROTEIN - SERUM 8.1 g/dL (6.4-8.2)
== END 2017-10-19 00:15 | disposition home or self-care (01) ==
LOC: D.ER 22:44
PROVIDERS: Family Medicine
DX: G57.92 Unspecified mononeuropathy of left lower limb (principal); M79.1 Myalgia; I25.10 Atherosclerotic heart disease of native coronary artery without angina pectoris; E11.9 Type 2 diabetes mellitus without complications; I10 Essential (primary) hypertension

== ENCOUNTER 2017-11-03 11:41 | Emergency (ER) | payer MEDICAID ==
[2017-09-04 13:33] VITALS: BMI 26.5
[2017-11-03 14:47] LABS: ALBUMIN 3.5 g/dL (3.4-5.0); ANION GAP 13.3 mmol/L (8-16); BILIRUBIN - TOTAL 0.23 mg/dL (0.2-1.3); CALCIUM 9.3 mg/dL (8.5-10.1); CARBON DIOXIDE 26.9 mmol/L (21.0-32.0); CREATININE - SERUM 0.9 mg/dL (0.6-1.3); POTASSIUM - SERUM 4.2 mmol/L (3.5-5.1); PROTEIN - SERUM 7.9 g/dL (6.4-8.2)
[2017-11-03 14:59] LABS: APTT 27.3 SECONDS (22.8-39.4); INR 0.93 (0.85-1.17); PROTIME 12.1 SECONDS (11.6-15.0)
[2017-11-03 15:01] LABS: D-DIMER-QUANTITATIVE 0.55 ug/mLFEU (0.20-0.54)
[2017-11-03 15:03] LABS: BASOPHILS 0.3 % (0-2); EOSINOPHILS 1.6 % (0-7); HEMATOCRIT 40.7 % (36.0-48.0); HEMOGLOBIN 13.4 g/dL (12-16); IMMATURE GRANULOCYTES 0.2 % (0-5); LYMPHOCYTES 37.4 % (15-50); MCH 30.5 pg (26.0-34.0); MCHC 32.9 g/dL (31.0-37.0); MCV 92.7 fL (80.0-100.0); MONOCYTES 6.5 % (2-11); PLATELET COUNT 252 10x3/uL (130-400); RBC 4.39 10x6/uL (4.00-5.40); RDW 14.1 % (11.5-14.5)
== END 2017-11-03 18:35 | disposition home or self-care (01) ==
LOC: D.ER 11:41
PROVIDERS: Family Medicine
DX: I77.1 Stricture of artery (principal); E11.9 Type 2 diabetes mellitus without complications; I10 Essential (primary) hypertension; Z86.73 Personal history of transient ischemic attack (TIA), and cerebral infarction without residual deficits; F17.200 Nicotine dependence, unspecified, uncomplicated

== ENCOUNTER 2017-11-16 08:30 | Outpatient (CLI) | payer MEDICAID ==
[~2017-11-16] VITALS: Ht 157.5 cm; Wt 69.1 kg
--- NOTE | ~2017-11-16 | OP ---
PATIENT NAME: TJ CRAIG MEDICAL RECORD: [id number] :60 LOCATION:D.CAT ADMISSION DATE: SURGEON: TRAE FORD MD DATE OF OPERATION: 11/16/2017 PROCEDURES: 1. Stent placement of SFA, left. 2. SKEIN INSPECTOR SFA, left. 3. Unilateral extremity angiography. INDICATION: Claudication and peripheral vascular disease. PROCEDURE IN DETAIL: After informed consent was obtained and after detailed explanation of risks, benefits as well as alternative therapies, the patient elected to proceed with angiogram and angioplasty. The right femoral area was prepped and draped in normal sterile fashion. The right femoral artery was cannulated via modified Seldinger technique with placement of a 6-Polish [id number] sheath. All catheters exchanged through this sheath. FINDINGS: The left SFA has multiple areas of 90% stenosis. Then, there is an area of chronic total occlusion in the mid vessel. This was traversed with a glide cath, Glidewire combination. Ballooning was undertaken with a 5.0 balloon. This yielded suboptimal result with severe intimal dissection. Stenting was undertaken with a 6 x 150 and 6 x 60 SMART stent. Result was 0% residual stenosis. OVERALL IMPRESSION: Successful percutaneous transluminal angioplasty stent of the left superficial femoral artery going from 100% initial stenosis to 0% residual stenosis. TRANSINT:[id number] Voice Confirmation ID: [id number] DOCUMENT ID: [id number] TRAE FORD MD at 1056 CC: [id number] DICTATION DATE: 11/16/17 1334 GOVERNMENT CONTRACTS MANAGER: 11/16/17 1345 DEP CLI 11/16/17 [place] [id number]
--- NOTE | ~2017-11-16 | HP ---
PATIENT: TJ CRAIG MEDICAL RECORD: [id number] ACCOUNT: [id number] LOCATION:[facility] : 60 ADMISSION DATE: 11/16/17 HISTORY AND PHYSICAL EXAMINATION DIAGNOSES: 1. Left leg claudication. 2. Peripheral vascular disease. 3. Coronary artery disease. 4. Hypertension. 5. Hyperlipidemia. 6. Insulin-dependent diabetes. HISTORY OF PRESENT ILLNESS: Ms. Craig presents with increasing left leg claudication. She has a known critical disease of the left leg. She recently underwent COMPUTER ENGINEER and stent of the right leg. PHYSICAL EXAMINATION: GENERAL APPEARANCE: Well-nourished, well-developed, appears stated age. Level of distress, comfortable. PSYCHIATRIC: Mental status, alert, normal affect. Orientation, oriented to time, place and person. EYES: Lids and conjunctiva, noninjected. No discharge, no pallor. ENT: Lips, teeth, gums, normal dentition. Oropharynx, no cyanosis, no pallor. NECK: Carotid arteries, bilateral normal upstroke, no bruits, no thrills. JUGULAR VEINS: No jugular venous pressure or distention. CERVICAL LYMPH NODES: Nontender, nonenlarged. THYROID: Not enlarged. Nontender. No nodules. LUNGS: Respiratory effort, unlabored. CHEST: Normal curvature. No thoracic deformity. No chest wall tenderness. Percussion, resonant. Auscultation, clear. No wheezes, no rales, no rhonchi. CARDIOVASCULAR: Precordial exam, nondisplaced. No heaves or pericardial thrills. Rate and rhythm, regular. Heart sounds, normal S1, normal S2. No S3, no gallop, no rub. Systolic murmur, not heard. Diastolic murmur, not heard. EXTREMITIES: No cyanosis, no edema. Peripheral pulses, full and equal in all extremities, except as noted. No bruits appreciated. ABDOMEN: Soft, nondistended. Normal aorta. No bruit. Nontender. No masses. Liver, nontender, no hepatomegaly. Spleen, nontender, no splenomegaly. MUSCULOSKELETAL: No joint tenderness. No joint swelling. No erythema. NEUROLOGICAL: Normal gait, normal strength, normal tone. SKIN: Warm and dry. REVIEW OF SYSTEMS: The patient reports easy bruising but reports no swollen glands. The patient reports no fever, no night sweats, no significant weight gain, no significant weight loss. No significant exercise tolerance. The patient reports no dry eyes, no irritation, no vision change. Patient reports no difficulty hearing and no ear pain. Patient reports no frequent nose bleeds or nose and sinus problems. Patient reports on arm pain on exertion. No shortness of breath while lying down. No history of heart murmur. Patient reports no cough, no wheezing or coughing up blood. Patient reports no abdominal pain, no vomiting. Normal appetite. No diarrhea and not vomiting blood. No nausea and no constipation. Patient reports no incontinence. No difficulty urinating. No hematuria. No increased frequency. Patient reports no muscle aches. No weakness, no arthralgias, no back pain. No swelling of the extremities. Patient reports no abnormal mole, no jaundice, no rashes. Reports HISTORY AND PHYSICAL [id number] TJ CRAIG no loss of consciousness. No weakness and no numbness. No seizures, dizziness, or headaches. The patient reports no depression, no sleep disturbance, feeling safe in a relationship and no alcohol abuse. Patient reports on fatigue. Reports no runny nose or sinus pressure. No itching, no hives, and no frequent sneezing. OVERALL IMPRESSION: Claudication of the left leg with critical disease of the left leg. We will proceed with transcatheter revascularization of the left leg. TRANSINT:[id number] Voice Confirmation ID: [id number] DOCUMENT ID: [id number] TRAE FORD MD at 1056 CC: [id number] DICTATION DATE: 11/16/[address] CLERK: 11/16/17 1254 DEP CLI 11/16/17 [place] [id number] [place] [id number]
--- NOTE | ~2017-11-16 | HEMODYNAMI ---
PATIENT:TJ CRAIG MEDICAL RECORD: [id number] : 60 LOCATION:[facility] ADMISSION DATE: 11/16/17 Generatedon:11/16/201713:36 Patient name: TJ CRAIG Patient #: [id number] : 1960 Date of study: 11/16/2017 Page: Of Hemodynamic Procedure Report Patient Data Patient Demographics Procedure consent was obtained First Name: TJ Gender: Female Last Name: KIARA : 1960 [facility] Initial: ALTA Age: 57 year(s) Patient #: [id number] Race: Other SSN: [id number] Additional ID: [id number] Contact details Address: [address] [place] [address] [address] State: [place] City: [place] Zip code: [address] Past Medical History Allergies Allergen Reaction Date Comments Reported Other allergy 12/21/2016 steroids Other allergy 02/16/2017 Cortico-Steroids Other allergy 08/09/2017 Prednisone, Steroids Other allergy 08/30/2017 Prednisone Other allergy 09/04/2017 PREDNISONE, STEROIDS Other allergy 11/16/2017 CORTICOSTEROIDS Admission Admission Data Admission Date: 11/16/2017 Admission Time: 8:30 Lab Results Lab Result Date: 11/16/2017 Lab Result Time: 0:00 Biochemistry Name Units Result Min Max BUN mg/dl 18 --(---*)-- 7 18 Creatinine mg/dl 0.8 --(-*--)-- 0.6 1.3 CBC Name Units Result Min Max Hemoglobin g/dl 13.9 --(*---)-- 13.5 17.5 Procedure Procedure Types Cath Procedure Peripheral vascular Intervention Procedure Description Procedure Date Procedure Date: 11/16/2017 Procedure Start Time: 13:04 Procedure End Time: 13:34 Procedure Staff Name Function Pelon Sy MD Performing Physician Everardo Fraga RN Nurse Xi Rey RT Monitor Mazin Villalobos RT Scrub Procedure Data Cath Procedure Fluoroscopy Diagnostic fluoroscopy Total fluoroscopy Time: 6.7 time: 6.7 min min Diagnostic fluoroscopy Total fluoroscopy dose: 104 dose: 104 mGy mGy Contrast Material Contrast Material Type Amount (ml) Isovue 300 104 Isovue 300 62 Entry Location Entry Primary Successful Side Size Upsize Upsize Entry Closure Succes sful Closure Location (Fr) 1 (Fr) 2 (Fr) Remarks Device Remarks Femoral Right 6 Fr 6 Fr Exoseal artery Short Long Estimated blood loss: 10 ml Diagnostic catheters Device Type Used For End Catheter Placement DIAGNOSTIC IMT 5Fr Procedure Catheter ([id number]) Procedure Complications No complications Procedure Medications Medication Administration Route Dosage Versed I.V. Fentanyl I.V. 100 mcg 0.9% NaCl I.V. 100 ml/hr Oxygen NC 2 l/min Heparin Flush Bag added to field 2 bags (1000units/500ml NS) Lidocaine 2% added to field 20 Versed I.V. 1 mg Fentanyl I.V. 100 mcg Heparin Bolus I.V. 5000 units Benadryl I.V. 50 mg Plavix P.O. 300 mg Hemodynamics Rest HGB: 13.9 (g/dl) Heart Rate: 75 (bpm) Snapshots Pre Cath Intra NCS Post Cath Vital Signs Time Heart Resp SPO2 etCO2 NIBP (mmHg) Rhythm Pain Sedation Rate (ipm) (%) (mmHg) Status Level (bpm) 12:50:12 76 15 98 38.7 152/74(109) NSR 0 (11) 10(A) , No pain 13:04:14 75 19 98 0 136/89(125) NSR 0 (11) 10(A) , No pain 13:10:26 79 4 95 39.5 181/92(125) NSR 0 (11) 9(A) , No pain 13:15:56 88 3 96 38 158/111(150) NSR 0 (11) 9(A) , No pain 13:20:41 79 5 96 23.1 167/117(154) NSR 0 (11) 9(A) , No pain 13:26:04 84 5 97 45.4 145/76(134) NSR 0 (11) 9(A) , No pain 13:31:30 77 7 41.7 160/70(112) NSR 0 (11) 9(A) , No pain Medications Time Medication Route Dose Verified Delivered Reason Notes Effectiveness by by 13:01:57 Benadryl I.V. 50 mg Everardo Everardo Per physician Flakito Fraga RN, RN 13:02:52 Versed I.V. Everardo Everardo for sedation Flakito Fraga RN, RN 13:03:06 Fentanyl I.V. 100 Everardo Everardo for sedation yesica Fraga RN, RN 13:03:30 0.9% NaCl I.V. 100 Everardo Everardo Per physician ml/hr Flakito Fraga RN, RN 13:03:40 Oxygen NC 2 Everardo Everardo Per physician l/min Flakito Fraga RN, RN 13:04:04 Heparin Flush added 2 Everardo Everardo used for Bag to bags Flakito Fraga procedure (1000units/500ml RN RN NS) 13:04:16 Lidocaine 2% added 20ml Everardo Everardo for local to vial Flakito Fraga anesthetic field REID RN 13:07:14 Versed I.V. 1 mg Everardo Everardo for sedation Flakito Fraga RN, RN 13:07:20 Fentanyl I.V. 100 Everardo Everardo for sedation mcg Flakito Fraga RN, RN 13:07:31 Heparin Bolus I.V. 5000 Everardo Everardo for units Flakito Fraga anticoagulation RN RN 13:33:31 Plavix P.O. 300 Everardo Everardo for mg Flakito Fraga antiplatelet RN RN therapy Procedure Log Time Note 12:15:44 Everardo Fraga RN sent for patient. Start room use. 12:31:52 Time tracking: Regular hours 12:31:59 Plan of Care:Hemodynamics will remain stable., Cardiac rhythm will remain stable., Comfort level will be maintained., Respiratory function will remain adequate., Patient/ family verbilizes understanding of procedure., Procedure tolerated without complication., Recovers from procedure without complications.. 12:37:51 Patient received from Pre/Post Procedure Room to CCL 1 Alert and oriented. Tansferred to table in Supine position. 12:37:52 Warm blankets applied, and kingston hugger turned on for patient comfort. 12:37:53 Correct patient and procedure confirmed by team. 12:37:54 Signed procedure consent form obtained from patient. 12:37:55 ECG and BP/O2 sat monitors applied to patient. 12:49:14 Vital chart was started 12:50:24 Rhythm: sinus rhythm 12:50:25 Baseline sample Acquired. 12:50:50 Full Disclosure recording started 12:51:45 Pre-procedure instructions explained to patient. 12:51:45 Pre-op teaching completed and patient verbalized understanding. 12:51:47 Family in patients room. 12:51:49 Patient NPO since Midnight. 12:52:06 Patient allergic to Other allergyCORTICOSTEROIDS 12:52:08 Is the patient allergic to Iodine/contrast media? No. 12:52:10 Is patient on blood thinner?Yes 12:52:22 LAST PLAVIX MONDAY 12:52:24 Patient diabetic? Yes. 12:52:26 If diabetic: On Metformin? Yes 12:52:31 If on Metformin: Last Dose? 11/14/2017 12:52:35 Patient not . Patient is over age 55. 12:52:38 Previous problem with sedation/anesthesia? No ? 12:52:39 Snore? No 12:52:41 Sleep apnea? No 12:52:42 Deviated septum? No 12:52:43 Opens mouth fully? Yes 12:52:44 Sticks out tongue? Yes 12:52:46 Airway obstruction? No ? 12:52:47 Dentures? No ? 12:52:51 Pre procedure: right dorsailis pedis pulse 1+ Palpable, but thready & weak; easily obliterated 12:52:55 Patient pain scale 0/10 ?. 12:53:02 IV patent on arrival in right antecubital with 0.9% NaCl at O. 12:53:34 Lab Result : Creatinine 0.8 mg/dl 12:53:34 Lab Result : BUN 18 mg/dl 12:53:34 Lab Result : Hemoglobin 13.9 g/dl 12:53:37 Lab results completed and on chart. 12:53:40 Right groin area was prepped with chlora-prep and draped in sterile fashion 12:53:41 Alarms reviewed by R. N. 12:53:41 Sharps counted by scrub and verified by R.N. 12:54:09 ACIST Syringe (99343) opened to sterile field. 12:54:09 Bag Decanter (2002) opened to sterile field. 12:54:10 Medline Cath Pack ([id number]) opened to sterile field. 12:54:15 Use device set CATH PACK 12:54:16 ACIST Syringe (89954) opened to sterile field. 12:54:17 ACIST Hand Control (02581) opened to sterile field. 12:54:17 ACIST Manifold (34751) opened to sterile field. 12:54:18 Medline Cath Pack ([id number]) opened to sterile field. 12:54:19 Bag Decanter (2002S) opened to sterile field. 12:54:19 DIAGNOSTIC WIRE .035 260cm J wire (747658) opened to sterile field. 12:56:18 SHEATH 6Fr Prelude ([id number]) opened to sterile field. 12:56:37 GLIDE WIRE Super Stiff Angled 260cm (XE8312) opened to sterile field. 12:57:46 INFLATOR Merit BasixCompak (YR4392) opened to sterile field. 13:00:01 H&P Date Dictated: 11/16/2017 Within 30 days and on chart., H&P Addendum completed by physician on day of procedure. (MUST COMPLETE FOR ALL OUTPATIENTS). 13:00:03 --------ALL STOP TIME OUT------ 13:00:04 Final Timeout: patient, procedure, and site verified with staff and physician. All members of the team are in agreement. 13:00:06 Right groin site verified by team. 13:00:09 Physical assessment completed. ASA score P 2 - A patient with mild systemic disease as per Pelon Sy MD. 13:00:12 Sedation plan: IV Moderate Sedation Medication:Versed, Fentanyl 13:01:57 Benadryl 50 mg I.V. was administered by Everardo Fraga RN; Per physician; 13:02:52 Versed I.V. was administered by Everardo Fraga RN; for sedation; 13:03:06 Fentanyl 100 mcg I.V. was administered by Everardo Fraga RN; for sedation; 13:03:30 0.9% NaCl 100 ml/hr I.V. was administered by Everardo Fraga RN; Per physician; 13:03:40 Oxygen 2 l/min NC was administered by Everardo Fraga RN; Per physician; 13:03:58 Zero performed for pressure channel P1 13:04:04 Heparin Flush Bag (1000units/500ml NS) 2 bags added to field was administered by Everardo Fraga RN; used for procedure; 13:04:11 Procedure started. 13:04:15 Local anesthetic to right femoral artery with Lidocaine 2% by Pelon Sy MD.INITIAL ACCESS ONLY 13:04:16 Lidocaine 2% 20ml vial added to field was administered by Everardo Fraga RN; for local anesthetic; 13:04:18 CHOICE PT Extra Support J 300cm guide wire ([id number]) opened to sterile field. 13:05:39 A 6 Fr Short sheath was inserted into the Right Femoral artery 13:05:55 SHEATH 6FR Destination (RSR01) opened to sterile field. 13:06:36 A DIAGNOSTIC IMT 5Fr Catheter ([id number]) was advanced over the wire and used for Procedure. 13:07:12 IMT USED TO ADVANCE SHEATH ACROSS HORN 13:07:14 Versed 1 mg I.V. was administered by Everardo Fraga RN; for sedation; 13:07:20 Fentanyl 100 mcg I.V. was administered by Everardo Fraga RN; for sedation; 13:07:23 Sheath upsized to a 6 Fr Long. 13:07:31 Heparin Bolus 5000 units I.V. was administered by Everardo Fraga RN; for anticoagulation; 13:07:36 Catheter exchanged over wire. 13:08:12 Left leg runoff performed. 13:09:48 GLIDE CATHETER 5FR STRAIGHT 100cm (CG506) opened to sterile field. 13:10:11 CHOICE PT 300 WIRE ADVANCED 13:10:54 WIRE ACROSS LESION 13:11:09 Catheter removed. 13:12:51 Inflation number: 1 A SABER 5.0 x 2 x 150 balloon ([id number]) was prepped and advanced across the Mid Superficial Femoral, Left, then inflated to 11 LEA for 0:10 (min:sec). 13:13:13 Balloon removed over the wire. 13:15:37 SMART 6 X 150 X 120 stent ([id number]) was deployed across Mid Superficial Femoral, Left . 13:15:56 Stent catheter was removed intact over wire. 13:18:10 SMART 6 X 60 X 120 stent ([id number]) was deployed across Proximal Superficial Femoral, Left . 13:18:14 Stent catheter was removed intact over wire. 13:19:30 Inflation number: 2 The SABER 5.0 x 2 x 150 balloon ([id number]) was reinflated across the Mid Superficial Femoral, Left, to 5 LEA for 0:10 (min:sec). 13:19:51 Inflation number: 1 The SABER 5.0 x 2 x 150 balloon ([id number]) was reinflated across the Proximal Superficial Femoral, Left, to 9 LEA for 0:10 (min:sec). 13:20:09 Balloon removed over the wire. 13:21:04 Wire removed. 13:21:35 WIRE ADVANCED TO EXCHANGE SHEATH TO SHORT 13:23:03 EXOSEAL 6Fr (EX600) opened to sterile field. 13:23:11 Sheath removed intact; hemostasis achieved with Exoseal to the Right Femoral artery. 13:23:46 Procedure ended.(Physican Out) 13:25:21 Fluoroscopy time 06.70 minutes. 13:25:24 Fluoroscopy dose: 104 mGy 13:25:24 Flurop Dose total: 104 13:25:30 Contrast amount:Isovue 300 104ml. 13:25:42 Contrast amount:Isovue 300 62ml. 13:25:44 Sharps counted by scrub and verified by R.N. 13:25:49 Post-op/insertion site Right Femoral artery dressed using a 4 x 4 and Tegaderm. 13:26:05 Post-procedure physical assessment completed. ASA score P 2 - A patient with mild systemic disease as per Pelon Sy MD. 13:26:08 Post procedure rhythm: unchanged. 13:26:10 Estimated blood loss: 10 ml 13:26:12 Post procedure instruction explained to patient.Patient verbalizes understanding. 13:26:13 Patient needs reinforcement of post procedure teaching. 13:27:24 PERCUTANEOUS ENTRY 19GA needle opened to sterile field. 13:31:01 Procedure type changed to Cath procedure, Peripheral vascular Intervention 13:33:31 Plavix 300 mg P.O. was administered by Everardo Fraga RN; for antiplatelet therapy; 13:33:56 Procedure and supply charges have been captured, reviewed, submitted and are correct. 13:33:58 Procedure Complication : No complications 13:34:00 Vital chart was stopped 13:34:01 See physician's report for complete and final results. 13:34:03 Report given to Pre/Post Procedure Room. 13:34:09 Patient transfered to Pre/Post Procedure Room with Bed. 13:34:11 Procedure ended. 13:34:11 Full Disclosure recording stopped 13:34:16 End room use (Document Last) Intervention Summary Intervention Notes Time ActionType Lesion and Equipment Action# Pressure Duration Attributes Used 13:12:51 Inflate Mid SABER 5.0 x 1 11 00:10 balloon Superficial 2 x 150 Femoral, balloon Left ([id number]) 13:15:37 Deploy self Mid SMART 6 X 1 expanding Superficial 150 X 120 stent Femoral, stent Left ([id number]) 13:18:10 Deploy self Proximal SMART 6 X 1 expanding Superficial 60 X 120 stent Femoral, stent Left ([id number]) 13:19:30 Reinflate Mid SABER 5.0 x 2 5 00:10 balloon Superficial 2 x 150 Femoral, balloon Left ([id number]) 13:19:51 Reinflate Proximal SABER 5.0 x 1 9 00:10 balloon Superficial 2 x 150 Femoral, balloon Left ([id number]) Device Usage Item Name Manufacture Quantity Catalog Number Hospital Part Current Mini mal Lot# / Charge Number Stock Stock Serial# Code ACIST Acist 2 86334 018482 553611 [id number] 20 Syringe Medical (94623) Systems Inc Bag Decanter Microtek 2 2002S 421478 46343 646799 5 (2001S) Medical Inc. Medline Cath Cardinal 2 [id number] 569649 18897 223761 5 Pack Health ([id number]) ACIST Hand Acist 1 60499 146312 344921 087814 5 Control Medical (91977) Systems Inc ACIST Acist 1 78769 198765 478745 592274 5 Manifold Medical (79136) Systems Inc DIAGNOSTIC St Remy 1 897474 057982 549633 523790 30 WIRE .035 260cm J wire (940727) SHEATH 6Fr Merit 1 [id number] 778316 259309 400856 5 Prelude Medical ([id number]) GLIDE WIRE Terumo 1 MM3520 265405 725654 662638 5 Super Stiff Angled 260cm (FB3016) INFLATOR Merit 1 GO8601 885836 120003 247416 15 Merit Medical BasixCompak (QC8902) CHOICE PT [place] 1 [id number] 515463 339339 474137 5 Extra Scientific Support J 300cm guide wire ([id number]) SHEATH 6FR Terumo 1 RSR01 083621 37702 305784 5 Destination (RSR01) DIAGNOSTIC [place] 1 [id number] 911263 783740 64684 5 IMT 5Fr Scientific Catheter ([id number]) GLIDE Terumo 1 CG506 502183 24797 011005 4 CATHETER 5FR STRAIGHT 100cm (CG506) SABER 5.0 x Cardinal 1 [id number] 005731 696179 5 2 x 150 Health balloon ([id number]) SMART 6 X Cardinal 1 [id number] 873991 475231 0 150 X 120 Health stent ([id number]) SMART 6 X 60 Cardinal 1 [id number] 845056 298828 0 X 120 stent Health ([id number]) EXOSEAL 6Fr Cardinal 1 EX600 151909 759659 342298 10 (EX600) Health PERCUTANEOUS [facility] 1 D98754 217409 046642 5 ENTRY 19GA needle Signature Audit [place] Stage Time Signature Unsigned Intra-Procedure 11/16/2017 Xi Rey 1:36:24 PM RT(R) Signatures Monitor : Xi Rey Signature : RT Date : Time : [place] [address] [place] [address]
[2017-11-16 09:23] VITALS: BP 153/64; Ht 157.5 cm; Wt 69.1 kg
[2017-11-16 09:41] LABS: BASOPHILS 0.3 % (0-2); EOSINOPHILS 1.4 % (0-7); HEMATOCRIT 40.2 % (36.0-48.0); HEMOGLOBIN 13.9 g/dL (12-16); IMMATURE GRANULOCYTES 0.1 % (0-5); LYMPHOCYTES 27.4 % (15-50); MCH 31.6 pg (26.0-34.0); MCHC 34.6 g/dL (31.0-37.0); MCV 91.4 fL (80.0-100.0); MONOCYTES 7.6 % (2-11); NEUTROPHILS 63.2 % (40-80); PLATELET COUNT 256 10x3/uL (130-400); RDW 13.8 % (11.5-14.5); WBC 8.7 10x3/uL (4.8-10.8)
[2017-11-16 09:45] LABS: CALC OSMOLALITY 284 mosm/kg (275-300); CALCIUM 8.4 mg/dL (8.5-10.1); CARBON DIOXIDE 23.8 mmol/L (21.0-32.0); CHLORIDE - SERUM 106 mmol/L (98-107); CREATININE - SERUM 0.8 mg/dL (0.6-1.3); POTASSIUM - SERUM 4.4 mmol/L (3.5-5.1); SODIUM 140 mmol/L (136-145); UREA NITROGEN 18 mg/dL (7-18); eGFR NON AFRICAN AMERICAN 78 mL/min (90-120)
[2017-11-16 09:46] LABS: GLUCOSE 163 mg/dL (74-106)
== END 2017-11-16 17:30 | disposition home or self-care (01) ==
LOC: D.CATH 08:30
PROVIDERS: Internal Medicine Interventional Cardiology
DX: I70.212 Atherosclerosis of native arteries of extremities with intermittent claudication, left leg (principal); I70.92 Chronic total occlusion of artery of the extremities; I25.10 Atherosclerotic heart disease of native coronary artery without angina pectoris; I10 Essential (primary) hypertension; E78.5 Hyperlipidemia, unspecified; E11.9 Type 2 diabetes mellitus without complications; Z01.812 Encounter for preprocedural laboratory examination

== ENCOUNTER 2017-11-30 02:10 | Observation (INO) | payer MEDICAID ==
[~2017-11-30] VITALS: Ht 157.5 cm; Wt 68.2 kg
--- NOTE | ~2017-11-30 | HEMODYNAMI ---
PATIENT:TJ CRAIG MEDICAL RECORD: [id number] : 60 LOCATION:[facility] D.[address] [facility] [id number] ADMISSION DATE: 11/30/17 Generatedon:12/01/201713:58 Patient name: TJ CRAIG Patient #: [id number] : 1960 Date of study: 12/01/2017 Page: Of Hemodynamic Procedure Report Patient Data Patient Demographics Procedure consent was obtained First Name: TJ Gender: Female Last Name: KIARA : 1960 [facility] Initial: ALTA Age: 57 year(s) Patient #: [id number] Race: Other SSN: [id number] Additional ID: [id number] Contact details Address: [address] [place] [address] [address] State: [place] City: [place] Zip code: [address] Past Medical History Allergies Allergen Reaction Date Comments Reported Other allergy 12/21/2016 steroids Other allergy 02/16/2017 Cortico-Steroids Other allergy 08/09/2017 Prednisone, Steroids Other allergy 08/30/2017 Prednisone Other allergy 09/04/2017 PREDNISONE, STEROIDS Other allergy 11/16/2017 CORTICOSTEROIDS Other allergy 12/01/2017 STEROIDS Admission Admission Data Admission Date: 11/30/2017 Admission Time: 6:14 Room #: D.2118 Lab Results Lab Result Date: 12/01/2017 Lab Result Time: 0:00 Biochemistry Name Units Result Min Max BUN mg/dl 16 --(---*)-- 7 18 Creatinine mg/dl 1.1 --(--*-)-- 0.6 1.3 CBC Name Units Result Min Max Hemoglobin g/dl 14.1 --(*---)-- 13.5 17.5 Procedure Procedure Types Cath Procedure Diagnostic Procedure Sedation Charges Moderate Sedation up to 30 minutes Peripheral Cath Diagnostic Procedure Cath Peripheral Nhfit-Lxrqtmp-Swz-Off Peripheral vascular Intervention Stent Stent-Fem/Popw/plasty Procedure Description Procedure Date Procedure Date: 12/01/2017 Procedure Start Time: 13:27 Procedure End Time: 13:54 Procedure Staff Name Function Pelon Sy MD Performing Physician Xi Rey RT Monitor Scooter Wilson RT Scrub Whitney Alcala RN Nurse Procedure Data Cath Procedure Fluoroscopy Diagnostic fluoroscopy Total fluoroscopy Time: 4.8 time: 4.8 min min Diagnostic fluoroscopy Total fluoroscopy dose: 169 dose: 169 mGy mGy Contrast Material Contrast Material Type Amount (ml) Isovue 300 101 Entry Location Entry Primary Successful Side Size Upsize Upsize Entry Closure Succes sful Closure Location (Fr) 1 (Fr) 2 (Fr) Remarks Device Remarks Femoral Right 6 Fr 6 Fr Exoseal artery Short Long Estimated blood loss: 10 ml Diagnostic catheters Device Type Used For End Catheter Placement DIAGNOSTIC UF 5Fr Procedure catheter ([id number]) Procedure Complications No complications Procedure Medications Medication Administration Route Dosage 0.9% NaCl I.V. 100 ml/hr Oxygen NC 2 l/min Heparin Flush Bag added to field 2 bags (1000units/500ml NS) Lidocaine 2% added to field 20 Versed I.V. 1 mg Fentanyl I.V. 50 mcg Versed I.V. 1 mg Fentanyl I.V. 50 mcg Versed I.V. 1 mg Heparin Bolus 5000 units Integrilin (Bolus I.V. 6.2 ml 2mg/ml) Hemodynamics Rest HGB: 14.1 (g/dl) Heart Rate: 66 (bpm) Snapshots Pre Cath Intra NCS Post Cath Vital Signs Time Heart Resp SPO2 etCO2 NIBP (mmHg) Rhythm Pain Sedation Rate (ipm) (%) (mmHg) Status Level (bpm) 13:06:44 64 20 100 38.6 199/80(138) NSR 0 (11) 10(A) , No pain 13:11:35 65 14 100 23 167/67(122) NSR 0 (11) 10(A) , No pain 13:16:22 67 16 100 23.7 167/74(120) NSR 0 (11) 10(A) , No pain 13:21:09 68 15 100 40.1 154/64(110) NSR 0 (11) 9(A) , No pain 13:25:55 70 18 100 40.9 130/75(115) NSR 0 (11) 9(A) , No pain 13:32:06 74 18 99 44.5 155/72(114) NSR 0 (11) 9(A) , No pain 13:36:55 74 18 100 46.8 141/70(118) NSR 0 (11) 9(A) , No pain 13:42:25 74 20 100 45.3 151/59(108) NSR 0 (11) 9(A) , No pain 13:47:53 69 19 100 40.9 158/57(103) NSR 0 (11) 9(A) , No pain 13:53:16 72 17 100 38.6 153/69(103) NSR 0 (11) 9(A) , No pain Medications Time Medication Route Dose Verified Delivered Reason Notes Effectiveness by by 13:04:29 0.9% NaCl I.V. 100 Whitney Whitney used for ml/hr Fredrick Fredrick lead based paint technician RN 13:04:40 Oxygen NC 2 Whitney Whitney used for l/min Fredrick Fredrick lead based paint technician RN 13:04:54 Heparin Flush added 2 Whitney Whitney used for Bag to bags Fredrick Fredrick procedure (1000units/500ml field RN RN NS) 13:05:03 Lidocaine 2% added 20ml Whitney Whitney for local to vial Fredrick Fredrick anesthetic field RN RN 13:18:38 Versed I.V. 1 mg Whitney Whitney for sedation Fredrick Fredrick RN RN 13:18:46 Fentanyl I.V. 50 Whitney Whitney for sedation mcg Fredrick Fredrick RN RN 13:22:22 Versed I.V. 1 mg Whitney Whitney for sedation Fredrick Fredrick RN RN 13:22:26 Fentanyl I.V. 50 Whitney Whitney for sedation mcg Fredrick Fredrick RN RN 13:29:53 Versed I.V. 1 mg Hwitney Whitney for sedation Fredrick Fredrick RN RN 13:33:15 Heparin Bolus 5000 Whitney Whitney for verif ied units Fredrick Fredrick anticoagulation with RN RN Yossi 13:41:20 Integrilin I.V. 6.2ml Whitney Whitney for 3.8ml (Bolus 2mg/ml) Fredrick Fredrick anticoagulation wasted RN community health advocate Log Time Note 12:43:14 Whitney Fredrick RN sent for patient. Start room use. 12:43:15 Time tracking: Regular hours 12:43:18 Plan of Care:Hemodynamics will remain stable., Cardiac rhythm will remain stable., Comfort level will be maintained., Respiratory function will remain adequate., Patient/ family verbilizes understanding of procedure., Procedure tolerated without complication., Recovers from procedure without complications.. 12:43:21 Signed procedure consent form obtained from patient. 12:43:34 H&P Date Dictated: 11/30/2017 Within 30 days and on chart.. 13:03:50 Patient received from Med II to CCL 1 Alert and oriented. Tansferred to table in Supine position. 13:03:52 Warm blankets applied, and kingston hugger turned on for patient comfort. 13:03:52 Correct patient and procedure confirmed by team. 13:03:53 ECG and BP/O2 sat monitors applied to patient. 13:03:54 Vital chart was started 13:03:56 Baseline sample Acquired. 13:03:59 Rhythm: sinus rhythm 13:04:29 0.9% NaCl 100 ml/hr I.V. was administered by Whitney Alcala RN; used for procedure; 13:04:40 Oxygen 2 l/min NC was administered by Whitney Alcala RN; used for procedure; 13:04:54 Heparin Flush Bag (1000units/500ml NS) 2 bags added to field was administered by Whitney Alcala RN; used for procedure; 13:05:03 Lidocaine 2% 20ml vial added to field was administered by Whitney Alcala RN; for local anesthetic; 13:09:50 Full Disclosure recording started 13:09:51 Pre-procedure instructions explained to patient. 13:09:52 Pre-op teaching completed and patient verbalized understanding. 13:09:53 Family in patients room. 13:09:56 Patient NPO since Midnight. 13:10:05 Patient allergic to Other allergySTEROIDS 13:10:08 Is the patient allergic to Iodine/contrast media? No. 13:10:08 Is patient on blood thinner?Yes 13:10:11 ACC The patient was administered the following blood thiners within the last 24 hours: ACCPlavix 13:10:12 Patient diabetic? Yes. 13:10:13 If diabetic: On Metformin? Yes 13:10:15 If on Metformin: Last Dose? 11/29/2017 13:10:19 Patient not . Patient is over age 55. 13:10:22 Previous problem with sedation/anesthesia? No ? 13:10:23 Snore? No 13:10:24 Sleep apnea? No 13:10:25 Deviated septum? No 13:10:31 Opens mouth fully? Yes 13:10:31 Sticks out tongue? Yes 13:10:33 Airway obstruction? No ? 13:10:35 Dentures? No ? 13:10:42 Pre procedure: right dorsailis pedis pulse 1+ Palpable, but thready & weak; easily obliterated 13:10:45 Pre procedure: left dorsailis pedis pulse 1+ Palpable, but thready & weak; easily obliterated 13:10:50 Patient pain scale 0/10 ?. 13:10:55 IV patent on arrival in left hand with 0.9% NaCl at [facility]. 13:11:29 Lab Result : BUN 16 mg/dl 13:11:29 Lab Result : Hemoglobin 14.1 g/dl 13:11:29 Lab Result : Creatinine 1.1 mg/dl 13:11:33 Lab results completed and on chart. 13:11:36 Bilateral groins area was prepped with chlora-prep and draped in sterile fashion 13:11:37 Alarms reviewed by R. N. 13:11:37 Sharps counted by scrub and verified by R.N. 13:11:54 Use device set CATH PACK 13:11:55 ACIST Syringe (59493) opened to sterile field. 13:11:56 ACIST Hand Control (75870) opened to sterile field. 13:11:56 ACIST Manifold (26042) opened to sterile field. 13:11:56 Medline Cath Pack ([id number]) opened to sterile field. 13:11:57 Bag Decanter () opened to sterile field. 13:11:57 DIAGNOSTIC WIRE .035 260cm J wire ([id number]) opened to sterile field. 13:14:07 SHEATH 6FR Weldon ([id number]) opened to sterile field. 13:14:09 INFLATOR Merit BasixCompak (DU3298) opened to sterile field. 13:14:10 PERCUTANEOUS ENTRY 19GA needle opened to sterile field. 13:14:10 GLIDE WIRE Super Stiff Angled 260cm ([id number]) opened to sterile field. 13:16:00 --------ALL STOP TIME OUT------ 13:16:01 Final Timeout: patient, procedure, and site verified with staff and physician. All members of the team are in agreement. 13:16:03 Bilateral groins site verified by team. 13:16:06 Physical assessment completed. ASA score P 2 - A patient with mild systemic disease as per Pelon Sy MD. 13:16:09 Sedation plan: IV Moderate Sedation Medication:Versed, Fentanyl 13:18:38 Versed 1 mg I.V. was administered by Whitney Alcala RN; for sedation; 13:18:46 Fentanyl 50 mcg I.V. was administered by Whitney Alcala RN; for sedation; 13:22:22 Versed 1 mg I.V. was administered by Whitney Alcala RN; for sedation; 13:22:26 Fentanyl 50 mcg I.V. was administered by Whitney Alcala RN; for sedation; 13:27:13 Procedure started. 13:27:22 Local anesthetic to right femoral artery with Lidocaine 2% by Pelon Sy MD.INITIAL ACCESS ONLY 13:28:11 A 6 Fr Short sheath was inserted into the Right Femoral artery 13:28:32 Zero performed for pressure channel P1 13:28:42 Zero performed for pressure channel P1 13:29:43 A DIAGNOSTIC UF 5Fr catheter ([id number]) was advanced over the wire and used for Procedure. 13:29:52 Abdominal angiogram w/ runoff was performed. 13:29:53 Versed 1 mg I.V. was administered by Whitney Alcala RN; for sedation; 13:30:11 Right leg runoff performed. 13:30:32 Left leg runoff performed. 13:31:19 STIFF GLIDE WIRE ADVANCED AROUND HORN 13:31:27 Catheter exchanged over wire. 13:32:10 Sheath upsized to a 6 Fr Long. 13:32:42 LONG SHEATH ADVANCED AROUND HORN 13:33:15 Heparin Bolus 5000 units was administered by Whitney Alcala RN; for anticoagulation; verified with Dr. Sy 13:33:22 CHOICE PT Extra Support J 300cm guide wire ([id number]) opened to sterile field. 13:40:02 CHOICE PT 300 wire advanced. 13:41:10 Inflate balloon Inflation number: 1 A POWERFLEX PRO 5.0 x 20 x 135cm balloon ([id number]) was prepped and advanced across the Distal Superficial Femoral, Left, then inflated to 6 LEA for 0:10 (min:sec). 13:41:20 Integrilin (Bolus 2mg/ml) 6.2ml I.V. was administered by Whitney Alcala RN; for anticoagulation; 3.8ml wasted 13:41:31 Balloon removed over the wire. 13:44:58 SMART Flex 5 X 40 X 120 stent ([id number]) was deployed across Distal Superficial Femoral, Left . 13:45:11 Stent catheter was removed intact over wire. 13:46:24 Inflation number: 2 The POWERFLEX PRO 5.0 x 20 x 135cm balloon ([id number]) was reinflated across the Distal Superficial Femoral, Left, to 11 LEA for 0:00 (min:sec). 13:46:40 Inflation number: 3 The POWERFLEX PRO 5.0 x 20 x 135cm balloon ([id number]) was reinflated across the Distal Superficial Femoral, Left, to 5 LEA for 0:00 (min:sec). 13:46:43 Balloon removed over the wire. 13:48:41 LONG SHEATH EXCHANGED FOR SHORT SHEATH 13:49:05 EXOSEAL 6Fr (EX600) opened to sterile field. 13:49:17 Sheath removed intact; hemostasis achieved with Exoseal to the Right Femoral artery. 13:49:19 Procedure ended.(Physican Out) 13:50:07 Fluoroscopy time 04.80 minutes. 13:50:10 Flurop Dose total: 169 13:50:10 Fluoroscopy dose: 169 mGy 13:50:16 Contrast amount:Isovue 300 101ml. 13:50:18 Sharps counted by scrub and verified by R.N. 13:50:26 Post-op/insertion site Right Femoral artery dressed using a 4 x 4 and Tegaderm. 13:50:30 Post right femoral artery:stable, soft, clean and dry 13:50:32 Post-procedure physical assessment completed. ASA score P 2 - A patient with mild systemic disease as per Pelon Sy MD. 13:50:35 Post procedure rhythm: unchanged. 13:50:37 Estimated blood loss: 10 ml 13:50:38 Post procedure instruction explained to patient.Patient verbalizes understanding. 13:50:39 Patient needs reinforcement of post procedure teaching. 13:51:52 Procedure type changed to Cath procedure, Diagnostic procedure, Sedation Charges, Moderate Sedation up to 30 minutes, Peripheral Cath Diagnostic Procedure, Cath Peripheral, Iltch-Scwteqd-Gei-Off, Peripheral vascular Intervention, Stent, Stent-Fem/Popw/plasty 13:53:29 Procedure and supply charges have been captured, reviewed, submitted and are correct. 13:53:31 Procedure Complication : No complications 13:53:33 Vital chart was stopped 13:53:34 See physician's report for complete and final results. 13:53:36 Report given to PCU. 13:53:45 Patient transfered to PCU with Bed. 13:54:13 Procedure ended. 13:54:13 Full Disclosure recording stopped 13:54:19 End room use (Document Last) Intervention Summary Intervention Notes Time ActionType Lesion and Equipment Action# Pressure Duration Attributes Used 13:41:10 Inflate Distal POWERFLEX 1 6 00:10 balloon Superficial PRO 5.0 x Femoral, 20 x 135cm Left balloon ([id number]) 13:44:58 Deploy self Distal SMART Flex 1 expanding Superficial 5 X 40 X stent Femoral, 120 stent Left ([id number]) 13:46:24 Reinflate Distal POWERFLEX 2 11 00:00 balloon Superficial PRO 5.0 x Femoral, 20 x 135cm Left balloon ([id number]) 13:46:40 Reinflate Distal POWERFLEX 3 5 00:00 balloon Superficial PRO 5.0 x Femoral, 20 x 135cm Left balloon ([id number]) Device Usage Item Name Manufacture Quantity Catalog Number Hospital Part Current Mini mal Lot# / Charge Number Stock Stock Serial# Code ACIST Acist 1 85700 851154 037815 913023 20 Syringe Medical (83392) Systems Inc ACIST Hand Acist 1 53869 965802 810100 251036 5 Control Medical (59650) Systems Inc ACIST Acist 1 06575 627081 538315 797944 5 Manifold Medical (71993) Systems Inc Medline Cath Cardinal 1 [id number] 783277 62864 237690 5 Pack Health ([id number]) Bag Decanter Microtek 1 039015 91103 432018 5 () Medical Inc. DIAGNOSTIC St Remy 1 486793 508678 333491 983428 30 WIRE .035 260cm J wire (696073) SHEATH 6FR Terumo 1 PAU019 653770 173089 832653 40 Weldon (OMI558) INFLATOR Merit 1 HM8345 285651 683699 681142 15 [facility] Medical BasixCompak (AL6794) GLIDE WIRE Terumo 1 [id number] 255822 267206 020368 5 Super Stiff Angled 260cm (WB3287) DIAGNOSTIC Cardinal 1 [id number] 692399 837375 351089 10 UF 5Fr Health catheter ([id number]) CHOICE PT [place] 1 [id number] 101051 920994 887660 5 Extra Scientific Support J 300cm guide wire ([id number]) PERCUTANEOUS SKKY, Inc. Medical 1 C55578 658007 400932 5 ENTRY 19GA needle POWERFLEX Cardinal 1 [id number] 272432 710331 743143 5 PRO 5.0 x 20 Health x 135cm balloon ([id number]) SMART Flex 5 Cardinal 1 [id number] 993821 696071 0 X 40 X 120 Health stent ([id number]) EXOSEAL 6Fr Cardinal 1 EX600 878756 447985 275814 10 (EX600) Health Signature Audit Harvey Stage Time Signature Unsigned Intra-Procedure 12/01/2017 Xi Rey 1:58:20 PM RT(R) Signatures Monitor : Xi Rey Signature : RT Date : Time : [id number] [place] [address]
--- NOTE | ~2017-11-30 | HP ---
PATIENT: TJ CRAIG MEDICAL RECORD: [id number] ACCOUNT: [id number] LOCATION:[address] : 60 ADMISSION DATE: 11/30/17 HISTORY AND PHYSICAL EXAMINATION DIAGNOSES: 1. Claudication. 2. Peripheral vascular disease. 3. Coronary artery disease. 4. Insulin-dependent diabetes. 5. Hypertension. HISTORY OF PRESENT ILLNESS: Ms. Craig presents with left leg pain. She recently underwent left leg transcatheter revascularization. The left leg has not gotten any better. She has severe disease distally. She complains mostly pain in her calf and foot. REVIEW OF SYSTEMS: The patient reports easy bruising but reports no swollen glands. The patient reports no fever, no night sweats, no significant weight gain, no significant weight loss. No significant exercise tolerance. The patient reports no dry eyes, no irritation, no vision change. Patient reports no difficulty hearing and no ear pain. Patient reports no frequent nose bleeds or nose and sinus problems. Patient reports on arm pain on exertion. No shortness of breath while lying down. No history of heart murmur. Patient reports no cough, no wheezing or coughing up blood. Patient reports no abdominal pain, no vomiting. Normal appetite. No diarrhea and not vomiting blood. No nausea and no constipation. Patient reports no incontinence. No difficulty urinating. No hematuria. No increased frequency. Patient reports no muscle aches. No weakness, no arthralgias, no back pain. No swelling of the extremities. Patient reports no abnormal mole, no jaundice, no rashes. Reports no loss of consciousness. No weakness and no numbness. No seizures, dizziness, or headaches. The patient reports no depression, no sleep disturbance, feeling safe in a relationship and no alcohol abuse. Patient reports on fatigue. Reports no runny nose or sinus pressure. No itching, no hives, and no frequent sneezing. PHYSICAL EXAMINATION: GENERAL APPEARANCE: Well-nourished, well-developed, appears stated age. Level of distress, comfortable. PSYCHIATRIC: Mental status, alert, normal affect. Orientation, oriented to time, place and person. EYES: Lids and conjunctiva, noninjected. No discharge, no pallor. ENT: Lips, teeth, gums, normal dentition. Oropharynx, no cyanosis, no pallor. NECK: Carotid arteries, bilateral normal upstroke, no bruits, no thrills. JUGULAR VEINS: No jugular venous pressure or distention. CERVICAL LYMPH NODES: Nontender, nonenlarged. THYROID: Not enlarged. Nontender. No nodules. LUNGS: Respiratory effort, unlabored. CHEST: Normal curvature. No thoracic deformity. No chest wall tenderness. Percussion, resonant. Auscultation, clear. No wheezes, no rales, no rhonchi. CARDIOVASCULAR: Precordial exam, nondisplaced. No heaves or pericardial thrills. Rate and rhythm, regular. Heart sounds, normal S1, normal S2. No S3, no gallop, no rub. Systolic murmur, not heard. Diastolic murmur, not heard. EXTREMITIES: No cyanosis, no edema. Peripheral pulses, full and equal in all extremities, except as noted. No bruits appreciated. HISTORY AND PHYSICAL [id number] TJ CRAIG ABDOMEN: Soft, nondistended. Normal aorta. No bruit. Nontender. No masses. Liver, nontender, no hepatomegaly. Spleen, nontender, no splenomegaly. MUSCULOSKELETAL: No joint tenderness. No joint swelling. No erythema. NEUROLOGICAL: Normal gait, normal strength, normal tone. SKIN: Warm and dry. OVERALL IMPRESSION: Left leg pain with claudication and we will do relook angiography with really limb salvage at this time, there is little left to be done with this leg. Further care depends upon the findings of the angiography. TRANSINT:[id number] Voice Confirmation ID: [id number] DOCUMENT ID: [id number] TRAE FORD MD at 1057 CC: [id number] DICTATION DATE: 11/30/17 135 CHANNELER OUTSOLE: 11/30/17 1400 ADM IN [facility] [address] [place] [address]
--- NOTE | ~2017-11-30 | OP ---
PATIENT NAME: TJ CRAIG MEDICAL RECORD: [id number] :60 LOCATION:D.M2 D.2118 ADMISSION DATE:11/30/17 SURGEON: TRAE FORD MD DATE OF OPERATION: 12/01/2017 PROCEDURES: 1. Stent placement, popliteal, left. 2. TRANSPORT ENGINEER, popliteal, left. 3. Aortofemoral runoff. 4. Abdominal aortography. INDICATION: Claudication and peripheral vascular disease. PROCEDURE IN DETAIL: After informed consent was obtained and after a detailed description of risks, benefits as well as alternative therapies, the patient elected to proceed with angiogram and angioplasty. The right femoral area was prepped and draped in normal sterile fashion. Right femoral artery was cannulated via modified negative with placement of 6-Italian sheath. All catheters exchanged through this sheath. FINDINGS: Abdominal aortography was performed. The catheter was pulled down for aortofemoral runoff. Abdominal aortography reveals moderate disease of the abdominal aorta, but no flow limiting stenosis. No dissection or aneurysm formation. RIGHT LEG: A. Iliac: The common internal and external iliacs have mild irregularities, no flow-limiting stenosis. There are previously placed stents, these are widely patent. B. Femoral system: The common and deep femoral are widely patent. Superficial femoral has a 99% stenosis in the mid vessel, otherwise only moderate irregularities. C. Popliteal has previously placed stent. This is widely patent. Infrapopliteal vessels are patent giving 3-vessel runoff to the foot, although diffusely diseased. LEFT LEG: A. Iliac: The common internal and external iliacs are widely patent, previously placed stents are widely patent. B. Femoral system: The common superficial and deep femoral are widely patent, previously placed stents are widely patent. C. Popliteal and infrapopliteal vessels: Popliteal has a 95% stenosis in the mid vessel, otherwise there is severe diffuse disease infrapopliteally, but patent 3-vessel runoff to the foot. TRANSPORT ENGINEER STENT OF THE POPLITEAL: The balloon used was a 5.0 balloon. This yielded suboptimal result with severe intimal dissection. Stenting was undertaken with a 5 x 40 SMART stent. Result was 0% residual. IMPRESSION: Successful percutaneous transluminal angioplasty stent of the left popliteal going from 95% initial stenosis to 0% residual stenosis. PLAN: For TRANSPORT ENGINEER stent of the right SFA in the near future. TRANSINT:[id number] Voice Confirmation ID: [id number] DOCUMENT ID: [id number] OPERATIVE REPORT [id number] TJ CRAIG JEFFREY MD CC: [id number] DICTATION DATE: 12/01/17 1358 ANESTHESIA ASSOCIATE: 12/01/17 1415 ADM IN [facility] [address] [place] [id number]
[2017-11-30 02:48] LABS: BASOPHILS 0.5 % (0-2); EOSINOPHILS 1.7 % (0-7); HEMATOCRIT 40.6 % (36.0-48.0); HEMOGLOBIN 14.1 g/dL (12-16); IMMATURE GRANULOCYTES 0.3 % (0-5); MCH 31.5 pg (26.0-34.0); MCHC 34.7 g/dL (31.0-37.0); MCV 90.6 fL (80.0-100.0); MEAN PLATELET VOLUME 10.6 fL (7.4-10.4); MONOCYTES 6.1 % (2-11); NEUTROPHILS 49.4 % (40-80); PLATELET COUNT 307 10x3/uL (130-400); RBC 4.48 10x6/uL (4.00-5.40); RDW 13.3 % (11.5-14.5); WBC 10.8 10x3/uL (4.8-10.8)
[2017-11-30 02:58] LABS: ALBUMIN 3.3 g/dL (3.4-5.0); ANION GAP 14.8 mmol/L (8-16); BILIRUBIN - TOTAL 0.15 mg/dL (0.2-1.3); CALCIUM 8.3 mg/dL (8.5-10.1); CARBON DIOXIDE 25.7 mmol/L (21.0-32.0); CREATININE - SERUM 1.1 mg/dL (0.6-1.3); INR 0.92 (0.85-1.17); POTASSIUM - SERUM 3.5 mmol/L (3.5-5.1); PROTEIN - SERUM 7.9 g/dL (6.4-8.2)
[2017-11-30 02:59] LABS: APTT 26.8 SECONDS (22.8-39.4)
[2017-11-30 08:08] VITALS: BP 145/88; BMI 27.5
[2017-11-30 08:51] VITALS: BP 187/65
[2017-11-30 10:26] VITALS: Ht 157.5 cm; Wt 68.2 kg
[2017-11-30 11:40] VITALS: BP 172/77
[2017-11-30 16:48] VITALS: BP 166/72
[2017-11-30 22:13] VITALS: BP 163/67
[2017-12-01 01:26] VITALS: BP 142/61
[2017-12-01 05:00] VITALS: BP 126/67
[2017-12-01 08:38] VITALS: BP 159/49
[2017-12-01 11:40] VITALS: BP 146/71
== END 2017-12-01 19:38 | disposition home or self-care (01) ==
LOC: D.ER 02:10 → OBSVTIME 06:14 → D.M2 06:14 → D.SDCHOLD 12-01 14:33 → D.M2 12-01 14:33
PROVIDERS: Emergency Medicine
DX: E11.51 Type 2 diabetes mellitus with diabetic peripheral angiopathy without gangrene (principal); Z79.4 Long term (current) use of insulin; I25.10 Atherosclerotic heart disease of native coronary artery without angina pectoris; I10 Essential (primary) hypertension

== ENCOUNTER 2017-12-06 07:52 | Outpatient (CLI) | payer MEDICAID ==
[~2017-12-06] VITALS: Ht 157.5 cm; Wt 68.2 kg
--- NOTE | ~2017-12-06 | HEMODYNAMI ---
PATIENT:TJ CRAIG MEDICAL RECORD: [id number] : 60 LOCATION:[facility] ADMISSION DATE: 12/06/17 Generatedon:12/06/201711:08 Patient name: TJ CRAIG Patient #: [id number] : 1960 Date of study: 12/06/2017 Page: Of Hemodynamic Procedure Report Patient Data Patient Demographics Procedure consent was obtained First Name: TJ Gender: Female Last Name: KIARA : 1960 [facility] Initial: ALTA Age: 57 year(s) Patient #: [id number] Race: Other SSN: [id number] Additional ID: [id number] Contact details [address]: [address] [place] [address] [address] State: [place] City: [place] Zip code: [address] Past Medical History Allergies Allergen Reaction Date Comments Reported Other allergy 12/21/2016 steroids Other allergy 02/16/2017 Cortico-Steroids Other allergy 08/09/2017 Prednisone, Steroids Other allergy 08/30/2017 Prednisone Other allergy 09/04/2017 PREDNISONE, STEROIDS Other allergy 11/16/2017 CORTICOSTEROIDS Other allergy 12/01/2017 STEROIDS Admission Admission Data Admission Date: 12/06/2017 Admission Time: 7:52 Lab Results Lab Result Date: 12/01/2017 Lab Result Time: 0:00 Biochemistry Name Units Result Min Max BUN mg/dl 16 --(---*)-- 7 18 Creatinine mg/dl 1.1 --(--*-)-- 0.6 1.3 CBC Name Units Result Min Max Hemoglobin g/dl 14.1 --(*---)-- 13.5 17.5 Procedure Procedure Types Cath Procedure Diagnostic Procedure Sedation Charges Moderate Sedation up to 15 minutes Peripheral Cath Diagnostic Procedure Cath Peripheral TWISTER FRAME TENDER Peripheral Abd/Extremity Extremities Right Lower Ext Arterio Peripheral vascular Intervention Stent Stent-Additional Stent-Fem/Popw/plasty Procedure Description Procedure Date Procedure Date: 12/06/2017 Procedure Start Time: 10:37 Procedure End Time: 11:07 Procedure Staff Name Function Pelon Sy MD Performing Physician Kim Rasmussen RT Monitor Everardo Fraga RN Nurse Gilbert Osullivan RT Scrub Procedure Data Cath Procedure Fluoroscopy Diagnostic fluoroscopy Total fluoroscopy Time: 7.9 time: 7.9 min min Diagnostic fluoroscopy Total fluoroscopy dose: 98 dose: 98 mGy mGy Contrast Material Contrast Material Type Amount (ml) Isovue 300 87 Entry Location Entry Primary Successful Side Size Upsize Upsize Entry Closure Succes sful Closure Location (Fr) 1 (Fr) 2 (Fr) Remarks Device Remarks Femoral Left 6 Fr 6 Fr 6 Fr Exoseal artery Short Long Short Estimated blood loss: 10 ml Diagnostic catheters Device Type Used For End Catheter Placement DIAGNOSTIC IMT 5Fr Procedure Catheter ([id number]) Procedure Complications No complications Procedure Medications Medication Administration Route Dosage 0.9% NaCl I.V. 100 ml/hr Oxygen etCO2 Nasal cannula 2 l/min Heparin Flush Bag added to field 2 bags (1000units/500ml NS) Lidocaine 2% added to field 20 Versed I.V. 2 mg Fentanyl I.V. 100 mcg Versed I.V. 2 mg Fentanyl I.V. 100 mcg Versed I.V. 1 mg Heparin Bolus I.V. 4000 units Fentanyl I.V. 50 mcg Versed I.V. 0.5 mg Fentanyl I.V. 25 mcg Plavix P.O. 75 mg Hemodynamics Rest HGB: 14.1 (g/dl) Heart Rate: 68 (bpm) Snapshots Pre Cath Intra NCS Post Cath Vital Signs Time Heart Resp SPO2 etCO2 NIBP (mmHg) Rhythm Pain Sedation Rate (ipm) (%) (mmHg) Status Level (bpm) 9:41:04 73 13 100 36.5 203/75(133) NSR 0 (11) 10(A) , No pain 9:45:54 75 15 100 39.6 170/70(125) NSR 0 (11) 10(A) , No pain 9:51:26 69 13 100 42.6 161/65(116) NSR 0 (11) 10(A) , No pain 9:56:54 70 14 100 44 152/61(104) NSR 0 (11) 10(A) , No pain 10:02:19 71 14 100 43.3 151/63(117) NSR 0 (11) 10(A) , No pain 10:07:08 72 15 100 41.8 155/65(110) NSR 0 (11) 10(A) , No pain 10:11:55 74 16 99 41.1 164/76(115) NSR 0 (11) 10(A) , No pain 10:17:25 73 15 99 40.3 160/70(104) NSR 0 (11) 10(A) , No pain 10:22:13 71 14 99 42.5 150/69(112) NSR 0 (11) 10(A) , No pain 10:27:00 69 14 100 39.6 148/65(114) NSR 0 (11) 10(A) , No pain 10:31:49 71 15 100 40.3 157/65(111) NSR 0 (11) 10(A) , No pain 10:36:36 71 14 100 40.3 151/63(97) NSR 0 (11) 10(A) , No pain 10:41:18 73 15 98 38.8 142/67(125) NSR 0 (11) 10(A) , No pain 10:46:44 74 17 100 40.3 135/69(128) NSR 0 (11) 9(A) , No pain 10:51:25 79 15 99 40.3 140/91(131) NSR 0 (11) 9(A) , No pain 10:56:09 78 15 98 47.8 127/73(118) NSR 0 (11) 9(A) , No pain 11:00:48 82 15 98 49.3 126/86(119) NSR 0 (11) 10(A) , No pain 11:05:29 81 15 98 50 126/72(121) NSR 0 (11) 10(A) , No pain Medications Time Medication Route Dose Verified Delivered Reason Notes Effectiveness by by 9:38:41 0.9% NaCl I.V. 100 Everardo Everardo Per physician ml/hr Flakito Fraga RN RN 9:38:50 Oxygen etCO2 2 Everardo Everardo Per physician Nasal l/min Flakito Fraga cannula RN RN 9:39:03 Heparin Flush added 2 Everardo Everardo used for Bag to bags Flakito Fraga procedure (1000units/500ml field RN RN NS) 9:39:16 Lidocaine 2% added 20ml Everardo Everardo for local to vial Flakito Fraga anesthetic field RN RN 10:32:40 Versed I.V. 2 mg Everardo Everardo for sedation Flakito Fraga RN RN 10:32:48 Fentanyl I.V. 100 Everardo Everardo for sedation mcg Flakito Fraga RN RN 10:38:08 Versed I.V. 2 mg Everardo Everardo for sedation Flakito Fraga RN RN 10:38:14 Fentanyl I.V. 100 Everardo Everardo for sedation mcg Flakito Fraga RN RN 10:39:30 Versed I.V. 1 mg Everardo Everardo for sedation Lorroger Fraga RN RN 10:40:46 Heparin Bolus I.V. 4000 Everardo Everardo for units Lorigan Flakito anticoagulation RN RN 10:41:40 Fentanyl I.V. 50 Everardo Everardo for sedation mcg Flakito Fraga RN RN 10:51:22 Versed I.V. 0.5 Everardo Everardo for sedation mg Flakito Fraga RN RN 10:51:30 Fentanyl I.V. 25 Everardo Everardo for sedation mcg Flakito Fraga RN RN 11:02:00 Plavix P.O. 75 mg Everardo Everardo for Lorroger Fraga antiplatelet RN RN therapy Procedure Log Time Note 9:25:58 Gilbert GARZON(R) (CV) sent for patient. Start room use. 9:30:03 Time tracking: Regular hours (M-F 7:00 - 5:00) 9:30:07 Plan of Care:Hemodynamics will remain stable., Cardiac rhythm will remain stable., Comfort level will be maintained., Respiratory function will remain adequate., Patient/ family verbilizes understanding of procedure., Procedure tolerated without complication., Recovers from procedure without complications.. 9:30:41 Patient received from Pre/Post Procedure Room to CCL 1 Alert and oriented. Tansferred to table in Supine position. 9:37:54 Use device set CATH PACK 9:37:55 ACIST Syringe (10944) opened to sterile field. 9:37:56 ACIST Hand Control (22168) opened to sterile field. 9:37:56 ACIST Manifold (32719) opened to sterile field. 9:37:57 Medline Cath Pack ([id number]) opened to sterile field. 9:37:57 Bag Decanter (2001S) opened to sterile field. 9:37:58 DIAGNOSTIC WIRE .035 260cm J wire (153761) opened to sterile field. 9:38:04 INFLATOR Merit BasixCompak (AZ3912) opened to sterile field. 9:38:05 PERCUTANEOUS ENTRY 19GA needle opened to sterile field. 9:38:20 GLIDE WIRE Super Stiff Angled 260cm (HE0934) opened to sterile field. 9:38:41 0.9% NaCl 100 ml/hr I.V. was administered by Everardo Fraga RN; Per physician; 9:38:50 Oxygen 2 l/min etCO2 Nasal cannula was administered by Everardo Fraga RN; Per physician; 9:39:03 Heparin Flush Bag (1000units/500ml NS) 2 bags added to field was administered by Everardo Fraga RN; used for procedure; 9:39:10 Warm blankets applied, and kingston hugger turned on for patient comfort. 9:39:10 Correct patient and procedure confirmed by team. 9:39:12 Signed procedure consent form obtained from patient. 9:39:12 ECG and BP/O2 sat monitors applied to patient. 9:39:13 Vital chart was started 9:39:14 Full Disclosure recording started 9:39:16 Lidocaine 2% 20ml vial added to field was administered by Everardo Fraga RN; for local anesthetic; 9:39:18 Rhythm: sinus rhythm 9:40:35 H&P Date Dictated: 12/06/2017 New H&P dictated by physician.. 9:40:36 Pre-procedure instructions explained to patient. 9:40:37 Pre-op teaching completed and patient verbalized understanding. 9:40:39 Family in patients room. 9:40:41 Patient NPO since Midnight. 9:44:24 Is the patient allergic to Iodine/contrast media? No. 9:44:26 Is patient on blood thinner?Yes 9:44:28 ACC The patient was administered the following blood thiners within the last 24 hours: ACCPlavix 9:44:30 Patient diabetic? No. 9:44:34 Previous problem with sedation/anesthesia? No ? 9:44:58 Snore? No 9:44:59 Sleep apnea? No 9:45:01 Deviated septum? No 9:45:01 Opens mouth fully? Yes 9:45:02 Sticks out tongue? Yes 9:45:03 Airway obstruction? No ? 9:45:06 Dentures? No ? 9:45:13 Pre procedure: right dorsailis pedis pulse Doppler 9:45:18 Pre procedure: left dorsailis pedis pulse 1+ Palpable, but thready & weak; easily obliterated 9:45:20 Patient pain scale 0/10 ?. 9:45:30 IV patent on arrival in left forearm with 0.9% NaCl at [facility]. 9:45:32 Lab results completed and on chart. 9:45:36 Bilateral groins area was prepped with chlora-prep and draped in sterile fashion 9:45:37 Alarms reviewed by R. N. 9:45:38 Sharps counted by scrub and verified by R.N. 9:47:20 Baseline sample Acquired. 9:51:23 Zero performed for pressure channel P1 10:32:12 Final Timeout: patient, procedure, and site verified with staff and physician. All members of the team are in agreement. 10:32:15 Left groin site verified by team. 10:32:17 Physical assessment completed. ASA score P 2 - A patient with mild systemic disease as per Pelon Sy MD. 10:32:20 Sedation plan: IV Moderate Sedation Medication:Versed, Fentanyl 10:32:40 Versed 2 mg I.V. was administered by Everardo Fraga RN; for sedation; 10:32:48 Fentanyl 100 mcg I.V. was administered by Everardo Fraga RN; for sedation; 10:37:42 Procedure started. 10:37:46 Local anesthetic to left femerol artery with Lidocaine 2% by Pelon Sy MD.INITIAL ACCESS ONLY 10:38:08 Versed 2 mg I.V. was administered by Everardo Fraga RN; for sedation; 10:38:14 Fentanyl 100 mcg I.V. was administered by Everardo Fraga RN; for sedation; 10:39:25 A 6 Fr Short sheath was inserted into the Left Femoral artery 10:39:30 Versed 1 mg I.V. was administered by Everardo Fraga RN; for sedation; 10:39:51 SUPER STIFF GLIDE wire advanced. 10:40:08 A DIAGNOSTIC IMT 5Fr Catheter ([id number]) was advanced over the wire and used for Procedure. 10:40:46 Heparin Bolus 4000 units I.V. was administered by Everardo Fraga RN; for anticoagulation; 10:40:50 WIRE ADVANCED DOWN TO RSFA 10:41:16 Catheter removed. 10:41:24 Sheath upsized to a 6 Fr Long. 10:41:40 Fentanyl 50 mcg I.V. was administered by Everardo Fraga RN; for sedation; 10:41:50 SHEATH Prelude 6Fr 0.035 (AQK-7S-63-035) opened to sterile field. 10:42:21 Wire removed. 10:42:52 CHOICE PT Extra Support J 300cm guide wire ([id number]) opened to sterile field. 10:43:59 CHOICE PT ES wire advanced. 10:44:30 Procedure type changed to Cath procedure, Diagnostic procedure, Sedation Charges, Moderate Sedation up to 15 minutes, Peripheral Cath Diagnostic Procedure, Cath Peripheral, TWISTER FRAME TENDER Peripheral, Abd/Extremity, Extremities, Right Lower Ext Arterio, Peripheral vascular Intervention, Stent, Stent-Additional, Stent-Fem/Popw/plasty 10:44:50 Inflate balloon Inflation number: 1 A SABER 5.0 X 100 X 150 balloon ([id number]) was prepped and advanced across the Mid Superficial Femoral, Right, then inflated to 13 LEA for 0:06 (min:sec). 10:45:08 Inflation number: 2 The SABER 5.0 X 100 X 150 balloon ([id number]) was reinflated across the Mid Superficial Femoral, Right, to 13 LEA for 0:07 (min:sec). 10:45:48 Balloon removed over the wire. 10:47:52 SMART 6 X 150 X 120 stent ([id number]) was deployed across Mid Superficial Femoral, Right . 10:48:08 Stent catheter was removed intact over wire. 10:50:05 SMART 6 X 20 X 120 stent ([id number]) was deployed across Mid Superficial Femoral, Right . 10:51:22 Versed 0.5 mg I.V. was administered by Everardo Fraga RN; for sedation; 10:51:30 Fentanyl 25 mcg I.V. was administered by Everardo Fraga RN; for sedation; 10:51:49 Inflation number: 3 The SABER 5.0 X 100 X 150 balloon ([id number]) was reinflated across the Mid Superficial Femoral, Right, to 13 LEA for 0:09 (min:sec). 10:52:09 Inflation number: 4 The SABER 5.0 X 100 X 150 balloon ([id number]) was reinflated across the Mid Superficial Femoral, Right, to 17 LEA for 0:09 (min:sec). 10:52:19 Inflation number: 5 The SABER 5.0 X 100 X 150 balloon ([id number]) was reinflated across the Mid Superficial Femoral, Right, to 11 LEA for 0:04 (min:sec). 10:52:22 Balloon removed over the wire. 10:54:06 Inflation number: 1 The SABER 5.0 X 100 X 150 balloon ([id number]) was reinflated across the Mid Popliteal, Right, to 13 LEA for 0:05 (min:sec). 10:54:21 Inflation number: 2 The SABER 5.0 X 100 X 150 balloon ([id number]) was reinflated across the Mid Popliteal, Right, to 17 LEA for 0:08 (min:sec). 10:54:46 Balloon removed over the wire. 10:55:37 Inflation number: 3 The SABER 5.0 X 100 X 150 balloon ([id number]) was reinflated across the Mid Popliteal, Right, to 17 LEA for 0:15 (min:sec). 10:55:42 Balloon removed over the wire. 10:58:18 Place stent Inflation Number: 4 A LEONOR 5 x 18 x 135 stent ([id number]) was prepped and advanced across the Mid Popliteal, Right. The stent was deployed at 15 ELA for 0:14 (min:sec). 10:58:53 Stent catheter was removed intact over wire. 10:58:56 Wire removed. 10:59:11 Sheath upsized to a 6 Fr Short. 11:00:03 Sheath removed intact; hemostasis achieved with Exoseal to the Left Femoral artery. 11:00:05 Procedure ended.(Physican Out) 11:00:15 Fluoroscopy time 07.90 minutes. 11:00:25 Flurop Dose total: 98 11:00:25 Fluoroscopy dose: 98 mGy 11:00:39 Contrast amount:Isovue 300 87ml. 11:00:50 Sharps counted by scrub and verified by R.N. 11:00:51 Insertion/operative site no bleeding no hematoma. 11:00:55 Post-op/insertion site Left Femoral artery dressed using a 4 x 4 and Tegaderm. 11:01:02 Post left femerol artery:stable, clean and dry 11:01:04 Post Procedure Pulses reassessed and unchanged 11:01:06 Post-procedure physical assessment completed. ASA score P 2 - A patient with mild systemic disease as per Pelon Sy MD. 11:01:11 Post procedure rhythm: unchanged. 11:01:13 Estimated blood loss: 10 ml 11:01:14 Post procedure instruction explained to patient.Patient verbalizes understanding. 11:01:15 Patient needs reinforcement of post procedure teaching. 11:02:00 Plavix 75 mg P.O. was administered by Everardo Fraga RN; for antiplatelet therapy; 11:03:01 Procedure Complication : No complications 11:03:03 See physician's report for complete and final results. 11:03:20 EXOSEAL 6Fr (EX600) opened to sterile field. 11:03:20 Tegaderm 4 x 4 (1626W) opened to sterile field. 11:03:53 SHEATH 6FR Destination (RSR01) opened to sterile field. 11:07:10 Procedure and supply charges have been captured, reviewed, submitted and are correct. 11:07:10 Vital chart was stopped 11:07:13 Report given to Pre/Post Procedure Room. 11:07:16 Patient transfered to Pre/Post Procedure Room with Stretcher. 11:07:28 Procedure ended. 11:07:28 Full Disclosure recording stopped 11:07:31 End room use (Document Last) Intervention Summary Intervention Notes Time ActionType Lesion and Equipment Action# Pressure Duration Attributes Used 10:44:50 Inflate Mid SABER 5.0 X 1 13 00:06 balloon Superficial 100 X 150 Femoral, balloon Right ([id number]) 10:45:08 Reinflate Mid SABER 5.0 X 2 13 00:08 balloon Superficial 100 X 150 Femoral, balloon Right ([id number]) 10:47:52 Deploy self Mid SMART 6 X 1 expanding Superficial 150 X 120 stent Femoral, stent Right ([id number]) 10:50:05 Deploy self Mid SMART 6 X 1 expanding Superficial 20 X 120 stent Femoral, stent Right ([id number]) 10:51:49 Reinflate Mid SABER 5.0 X 3 13 00:09 balloon Superficial 100 X 150 Femoral, balloon Right ([id number]) 10:52:09 Reinflate Mid SABER 5.0 X 4 17 00:09 balloon Superficial 100 X 150 Femoral, balloon Right ([id number]) 10:52:19 Reinflate Mid SABER 5.0 X 5 11 00:05 balloon Superficial 100 X 150 Femoral, balloon Right ([id number]) 10:54:06 Reinflate Mid SABER 5.0 X 1 13 00:06 balloon Popliteal, 100 X 150 Right balloon ([id number]) 10:54:21 Reinflate Mid SABER 5.0 X 2 17 00:08 balloon Popliteal, 100 X 150 Right balloon ([id number]) 10:55:37 Reinflate Mid SABER 5.0 X 3 17 00:15 balloon Popliteal, 100 X 150 Right balloon ([id number]) 10:58:18 Place stent Mid LEONOR 5 x 4 15 00:14 Popliteal, 18 x 135 Right stent ([id number]) Device Usage Item Name Manufacture Quantity Catalog Number Hospital Part Current Minimal Lot# / Charge Number Stock Stock Serial# Code ACIST Syringe Acist 1 50973 425061 201681 997827 20 (23892) [employer] ACIST Hand Acist 1 04139 438022 718396 482678 5 Control (61728) [employer] ACIST Manifold Acist 1 78499 932401 642883 045074 5 (94284) [employer] Medline Cath Cardinal 1 [id number] 224482 62427 422512 5 [facility] ([id number]) Bag Decanter Microtek 1 844625 61303 370949 5 (2001S) Medical Inc. DIAGNOSTIC WIRE St Remy 1 444675 646686 361509 359227 30 .035 260cm J wire (359503) INFLATOR Merit Merit 1 IR0303 277309 018713 418637 15 [employer] (IN9115) PERCUTANEOUS Cook Medical 1 R46388 341205 817604 5 ENTRY 19GA needle GLIDE WIRE Terumo 1 UJ4821 884393 284751 516056 5 Super Stiff Angled 260cm (ZG4424) DIAGNOSTIC IMT [place] 1 [id number] 412395 336841 14583 5 5Fr Catheter Scientific ([id number]) SHEATH Prelude Merit 1 DMZ-1K-52-35 466983 9292790 209710 5 6Fr 0.035 Medical (HOX-3X-61-035) CHOICE PT Extra [place] 1 [id number] 516399 104205 885433 5 Support J 300cm Scientific guide wire ([id number]) SABER 5.0 X 100 Cardinal 1 [id number] 106962 622719 5 X 150 balloon Health ([id number]) SMART 6 X 150 X Cardinal 1 [id number] 022172 959661 0 [id number] 120 stent Health ([id number]) SMART 6 X 20 X Cardinal 1 [id number] 497297 194201 0 [id number] 120 stent Health ([id number]) LEONOR 5 x 18 Cardinal 1 [id number] 268166 867398 5 [id number] x 135 stent Health ([id number]) EXOSEAL 6Fr Cardinal 1 EX600 190559 213970 257033 10 (EX600) Health Tegaderm 4 x 4 3M 1 1626W 477117 539989 881883 5 (1626W) SHEATH 6FR Terumo 1 RSR01 032114 90754 290570 5 Destination (RSR01) Signature Audit [place] Stage Time Signature Unsigned Intra-Procedure 12/06/2017 Kim 11:08:42 AM Counts RT(R) Signatures Monitor : Kim Signature : Counts RT Date : Time : [place] [address] [place] [address]
--- NOTE | ~2017-12-06 | HP ---
PATIENT: TJ CRAIG MEDICAL RECORD: [id number] ACCOUNT: [id number] LOCATION:[facility] : 60 ADMISSION DATE: 12/06/17 HISTORY AND PHYSICAL EXAMINATION ADMITTING DIAGNOSES: 1. Right leg claudication. 2. Peripheral vascular disease. 3. Coronary artery disease. 4. Hypertension. 5. Hyperlipidemia. 6. Diabetes. HISTORY OF PRESENT ILLNESS: Ms. Craig presents with right leg claudication. She has critical disease of the right leg, is now for TENTERING MACHINE FEEDER stent of the right leg. PHYSICAL EXAMINATION: GENERAL APPEARANCE: Well-nourished, well-developed, appears stated age. Level of distress, comfortable. PSYCHIATRIC: Mental status, alert, normal affect. Orientation, oriented to time, place and person. EYES: Lids and conjunctiva, noninjected. No discharge, no pallor. ENT: Lips, teeth, gums, normal dentition. Oropharynx, no cyanosis, no pallor. NECK: Carotid arteries, bilateral normal upstroke, no bruits, no thrills. JUGULAR VEINS: No jugular venous pressure or distention. CERVICAL LYMPH NODES: Nontender, nonenlarged. THYROID: Not enlarged. Nontender. No nodules. LUNGS: Respiratory effort, unlabored. CHEST: Normal curvature. No thoracic deformity. No chest wall tenderness. Percussion, resonant. Auscultation, clear. No wheezes, no rales, no rhonchi. CARDIOVASCULAR: Precordial exam, nondisplaced. No heaves or pericardial thrills. Rate and rhythm, regular. Heart sounds, normal S1, normal S2. No S3, no gallop, no rub. Systolic murmur, not heard. Diastolic murmur, not heard. EXTREMITIES: No cyanosis, no edema. Peripheral pulses, full and equal in all extremities, except as noted. No bruits appreciated. ABDOMEN: Soft, nondistended. Normal aorta. No bruit. Nontender. No masses. Liver, nontender, no hepatomegaly. Spleen, nontender, no splenomegaly. MUSCULOSKELETAL: No joint tenderness. No joint swelling. No erythema. NEUROLOGICAL: Normal gait, normal strength, normal tone. SKIN: Warm and dry. REVIEW OF SYSTEMS: The patient reports easy bruising but reports no swollen glands. The patient reports no fever, no night sweats, no significant weight gain, no significant weight loss. No significant exercise tolerance. The patient reports no dry eyes, no irritation, no vision change. Patient reports no difficulty hearing and no ear pain. Patient reports no frequent nose bleeds or nose and sinus problems. Patient reports on arm pain on exertion. No shortness of breath while lying down. No history of heart murmur. Patient reports no cough, no wheezing or coughing up blood. Patient reports no abdominal pain, no vomiting. Normal appetite. No diarrhea and not vomiting blood. No nausea and no constipation. Patient reports no incontinence. No difficulty urinating. No hematuria. No increased frequency. Patient reports no muscle aches. No weakness, no arthralgias, no back pain. No swelling of the extremities. Patient reports no abnormal mole, no jaundice, no rashes. Reports no loss of consciousness. No weakness and no numbness. No seizures, dizziness, HISTORY AND PHYSICAL [id number] CRAIG,ASHOK or headaches. The patient reports no depression, no sleep disturbance, feeling safe in a relationship and no alcohol abuse. Patient reports on fatigue. Reports no runny nose or sinus pressure. No itching, no hives, and no frequent sneezing. OVERALL IMPRESSION: Claudication of right leg. Proceed with TENTERING MACHINE FEEDER stent of right leg. TRANSINT:[id number] Voice Confirmation ID: [id number] DOCUMENT ID: [id number] TRAE FORD MD at 0956 CC: [id number] DICTATION DATE: 12/06/17910 MEDIA PROFESSIONAL: 12/06/17 1003 DEP CLI 12/06/17 [place] [address] [place] [id number]
--- NOTE | ~2017-12-06 | OP ---
PATIENT NAME: TJ CRAIG MEDICAL RECORD: [id number] :60 LOCATION:D.CAT ADMISSION DATE: SURGEON: TRAE FORD MD DATE OF OPERATION: 12/06/2017 PROCEDURES: 1. Stent placement, SFA, right. 2. Stent placement, popliteal, right. 3. CAR WRECKER, popliteal and SFA, right. 4. Unilateral lower extremity angiography. INDICATION: Claudication and peripheral vascular disease. PROCEDURE IN DETAIL: After informed consent was obtained and after a detailed explanation of risks, benefits as well as alternative therapies, the patient elected to proceed with angiogram and angioplasty. The left femoral area was prepped and draped in normal sterile fashion. Left femoral artery was cannulated via modified Seldinger technique with placement of [id number]-jgo-[id number] sheath. All catheters were exchanged through this sheath. FINDINGS: The right SFA has 95% stenosis. The right popliteal has in-stent restenosis at 95%. The SFA was addressed with a 5.0 balloon yielding suboptimal result with severe intimal dissection. Stenting was undertaken with a 5 x 150 SMART stent. There was in-stent restenosis that would not resolve after ballooning in the distal popliteal. This was addressed with a 5.0 x 18 Jennifer stent. Result was 0% residual throughout islam of brisk distal flow. IMPRESSION: Successful CAR WRECKER, stent of the right leg going from 95% initial stenosis to 0% residual. TRANSINT:[id number] Voice Confirmation ID: [id number] DOCUMENT ID: [id number] TRAE FORD MD at 0956 CC: [id number] DICTATION DATE: 12/06/17 1104 JUNIOR QA ANALYST: 12/06/17 1354 DEP CLI 12/06/17 [facility] [address] [place] [address]
[2017-12-06 08:22] VITALS: BP 138/57; Ht 157.5 cm; Wt 68.2 kg
[2017-12-06 08:39] LABS: BASOPHILS 0.4 % (0-2); EOSINOPHILS 2.6 % (0-7); HEMATOCRIT 40.1 % (36.0-48.0); HEMOGLOBIN 13.6 g/dL (12-16); IMMATURE GRANULOCYTES 0.2 % (0-5); MCH 31.2 pg (26.0-34.0); MCHC 33.9 g/dL (31.0-37.0); MEAN PLATELET VOLUME 10.8 fL (7.4-10.4); MONOCYTES 7.8 % (2-11); PLATELET COUNT 296 10x3/uL (130-400); RBC 4.36 10x6/uL (4.00-5.40); RDW 13.7 % (11.5-14.5); WBC 9.7 10x3/uL (4.8-10.8)
[2017-12-06 08:56] LABS: CALC OSMOLALITY 281 mosm/kg (275-300); CALCIUM 8.8 mg/dL (8.5-10.1); CHLORIDE - SERUM 103 mmol/L (98-107); CREATININE - SERUM 0.7 mg/dL (0.6-1.3); POTASSIUM - SERUM 4.2 mmol/L (3.5-5.1); SODIUM 138 mmol/L (136-145); UREA NITROGEN 17 mg/dL (7-18); eGFR NON AFRICAN AMERICAN > 90 mL/min (90-120)
[2017-12-06 09:05] LABS: GLUCOSE 171 mg/dL (74-106)
== END 2017-12-06 15:00 | disposition home or self-care (01) ==
LOC: D.CATH 07:52
PROVIDERS: Internal Medicine Interventional Cardiology
DX: I70.211 Atherosclerosis of native arteries of extremities with intermittent claudication, right leg (principal); I25.10 Atherosclerotic heart disease of native coronary artery without angina pectoris; I10 Essential (primary) hypertension; E78.5 Hyperlipidemia, unspecified; E11.9 Type 2 diabetes mellitus without complications; Z01.812 Encounter for preprocedural laboratory examination

== ENCOUNTER 2018-02-02 00:29 | Emergency (ER) | payer MEDICAID ==
[~2018-02-02] VITALS: Ht 157.5 cm; Wt 68.0 kg
[2018-02-02 00:47] VITALS: Ht 157.5 cm; Wt 68.0 kg
[2018-02-02 01:44] LABS: BASOPHILS 0.3 % (0-2); EOSINOPHILS 1.5 % (0-7); HEMATOCRIT 35.7 % (36.0-48.0); HEMOGLOBIN 12.1 g/dL (12-16); IMMATURE GRANULOCYTES 0.1 % (0-5); LYMPHOCYTES 36.4 % (15-50); MCH 30.5 pg (26.0-34.0); MCHC 33.9 g/dL (31.0-37.0); MCV 89.9 fL (80.0-100.0); MEAN PLATELET VOLUME 10.9 fL (7.4-10.4); MONOCYTES 7.1 % (2-11); NEUTROPHILS 54.6 % (40-80); PLATELET COUNT 290 10x3/uL (130-400); RBC 3.97 10x6/uL (4.00-5.40); RDW 13.6 % (11.5-14.5); WBC 11.7 10x3/uL (4.8-10.8)
[2018-02-02 02:03] LABS: ALBUMIN 3.1 g/dL (3.4-5.0); ALKALINE PHOSPHATASE 120 U/L (46-116); ALT (SGPT) 19 U/L (10-68); BILIRUBIN - TOTAL 0.12 mg/dL (0.2-1.3); CALC OSMOLALITY 288 mosm/kg (275-300); CALCIUM 9.1 mg/dL (8.5-10.1); CARBON DIOXIDE 26.7 mmol/L (21.0-32.0); CHLORIDE - SERUM 103 mmol/L (98-107); PROTEIN - SERUM 7.6 g/dL (6.4-8.2); SODIUM 138 mmol/L (136-145); UREA NITROGEN 21 mg/dL (7-18); eGFR NON AFRICAN AMERICAN 60 mL/min (90-120)
[2018-02-02 02:04] LABS: GLUCOSE 273 mg/dL (74-106)
[2018-02-02 02:06] LABS: TROPONIN-I < 0.017 ng/mL (0.000-0.060)
[2018-02-02 03:18] VITALS: BP 161/59
== END 2018-02-02 03:10 | disposition home or self-care (01) ==
LOC: D.ER 00:29
PROVIDERS: Family Medicine
DX: G62.9 Polyneuropathy, unspecified (principal); M79.605 Pain in left leg; M79.604 Pain in right leg; Z86.73 Personal history of transient ischemic attack (TIA), and cerebral infarction without residual deficits; E11.9 Type 2 diabetes mellitus without complications; I10 Essential (primary) hypertension; F17.200 Nicotine dependence, unspecified, uncomplicated